=== PATIENT | female | born 1950 | race Caucasian/White ===

== ENCOUNTER 2022-03-08 14:31 | Emergency (ER) | payer MEDICARE, OTHER, SELFPAY ==
[2022-03-08 14:53] VITALS: BP 137/78; PULSE 54; RESP 16; TEMP 37.3; O2SAT 97; BMI 44.4
--- NOTE | 2022-03-08 15:54 | ED_ITS ---
HPI - General Adult General Chief complaint: Dizziness/Vertigo Stated complaint: Heart palpitations, dizziness Time Seen by Provider: 03/08/22 15:13 History of Present Illness HPI narrative: 71-year-old female coming in today complaining of an episode of feeling woozy this morning. She states that she just felt ?lightheaded. She stated that she would half to sometimes sit and rest and the lightheadedness would past and this went on for about 2 hours. The wooziness never lasting for more than a few minutes at a time. She stated that she has been doing her usual daily activities today which includes climbing up and down stairs. She does not feel nauseated, no vomiting, no diaphoresis. She denies chest pain or abdominal pain. She has no headache changes in her vision or hearing. She states that she had a very busy week in that went from morning to night both Tuesday and Tuesday and she was surrounded by many people. Last night she knew she had to get good sleep so she took some NyQuil at around 9:00 p.m.. She also had a bit of a cough and runny nose last night but she does not feel those things this morning. She is concerned that she is having a stroke secondary to her carotid being 78% occluded. She denies any neurologic deficits. She denies any slurred speech. She denies any weakness in any of her legs or arms. She denies difficulty walking in a straight line. She is not confused or feeling sleepy. She recently had an aortic valve replacement secondary to aortic stenosis. And her past medical history is also significant for obesity, hypertension, hyperlipidemia, hypothyroidism, psoriasis, history of lymphocytic colitis. She denies any increasing shortness of breath, swelling of her extremities, difficulty lying to go to sleep at night. Related Data Home Medications Medication Instructions Recorded Confirmed warfarin 5 mg tablet 5 mg PO QDAY 02/25/22 03/08/22 levothyroxine 25 mcg tablet mcg DAILY 03/08/22 Previous Rx's Medication Instructions Recorded atenolol 25 mg tablet 25 mg PO QDAY #90 tab 03/02/22 Allergies Allergy/AdvReac Type Severity Reaction Status Date / Time niacin Allergy Intermediate Hives Verified 03/08/22 15:01 Review of Systems Status of ROS: Reports: 10 or more systems reviewed and unremarkable except as noted in History and below [facility] Medical History (Updated 03/08/22 @ 19:07 by Wanda Moreland MD) History of heart valve stenosis Surgical History (Updated 02/24/22 @ 10:19 by Zina Cardenas) History of aortic valve replacement (06/26/21) History of dilation and curettage (1975) History of hemorrhoidectomy (2014) History of loop recorder (10/2016) History of tubal ligation (1976) Social History Smoking Status: Never smoker How often do you have a drink containing alcohol: never AUDIT-C Alcohol total score: 0 Non-prescribed substance use: denies use Exam Narrative: Exam Narrative: Obese, well-developed patient in no acute distress. Alert and oriented. Answers questions appropriately. Mood and affect are appropriate. Thoughts are goal oriented and rational. No tangential or magical thinking noted. Patient speaks in full sentences without needing to catch her breath. Speech is not slurred or pressured. HEENT: Normocephalic atraumatic. Pupils are equally round reactive to light. Extraocular muscles are intact. Conjunctivae are moist without any icterus noted. Moist mucous membranes. Posterior pharynx is normal. Neck is soft without any lymphadenopathy or thyromegaly. No masses are appreciated. Face is symmetric, with symmetrical facial movement. Cardiovascular: Heart is regular rate and rhythm S1 and S2, S1 is split. Lungs: Clear to auscultation bilaterally no wheezes rhonchi or rales are appreciated. Patient takes deep breaths without any discomfort. Abdomen: Soft and nontender nondistended with normal bowel sounds. Extremities: Bilateral lower extremities have trace edema. Normal DP and PT pulses. Skin: Well perfused without any obvious rashes. Strength is 5/5 of the upper and lower extremities. Reflexes are 2+ and symmetric at the knees. Cranial 3-12 are normal. There no nystagmus either horizontally or vertically. Const: Vital Signs, click to edit/add: Vital Signs - 24 hr 03/08/22 14:53 Temperature 99.1 F Pulse Rate [Right Pulse Oximeter] 54 L Respiratory Rate 16 Blood Pressure [Ri ght Upper Arm] 137/78 Pulse Oximetry 97 Course Vital Signs Vital signs: Initial Vital Signs Temperature 99.1 F 03/08/22 14:53 Temperature Source Temporal Artery Scan 03/08/22 14:53 Pulse Rate 54 L 03/08/22 14:53 Pulse Rhythm 03/08/22 14:53 Respiratory Rate 16 03/08/22 14:53 Blood Pressure 137/78 03/08/22 14:53 Blood Pressure Mean 97 03/08/22 14:53 Blood Pressure Position Sitting 03/08/22 14:53 Pulse Oximetry 97 03/08/22 14:53 Oxygen Delivery Method 03/08/22 14:53 Vital Signs Temperature 99.1 F 03/08/22 14:53 Pulse Rate 54 L 03/08/22 14:53 Respiratory Rate 16 03/08/22 14:53 Blood Pressure 137/78 03/08/22 14:53 Pulse Oximetry 97 03/08/22 14:53 Temperature 99.1 F 03/08/22 14:53 Pulse Rate 54 L 03/08/22 14:53 Respiratory Rate 16 03/08/22 14:53 Blood Pressure 137/78 03/08/22 14:53 Pulse Oximetry 97 03/08/22 14:53 Medical Decision Making MDM Narrative Medical decision making narrative: 71-year-old female with an episode of feeling woozy this morning. Has felt fine for the remainder of the day and since she has been here. Her workup was entirely unremarkable. Patient is reassured. Of note patient is on atenolol, and her pulse was bradycardic-something to discuss with her primary care provider as it may cause feelings of dizziness. Medical Records Medical records reviewed: Yes I reviewed the patient's medical records Lab Data Lab results reviewed: Yes I reviewed the patient's lab results Labs: Lab Results 03/08/22 03/08/22 03/08/22 Range/Units 16:05 16:05 16:09 WBC 7.10 (4.50-11.00) K/uL RBC 4.15 (4.00-5.20) m/uL Hgb 12.4 (12.0-16.0) gm/dL Hct 39.4 (33.0-51.0) % MCV 95 (80-100) fL MCH 30 (26-34) pg MCHC 32 (32-36) gm/dL RDW Coeff of Juan Diego 13.5 (11.5-15.5) % Plt Count 256 (140-440) K/uL Neut % (Auto) 72.1 H (42.0-72.0) % Lymph % (Auto) 17.9 L (20-44) % Bureau % (Auto) 7.0 (0.0-11.0) % Eos % (Auto) 2.3 (0.0-7.0) % Baso % (Auto) 0.6 (0.0-3.0) % Neut # (Auto) 5.10 (1.7-7.0) K/uL Lymph # (Auto) 1.30 (0.90-2.90) K/uL Bureau # (Auto) 0.50 (0.00-0.90) K/UL Eos # (Auto) 0.16 (0.00-0.50) K/uL Baso # (Auto) 0.04 (0.00-0.30) K/uL Abs Immat Gran (auto) 0.01 (0.00-0.30) K/uL Sodium 139 (135-149) mmol/L Potassium 4.3 (3.6-5.1) mmol/L Chloride 108 (96-114) mmol/L Carbon Dioxide 28 (20-32) mmol/L BUN 18 (7-30) mg/dL Creatinine 0.8 (0.5-1.5) mg/dL Estimated Creat Clear 40.07 Estimated GFR 80 ml/min Glucose 99 (60-115) mg/dL Calcium 8.6 (8.4-10.6) mg/dL Total Bilirubin 0.4 (0.1-1.5) mg/dL Direct Bilirubin 0.2 (0.0-0.5) mg/dL AST 37 H (12-35) U/L ALT 37 H (4-35) U/L Alkaline Phosphatase 108 (40-150) U/L Total Protein 6.1 (6.0-8.3) g/dL Albumin 3.5 (3.3-5.0) g/dL Urine Color (Yellow) Urine Appearance (Clear) Urine pH (5.0-8.5) Ur Specific [place] (1.000-1.030) Urine Protein (Negative) Urine Glucose (UA) (Negative) Urine Ketones (Negative) Urine Blood (Negative) Urine Nitrite (Negative) Urine Bilirubin (Negative) Urine Urobilinogen (0.2-1.0) Ur Leukocyte Esterase (Negative) SARS-CoV-2 (PCR) Negative SARS-CoV-2 (Negative) Influenza Type A (PCR) Negative PCR FLU A (Negative) Influenza Type B (PCR) Negative PCR FLU B (Negative) POC Troponin I (0.01-0.04) ng/ml 03/08/22 03/08/22 Range/Units 16:10 18:45 WBC (4.50-11.00) K/uL RBC (4.00-5.20) m/uL Hgb (12.0-16.0) gm/dL Hct (33.0-51.0) % MCV (80-100) fL MCH (26-34) pg MCHC (32-36) gm/dL RDW Coeff of Juan Diego (11.5-15.5) % Plt Count (140-440) K/uL Neut % (Auto) (42.0-72.0) % Lymph % (Auto) (20-44) % Bureau % (Auto) (0.0-11.0) % Eos % (Auto) (0.0-7.0) % Baso % (Auto) (0.0-3.0) % Neut # (Auto) (1.7-7.0) K/uL Lymph # (Auto) (0.90-2.90) K/uL Bureau # (Auto) (0.00-0.90) K/UL Eos # (Auto) (0.00-0.50) K/uL Baso # (Auto) (0.00-0.30) K/uL Abs Immat Gran (auto) (0.00-0.30) K/uL Sodium (135-149) mmol/L Potassium (3.6-5.1) mmol/L Chloride (96-114) mmol/L Carbon Dioxide (20-32) mmol/L BUN (7-30) mg/dL Creatinine (0.5-1.5) mg/dL Estimated Creat Clear Estimated GFR ml/min Glucose (60-115) mg/dL Calcium (8.4-10.6) mg/dL Total Bilirubin (0.1-1.5) mg/dL Direct Bilirubin (0.0-0.5) mg/dL AST (12-35) U/L ALT (4-35) U/L Alkaline Phosphatase (40-150) U/L Total Protein (6.0-8.3) g/dL Albumin (3.3-5.0) g/dL Urine Color Yellow (Yellow) Urine Appearance Clear (Clear) Urine pH 6.0 (5.0-8.5) Ur Specific [place] 1.010 (1.000-1.030) Urine Protein Negative (Negative) Urine Glucose (UA) Negative (Negative) Urine Ketones Negative (Negative) Urine Blood Negative (Negative) Urine Nitrite Negative (Negative) Urine Bilirubin Negative (Negative) Urine Urobilinogen 0.2 (0.2-1.0) Ur Leukocyte Esterase Negative (Negative) SARS-CoV-2 (PCR) (Negative) Influenza Type A (PCR) (Negative) Influenza Type B (PCR) (Negative) POC Troponin I 0.01 (0.01-0.04) ng/ml ECG Data Attestation: I personally reviewed and interpreted this ECG as follows: (Sinus bradycardia with a pulse of 52) Discharge Plan Discharge Clinical Impression: Light-headed Patient Disposition: Home, Self-Care Condition: Improved Additional Instructions: History get plenty of rest, stay well hydrated and eat nutritious meals. Return if your symptoms come back or if you develop chest pain or fever. Sometimes a low pulse can also cause the feeling of lightheadedness-discuss with your primary care provider your use of atenolol which can make your pulse very low. Prescriptions: No Action levothyroxine 25 mcg tablet DAILY 0RF warfarin 5 mg tablet 5 mg PO QDAY 0RF Rx Instructions: Patient to take 5 mg Tue/Tue and 10 mf ROW atenolol 25 mg tablet 25 mg PO QDAY Qty: 90 0RF Follow Up/Referrals: Nai Law MD [Primary Care Provider] - Stand Alone Forms: [employer] Info Instructions
[2022-03-08 16:20] LABS: Basophils Absolute Auto 0.04 K/uL (0.00-0.30); Basophils Percent Auto 0.6 % (0.0-3.0); Eosinophils Absolute Auto 0.16 K/uL (0.00-0.50); Eosinophils Percent Auto 2.3 % (0.0-7.0); Hematocrit 39.4 % (33.0-51.0); Hemoglobin* 12.4 gm/dL (12.0-16.0); Immature Granulocytes Abs Auto 0.01 K/uL (0.00-0.30); Lymphocytes Percent Auto 17.9 % (20-44); Mean Corpuscular HGB Conc 32 gm/dL (32-36); Mean Corpuscular Hemoglobin 30 pg (26-34); Mean Corpuscular Volume 95 fL (80-100); Neutrophils Percent Auto 72.1 % (42.0-72.0); Platelet Count* 256 K/uL (140-440); RDW Coefficient of Variation % 13.5 % (11.5-15.5); Red Blood Count 4.15 m/uL (4.00-5.20)
[2022-03-08 16:21] LABS: Troponin, Point-of-Care* 0.01 ng/ml (0.01-0.04)
[2022-03-08 16:24] LABS: Slide Review Reflex No
[2022-03-08 16:45] LABS: Albumin* 3.5 g/dL (3.3-5.0); Chloride* 108 mmol/L (96-114); Potassium* 4.3 mmol/L (3.6-5.1); Sodium* 139 mmol/L (135-149)
[2022-03-08 16:47] LABS: Carbon Dioxide* 28 mmol/L (20-32); Creatinine* 0.8 mg/dL (0.5-1.5); Est. Creatinine Clearance* 40.07; Estimated Glomerular Filt Rate 80 ml/min
[2022-03-08 16:48] LABS: Alanine Aminotransferase* 37 U/L (4-35); Alkaline Phosphatase* 108 U/L (40-150); Aspartate Amino Transferase* 37 U/L (12-35); Bilirubin Direct* 0.2 mg/dL (0.0-0.5); Bilirubin Total* 0.4 mg/dL (0.1-1.5); Blood Urea Nitrogen* 18 mg/dL (7-30); Calcium* 8.6 mg/dL (8.4-10.6); Glucose* 99 mg/dL (60-115); Total Protein* 6.1 g/dL (6.0-8.3)
[2022-03-08 16:58] LABS: PCR FLU A Negative PCR FLU A (Negative); PCR FLU B Negative PCR FLU B (Negative)
[2022-03-08 17:16] LABS: SARS PCR* Negative SARS-CoV-2 (Negative)
[2022-03-08 18:53] LABS: Appearance Urine Clear (Clear); Bilirubin Urine Negative (Negative); Blood Urine Negative (Negative); Color Urine Yellow (Yellow); Glucose Urine Negative (Negative); Ketones Urine Negative (Negative); Leukocyte Esterase Urine Negative (Negative); Nitrite Urine Negative (Negative); Protein Urine Negative (Negative); Urobilinogen Urine 0.2 (0.2-1.0)
[2022-03-08 19:00] VITALS: BP 121/59; PULSE 62; RESP 12; O2SAT 98
[2022-03-08 19:17] LABS: RBC Urine 0-2 (0-2); Squamous Epithelial Cell Urine Few (None-Few); WBC Urine 0-2 (0-5)
--- OUTSIDE RECORDS SUMMARY | 2022-03-30 16:00 | XMS_ITS | Encounter Summary ---
:1950 Author Organization [facility] Address [address] [place] [address] Care Team Providers Name Role Phone Elsewhere, Pcp Primary Care Provider Unavailable Reason for Visit Outpatient (Routine) - Closed Specialty Diagnoses / Procedures Referred By Contact Refer red To Contact Diagnoses Overactive Bladder Urgency Urinary Symptom Urinary Urinary Urge Incontinence Cystocele Ad Juarez M.D. [facility] Procedures UROGYN Cystoscopy [address] [place] [address] Referral ID Status Reason Start Date Expiration Date Visits Requ ested Visits Authorized [id number] Closed 05/12/2021 05/12/2022 1 1 Encounter Details Date Type Department Care Team Description 05/12/2021 Procedure visit Department of Ad Juarez Overact mai Bladder; Obstetrics and Marjan Calvo Urgency Urinary; Gynecology, Division [address] [place] [address] Symptom Urinary; of Urogynecology in [place], [place] Urinary Urge Incontinence; [place], [place] [address] Cystocele [address] [facility] [phone] [place], [place] (Work) [phone] Social History Tobacco Use Types Packs/Day Years Used Date Smoking Tobacco: Never Smokeless Tobacco: Never Sex Assigned at Date Recorded Not on file documented as of this encounter Procedure Notes Ad Juarez M.D. - 05/12/2021 11:00 AM CDTAssociated Order(s): UROGYN Cystoscopy Pre-Procedure Diagnose(s): Overactive Bladder; Urgency Urinary; Symptom Urinary; Urinary Urge Incontinence; Cystocele Post-Procedure Diagnose(s): Overactive Bladder; Urgency Urinary; Symptom Urinary; Urinary Urge Incontinence; Cystocele UROGYN Cystoscopy Date/Time: 05/12/2021 11:29 AM Performed by: Ad Juarez M.D. Authorized by: Ad Juarez M.D. PROCEDURE DETAILS A 0-degree cystoscope was introduced and the urethra examined.: yes Urethra: normal A 70-degree cystoscope was inserted and the bladder visualized in a systematic fashion.: yes The bladder trigone was inspected, ureteral orifices identified, and efflux of urine observed bilaterally. The urethrovesical junction was evaluated at full bladder capacity.: yes Trigone: normal Right ureter: normal function Left ureter: normal function Bladder: normal Bladder biopsy performed?: no PRE-PROCEDURE DETAILS Indications: urinary frequency Appropriate hand hygiene, gown, cap, mask, protective eyewear, sterile gloves, skin preparation, sterile drape, and strict aseptic technique were utilized as applicable for the procedure.: yes Site preparation: Povidone-iodine SEDATION / ANESTHESIA Anesthesia method: topical application Topical application type: lidocaine POST-PROCEDURE DETAILS Procedure completed successfully: yes ATTESTATION STATEMENT A resident or fellow participated in the procedure, and the inbound sales consultant was present for the entire procedure. GYNSURG Exam Amb documented in this encounter Plan of Treatment Not on filedocumented as of this encounter Procedures Procedure Name Priority Date/Time Associated Comments Diagnosis ND CYSTOURETHROSCOPY Routine 05/12/2021 11:29 Overactive Bladder Results for this AM CDT Urgency Urinary procedure are in Symptom Urinary the results Urinary Urge section. Incontinence Cystocele documented in this encounter Results ND CYSTOURETHROSCOPY (05/12/2021 11:29 AM CDT) Narrative MMODAL - 05/12/2021 11:29 AM CDT Ad Juarez M.D. ? 05/12/2021 ??4:09 PM UROGYN Cystoscopy Date/Time: 05/12/2021 11:29 AM Performed by: Ad Juarez M.D. Authorized by: Ad Juarez M.D. PROCEDURE DETAILS ??A 0-degree cystoscope was introduced and the urethra examined.: yes ?Urethra: normal ?A 70-degree cystoscope was inserted a nd the bladder visualized in a systematic fashion.: yes ?The bladder trigone was inspected, ur eteral orifices identified, and efflux of urine observed bilaterally. Th e urethrovesical junction was evaluated at full bladder capacity.: yes ?Trigone: normal ?Right ureter: normal function ?Left ureter: normal function ?Bladder: normal ?Bladder biopsy performed?: no ?? PRE-PROCEDURE DETAILS ??Indications: urinary frequency ?Appropriate hand hygiene, gown, cap, mask, protective eyewear, sterile gloves, skin preparation, sterile drape, and strict aseptic technique were utilized as applicable for the procedure .: yes ?Site preparation: ??Povidone-iodine SEDATION / ANESTHESIA Anesthesia method: topical application Topical application type: lidocaine POST-PROCEDURE DETAILS ??Procedure completed successfully: yes ?? ATTESTATION STATEMENT A resident or fellow participated in the procedure, and the inbound sales consultant was present for the entire procedure. Ad Juarez M.D. OB GYNE ORDERABLES Performing Organization Address City/State/ZIP Code Phon e Number MMODAL MMODAL NA documented in this encounter Visit Diagnoses Diagnosis Overactive Bladder Urgency Urinary Symptom Urinary Urinary Urge Incontinence Cystocele documented in this encounter Care Teams Radiographer Angiogram Relationship Specialty Start Date End Date Elsewhere, Pcp PCP - General Family Medicine 05/08/21 documented as of this encounter
--- OUTSIDE RECORDS SUMMARY | 2022-03-30 16:00 | XMS_ITS | Clinical Summary ---
:1950 Author Organization [facility] Address [address] [place] [address] Care Team Providers Name Role Phone Elsewhere, Pcp Primary Care Provider Unavailable Source Comments Patient records contain information from all sites at [facility]. For routine questions regarding patient records, call [phone] during business hours, M-F 8:00 AM - 5:00 PM Central Time. Record requests for emergency care only can be directed to [phone] at any time.[facility] Allergies Active Allergy Reactions Severity Noted Date Comments Niacin Other (see comments) 11/22/2007 Flushin g? Medications Medication Sig Dispensed Refills Start Date End Date Status atenolol (TENORMIN) Take 1 tablet by 0 10/25/2016 Active 50 mg tablet mouth daily. levothyroxine Take 1 tablet by 0 10/25/2016 Active (SYNTHROID, mouth daily. LEVOTHROID) 75 mcg tablet multivitamin tablet Take 2 tablets by 0 10/25/2016 Active mouth daily. aspirin [address] Take 81 mg by mouth 0 Active tablet daily. coenzyme Q10 100 Take by mouth 0 Active mg/mL liquid daily. 2 Tablespoons daily estradioL (VAGIFEM) Insert 1 tablet (10 18 tablet 3 02/17/2021 Active 10 mcg vaginal mcg) into vagina at tabletIndications: bedtime for two Atrophy Vagina Due To weeks then at Estrogen Deficiency bedtime twice a week. Additional Information Patient not taking. Reported on 03/24/2021 rosuvastatin (CRESTOR) 40 Take 40 mg by 0 03/24/2021 Active mg tablet mouth daily. TURMERIC ORAL Take 15 mg by 0 Ac tive mouth daily. One TBSP daily. ascorbic acid, vitamin C, Take 1,000 mg by 0 Active (Vitamin C) 1,000 mg mouth daily. tablet cholecalciferol (Vitamin Take 125 mcg by 0 Active D3) 125 mcg (5,000 Unit) mouth daily. tablet tolterodine (Detrol LA) 4 Take 1 capsule (4 30 capsule 11 05/1305/13/2022 Active mg 24 hr capsule mg total) by mouth daily. Active Problems Problem Noted Date Incontinence Urinary Stress And Urge 02/17/2021 Overview: Bladder diary reviewed. Discussed bladde r training and she should start with a goal of 1 hour and gradually increased to 2-1/2 to 3 hours. She has a mild to moderate cystocele and rectocele. Discussed c ontinuing with Vagifem and discussed the benefits for this prior to surgery. Discussed it would be unusual for this to cause her vertigo. We will have her meet with UroGyn in [facility] to discuss potential surgery. Stenosis Aortic Valve Acquired 02/27/2018 Palpitations 02/27/2018 Hypertension Essential Primary 02/27/2018 Hypercholesterolemia Familial 10/26/2016 Stenosis Carotid Artery 10/25/2016 Morbid Obesity Body Mass Index Greater Than Or Equal T o 40 Adult 10/25/2016 Hyperlipidemia 10/25/2016 Social History Tobacco Use Types Packs/Day Years Used Date Smoking Tobacco: Never Smokeless Tobacco: Never Sex Assigned at Date Recorded Not on file Last Filed Vital Signs Vital Sign Reading Time Taken Comments Blood Pressure 138/72 03/24/2021 10:03 AM CDT Pulse 60 03/24/2021 10:03 AM CDT Temperature - - Respiratory Rate 16 03/24/2021 10:03 AM CDT Oxygen Saturation - - Inhaled Oxygen Concentration - - Weight 110 kg (242 lb 15.2 oz) 03/24/2021 10:03 AM CDT Height 155.3 cm (5' 1.14) 02/27/2018 7:53 AM CDT Body Mass Index 45.69 02/27/2018 7:53 AM CDT Plan of Treatment Health Maintenance Due Date Last Done Comments Bone Density Scan (Osteoporosis 1950 Screen) CT Colonography 1950 Cologuard 1950 FIT 1950 Hepatitis C Screening 1950 Zoster Vaccines (1 of 2) 2002 Mammogram 09/27/2017 09/27/2016 (Performed elsewhere), 11/06/1999 Thyroid Stimulating Hormone (TSH) 09/27/2020 09/27/2019, test for thyroid function Depression Screening (Annual PHQ-2) 08/22/2021 Fall Risk Screen (Annual) 08/22/2021 COVID-19 Vaccine (4 - Booster for 12/10/2021 08/11/2021, , Pfizer series) 10/26/2020 Office Visit for Blood Pressure Check 03/24/2022 03/24/2021 / Re-check Influenza Vaccine (#1) 2022 05/02/2018 Fasting Glucose for Diabetes 09/27/2022 09/27/2019, 018, Screening 10/25/2016 Colonoscopy 08/27/2023 08/27/2013 (Performed elsewhere) Colorectal Cancer Screening 08/27/2023 Fasting Lipid Panel 09/27/2024 09/27/2019, 05/02/2018, 10/19/2016 (Performed elsewhere) DTaP,Tdap,and Td Vaccines (3 - Td or 09/27/2029 09/27/2019, 10/15/2008 Tdap) Pneumococcal vaccine (65+ years) Completed 09/27/2019, 06/2018 Medical Devices Implanted Type Area Director Smb Sales Device Shelf Model / Identifier Expiration Serial / Date Lot Linqsys Loop Recorder System - [id number] Implantable Othe r/Legacy - Medtronic / Implanted: Qty: 1 on 10/26/2016 Loop Recorder See Implant [id number] / Description Description: Device Director Smb Sales - SPARQ Body Location - Other. Left. Device Status Text - [id number]. Battery is . Insurance Payer Benefit Plan Subscriber ID Effective Phone Address Typ e / Group Dates MEDICARE MEDICARE A [id number] 2017-Pres [address] [place] [address] FOR FOR [id number] 2017-Prese [phone] [address] [employer] LIFE LIFE [address] [place] [address] (Home) [phone] [place], [place] (Work) [address] Care Teams Bd Special Education Teacher Relationship Specialty Start Date End Date Elsewhere, Pcp PCP - General Family Medicine 05/08/21
--- OUTSIDE RECORDS SUMMARY | 2022-03-30 16:00 | XMS_ITS | Encounter Summary ---
:1950 Author Organization [facility] Address [address] [place] [address] Care Team Providers Name Role Phone Unavailable Primary Care Provider Unavailable Encounter Details Date Type Department Care Team Description 08/28/2019 Hospital Encounter Department of Emmanuel Mclaughlin lpitations Cardiovascular Diseases Flex DriverB PeytonS. in [facility] 200 [facility] [address] [place] [phone] [phone] Social History Tobacco Use Types Packs/Day Years Used Date Smoking Tobacco: Never Sex Assigned at Date Recorded Not on file documented as of this encounter Medications at Time of Discharge Medication Sig Dispensed Refills Start Date End Date aspirin [address] tablet Take 81 mg by mouth 0 daily. atenolol (TENORMIN) 50 Take 1 tablet by 0 017 mg tablet mouth daily. coenzyme Q10 100 mg/mL Take by mouth daily. 0 liquid 2 Tablespoons daily levothyroxine Take 1 tablet by 0 10/25/2016 (SYNTHROID, LEVOTHROID) mouth daily. 75 mcg tablet multivitamin tablet Take 2 tablets by 0 mouth daily. atorvastatin (LIPITOR) Take 1 tablet by 0 10/25/ 017 05/08/2021 80 mg tablet mouth daily. colesevelam (WELCHOL) Take 3 tablets by 0 017 05/08/2021 625 mg tablet mouth 2 (two) times a day. LYCOPENE ORAL Take 1 capsule by 0 04/22 mouth daily. documented as of this encounter Plan of Treatment Not on filedocumented as of this encounter Procedures Procedure Name Priority Date/Time Associated Diagnosis Comme nts LOOP RECORDER Routine 08/28/2019 2:07 PM Palpitations Results for this REMOTE FOLLOW UP BROOM WORKER procedure a re in the results section. documented in this encounter Results LOOP RECORDER REMOTE FOLLOW UP (08/28/2019 2:07 PM BROOM WORKER) Component Value Ref Test Analysis Performed At [facility] Range Method Time Signature Date Time [id number] FOUNDATION Interrogation +0000 LAB SYSTEM Session Implantable Medtronic FOUNDATION Pulse Generator LAB SYSTEM Manager Women Implantable [id number] Reveal FOUNDATION Pulse Generator LINQ LAB SYSTEM Model Implantable [id number] FOUNDATION Pulse Generator LAB SYSTEM Serial Number Type Remote FOUNDATION Interrogation LAB SYSTEM Session Clinic Name ECG Event - [facility] LAB SYSTEM [place] Implantable Implantable FOUNDATION Pulse Generator Diagnostic LAB SYSTEM Type Monitor Implantable [id number] FOUNDATION Pulse Generator LAB SYSTEM Implant Date Anatomical Region Laterality Modality Other Specimen (Source) Anatomical Collection Method Collection Time Re ceived Time Location / / Volume Laterality 08/28/2019 10:39 AM BROOM WORKER Narrative 08/29/2019 5:24 PM BROOM WORKER *PURPOSE OF ENCOUNTER: * Summary transmission is received from Medtronic implantable loop recorder. *PRESENTING ECG: * Sinus rhythm with a h eart rate of 75 BPM. There was no ectopy noted. *BATTERY STATUS: *Okay. *EPISODES: * Since 07/26/2019 device rep orts episodes: No new alert observations were recorded by the device . *HISTOGRAMS: * Show normal distribution with majority of heart rates between 50-90 bpm. ?? *PATIENT ACTIVITY LEVEL: * Activity leve l ranges from 1.5-4 hours per day. *INTERPRETING HAIR DRESSER: *GAURAV Vaughan Emmanuel Romero CV IMPLANTABLE CARDIAC DE VICE documented in this encounter Visit Diagnoses Diagnosis Palpitations documented in this encounter
--- OUTSIDE RECORDS SUMMARY | 2022-03-30 16:00 | XMS_ITS | Continuity of Care Document ---
:1950 Author Organization [facility] Address [address] [address] [place] [address] Phone Care Team Providers Name Role Phone Bev CARLIN, Robbie Unavailable Unavailable Allergies, Adverse Reactions, Alerts Substance Reaction Status Criticality niacin Active No Information Medications Medication Instructions Dosage Effective Dates Status Comment s (start - stop) ATENOLOL (unknown take 1 tablet by Not Available - Active strength) oral route every day Lipitor 80 mg take 1 tablet by 80 MG - Active tablet oral route every day TIROSINT (unknown take 1 capsule by Not Available - Activ e strength) oral route every day Procedures Procedure Date UMP Charges Advance Directives Directive Yes / No Effective Date File Name No Information Encounters Encounter Practice Location Reason(s) Diagnoses Date Provider Provide rs Description For Visit Copied on Encounter [facility] Screening Bev CARLIN Referring [facility] colonoscopyDivertic Robbie. Provider: [facility] [place] [place] [facility] [address] [facility] [place]. [address] [place] [facility] [place], [place], [id number], [address], [place]. tel:[phone] tel:[phone] Family History Family Member Type Diagnosis Age At Onset Son Problem (finding) Liver disease Daughter Problem (finding) hypercholesterolemia in first degree relative Daughter Problem (finding) knee surgeries Father Problem (finding) hypercholesterolemia in first degree relative Mother Problem (finding) 90 Daughter Problem (finding) Alive and well Father Problem (finding) Payers Payer name Insurance type Covered libertarian ID Authorization(s ) No Information Social History Type Description Quantity Date Captured Comments Alcohol Use Details Unknown Caffeine Use Details Unknown Tobacco Use Status No Information Smoking Status Never smoker Sex Female Vital Signs Date / Height Weight BMI Pulse Blood Temperature Respiratory Body Head Head Circ. Wt./Marciano. BMI Pulse Inhaled Time: Rate Pressure Rate Surface Circumference Percenti le Percentile percentile Ox Ox Area 63.00 86.170 33.7 77 135/75 0.00 F 17 /min 94 % -2015 in kg 0 /min mm[Hg] (190.00 kg/m lbs) eter (2) Chief Complaint And Reason For Visit No Information Reason For Referral Reason For Referral No Information Plan Of Treatment Date Type Action Status No Information History Of Present Illness Encounter Date Complaint History Of Present I llness No Information Functional Status Date Functional Assessment No Information Instructions Date Instruction Additional Informati on Colon Cancer Prevention Related to Scree lobo colonoscopy Diverticulosis/Diverticulitis Related to Screening colonoscopy Assessments Type Assessment Date assessment Screening colonoscopy assessment Diverticulosis of colon Patient Care Teams Name Effective Dates (start - stop) Status Anusha nieves No Information
--- OUTSIDE RECORDS SUMMARY | 2022-03-30 16:00 | XMS_ITS | Encounter Summary ---
:1950 Author Organization [facility] Address [address] [place] [address] Care Team Providers Name Role Phone Unavailable Primary Care Provider Unavailable Reason for Referral Outpatient (Routine) - Closed Specialty Diagnoses / Procedures Referred By Contact Refer red To Contact Obstetrics and Diagnoses Incontinence Urinary Stress Female Bud Orosco [facility] Alycia Schmitt M.D. [address] [place] [address] Referral ID Status Reason Start Date Expiration Date Visits Requ ested Visits Authorized [id number] Closed 02/17/2021 02/17/2022 1 1 Scheduling Instructions Schedule after pelvic ultrasound Reason for Visit Reason Comments Urinary Incontinence urinary incontinence and chel quency Appointment Request (Routine) - Closed Specialty Diagnoses / Procedures Referred By Contact Refer red To Contact Obstetrics and Gynecology Referral ID Status Reason Start Date Expiration Date Visits Requ ested Visits Authorized [id number] Closed 02/03/2021 02/03/2022 1 1 Encounter Details Date Type Department Care Team Description 02/17/2021 Comprehensive Visit Department of Bud Orosco Urinary Stress Female (Primary Dx); Obstetrics and Marina Schmitt M.D. 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; Gynecology in [address] Pain Pelvic [facility] [phone] [place] [address] [place], [place] (Work) [phone] Social History Tobacco Use Types Packs/Day Years Used Date Smoking Tobacco: Never Smokeless Tobacco: Never Sex Assigned at Date Recorded Not on file documented as of this encounter Last Filed Vital Signs Vital Sign Reading Time Taken Comments Blood Pressure 142/80 02/17/2021 1:40 PM CDT Pulse - - Temperature - - Respiratory Rate - - Oxygen Saturation - - Inhaled Oxygen Concentration - - Weight 110 kg (241 lb 13.5 oz) 02/17/2021 1:40 PM CDT Height - - Body Mass Index 45.48 02/27/2018 7:53 AM CDT documented in this encounter Progress Notes Bud Orosco Jr., M.D., M.S. - 02/17/2021 2:00 PM CDT SUBJECTIVE CHIEF COMPLAINT/REASON FOR VISIT Urinary incontinence. HISTORY OF PRESENT ILLNESS Dinah Thorne is a 70 y.o. postmenopausal female who presents to the clinic for urinary frequency. She finds herself needing to urinate every 1- 1/2 hours. Last fall, she started gettingfrequent bladder infections and she was treated with multiple courses of antibiotics. She then switched to drinking strictly water. She does not feel like she has residual urination. She does not have any stress incontinence. She did pelvic floor therapy and she did keep track of her bladder habits, but it was not commented on. She does not have any dysuria. She has not used any medication for postmenopausal. She is sexually active and they usually use lubrication. She is also concerned about her stool. It is about a 1/2 inch in diameter, but very long. There are no further concerns at this time. CURRENT MEDICATIONS Current Outpatient Medications Medication Sig Dispense Refill ??? aspirin [address] tablet Take 81 mg by mouth daily. ??? atenolol (TENORMIN) 50 mg tablet Take 1 tablet by mouth daily. ??? atorvastatin (LIPITOR) 80 mg tablet Take 1 tablet by mouth daily. ??? coenzyme Q10 100 mg/mL liquid Take by mouth daily. 2 Tablespoons daily ??? levothyroxine (SYNTHROID, LEVOTHROID) 75 mcg tablet Take 1 tablet by mouth daily. 75mcg ??? multivitamin tablet Take 2 tablets by mouth daily. ??? colesevelam (WELCHOL) 625 mg tablet Take 3 tablets by mouth 2 (two) times a day. ??? LYCOPENE ORAL Take 1 capsule by mouth daily. No current facility-administered medications for this visit. ALLERGIES/CONTRAINDICATIONS Allergies Allergen Reactions ??? Niacin Other (see comments) Flushing? MEDICAL HISTORY No past medical history on file. SURGICAL HISTORY Past Surgical History: Procedure Laterality Date ??? IMPLANTATION ICP MONITOR Left 10/26/2016 >Loop recorder implant -- LINQ. ??? TUBAL LIGATION SOCIAL HISTORY Social History Socioeconomic History ??? Marital status: Spouse name: None ??? Number of children: None ??? Years of education: None ??? Highest education level: None Occupational History ??? None Tobacco Use ??? Smoking status: Never Smoker ??? Smokeless tobacco: Never Used Substance and Sexual Activity ??? Alcohol use: None ??? Drug use: None ??? Sexual activity: None Other Topics Concern ??? None Social History Narrative ??? None Social Determinants of Health Financial Resource Strain: ??? Difficulty of Paying Living Expenses: Food Insecurity: ??? Worried About Running Out of Food in the Last Year: ??? Ran Out of Food in the Last Year: Transportation Needs: ??? Lack of Transportation (Medical): ??? Lack of Transportation (Non-Medical): Physical Activity: ??? Days of Exercise per Week: ??? Minutes of Exercise per Session: Stress: ??? Feeling of Stress : Social Connections: ??? Frequency of Communication with Friends and Family: ??? Frequency of Social Gatherings with Friends and Family: ??? Attends Bahai Services: ??? Active Member of Clubs or Organizations: ??? Attends Club or Organization Meetings: ??? Marital Status: Intimate Partner Violence: ??? Fear of Current or Ex-Partner: ??? Emotionally Abused: ??? Physically Abused: ??? Sexually Abused: Social History Substance and Sexual Activity Drug Use Not on file Social History Substance and Sexual Activity Alcohol Use None FAMILY HISTORY No family history on file. OBJECTIVE VITAL SIGNS BP 142/80 Wt 110 kg BMI 45.48 kg/m?? PHYSICAL EXAMINATION General: Patient appears well groomed and well nourished. No acute distress. Oriented times three. Pelvis: Vagina and cervix appear normal without lesions, discharge or rashes. Uterus is anteverted, small, mobile and nontender. Good uterine support. She does have some stress incontinence with big cough. Mild to moderate cystocele and a slightly more pronounced rectocele which runs pretty much the length of her vagina. Adnexa are without masses or tenderness. Tenderness in abdomen with pelvic exam.Please note that medical hospital sales, Ivette Suazo, was present as american history teacher for pelvic exam. Rectum: Deferred. Genitalia: External genitalia: Bartholin's, urethral, and Chittenden's glands within normal limits. Smallinclusion cyst on her left labia. DIAGNOSTICS Bladder scan less than 10 cc's residual. ASSESSMENT / PLAN #1 Incontinence Urinary Stress Female Overview: At this time, I would like her to keep a bladder diary. Minimal residual urine. She has a mild cystocele and rectocele. Will have her start Vagifem. Will also have her get a pelvic ultrasound. I would like to see her back following her ultrasound. Discussed if she would like to have surgical management, would refer this to UroGyn in [place]. Probable candidate for anterior posterior appears plus orminus sling. She has had an attempted some conservative management but is not improved. Extensive discussion with the patient around physiology of this have drawn out the anatomy as well described how surgical correction might work. Do her previous heart condition she would be most comfortable having surgery at a tertiary center. 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 This document serves as a record of services personally performed by Bud Orosco MD. It was created on their behalf by Ivette Suazo, a trained medical hospital sales. The creation of this record is based onthe scribe's personal observations and the provider's statements to them. This document has been chec ked and approved by the attending provider. 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
--- OUTSIDE RECORDS SUMMARY | 2022-03-30 16:00 | XMS_ITS | Encounter Summary ---
:1950 Author Organization [facility] Address [address] [place] [address] Care Team Providers Name Role Phone Elsewhere, Pcp Primary Care Provider Unavailable Reason for Visit Reason Comments Pre-visit Intake Outpatient (Routine) - Closed Specialty Diagnoses / Procedures Referred By Contact Refer red To Contact Obstetrics and Diagnoses Incontinence Urinary Stress And Urge Rectocele Bud Orosco [facility] Alycia Schmitt M.D. [address] [address] Referral ID Status Reason Start Date Expiration Date Visits Requ ested Visits Authorized [id number] Closed 03/24/2021 03/24/2022 1 1 Encounter Details Date Type Department Care Team Description 05/08/2021 Clinical Communication Visit Review in Bud Orosco Pre-visit Intake Marina Allison Jr., M.D. 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
--- OUTSIDE RECORDS SUMMARY | 2022-03-30 16:00 | XMS_ITS | Encounter Summary ---
:1950 Author Organization [facility] Address [address] [place] [address] Care Team Providers Name Role Phone Elsewhere, Pcp Primary Care Provider Unavailable Reason for Visit Outpatient (Routine) - Closed Specialty Diagnoses / Procedures Referred By Contact Refer red To Contact Diagnoses Incontinence Urinary Stress And Urge Ad Juarez M.D. [facility] Procedures OBG Urodynamic Studies [address] [place] [phone] Referral ID Status Reason Start Date Expiration Date Visits Requ ested Visits Authorized [id number] Closed 05/07/2021 05/07/2022 1 1 Encounter Details Date Type Department Care Team Description 05/12/2021 Procedure visit Department of Ad Juarez Urinary Obstetrics and Marjan Calvo Stress And Urge Gynecology, Division [address] [place] [address] (Primary Dx) of Urogynecology in [place], [place] [address] [place] [address] [place], [place] (Work) [phone] Social History Tobacco Use Types Packs/Day Years Used Date Smoking Tobacco: Never Smokeless Tobacco: Never Sex Assigned at Date Recorded Not on file documented as of this encounter Procedure Notes Adalgisa Ravi M.D. - 05/12/2021 9:15 AM CDTAssociated Order(s): OBG Urodynamic Studies Pre-Procedure Diagnose(s): Incontinence Urinary Stress And Urge Post-Procedure Diagnose(s): Incontinence Urinary Stress And Urge OBG Urodynamic Studies Date/Time: 05/12/2021 9:41 AM Performed by: Ad Juarez M.D. Authorized by: Ad Juarez M.D. Care team members present 1. Caro Camara R.N. PROCEDURE DETAILS: Procedures: Combined (CMG S + Uro) Equipment used: Calibrated electronically Cough stress test: positive Flow pattern: dias variant Interpretation: normal variant Voided volume (mL): 20 Post-void residual (mL): 5 Postvoid residual measured by: catheter Volume infused (mL): 200 ((Pt felt she was at capacity, had strong urge to void at 200 ml) Detrusor activity:: stable during filling Support of significant prolapse:: yes Valsalva-related leakage: present (Present with sitting and standing, absent laying flat) Cough-related leakage: present (Present with sitting and standing, absent laying flat) Volume of stress urinary incontinence: moderate Repeat Uroflow: yes Cough stress test: positive Voided volume (mL): 210 Post-void residual (mL): 9 Post-void residual measured by: Ultrasound Uroflow: normal Cystometry: stress urinary incontinence and no urodynamic evidence of detrusor overactivity The following procedures were performed during this urodynamic study: Post-void residual - catheter, post-void residual - ultrasound, simple uroflow, bladder irrigation installation and CMG simple UNIVERSAL PROTOCOL All relevant documentation and testing were reviewed and available. All required blood products, implants, devices and or special equipment were made available as applicable. Pre-procedure verificationwas conducted and the correct site was marked if required. A fire risk assessment was done as applicable. The procedural time-out was conducted prior to performing the procedure and confirmed in a procedural pause. PRE-PROCEDURE DETAILS: Indications: urinary incontinence Appropriate hand hygiene, gown, cap, mask, protective eyewear, sterile gloves, skin preparation, sterile drape, and strict aseptic technique were utilized as applicable for the procedure.: yes Site preparation: Povidone-iodine SEDATION / ANESTHESIA Anesthesia method: none POST-PROCEDURE DETAILS Procedure completed successfully. yes Comments UA sent for testing. INTERPRETATION: 1. Normal variant uroflow study 2. Evidence of stress urinary incontinence: moderate volume with valsalva and cough 3. Normal post-void residual / no evidence of urinary retention 4. No evidence of detrusor overactivity 5. Abnormal bladder capacity: 200mL [place] Exam Amb documented in this encounter Plan of Treatment Not on filedocumented as of this encounter Procedures Procedure Name Priority Date/Time Associated Diagnosis Comme nts WY OSMOLALITY ASSAY Routine 05/12/2021 9:45 Resul ts for this URINE AM CDT procedure are i n the results section. DIPSTICK, U Routine 05/12/2021 9:45 Results for this AM CDT procedure are i n the results section. PH, RANDOM, U Routine 05/12/2021 9:45 Results for this AM CDT procedure are i n the results section. MICROSCOPIC MANUAL Routine 05/12/2021 9:45 Result s for this AM CDT procedure are i n the results section. BACTERIAL CULTURE, Routine 05/12/2021 9:45 Incontinence Urinar y Results for this AEROBIC + SUSC, URINE AM CDT Stress And Urge pro cedure are in the results section. URINALYSIS WITH Routine 05/12/2021 9:45 Incontinence Urinary R esults for this MICROSCOPIC AM CDT Stress And Urge procedure ar e in the results section. WY UROFLOWMETRY SIMPLE Routine 05/12/2021 9:41 Incontinence Ur inary Results for this AM CDT Stress And Urge procedure ar e in the results section. WY IRRI BLAD SMPL Routine 05/12/2021 9:41 Incontinence Urinary Results for this LAVAGE&/INSTILL AM CDT Stress And Urge procedure are in the results section. WY STEPHANIE PST VOID RESID Routine 05/12/2021 9:41 Incontinence Ur inary Results for this US NON IMG AM CDT Stress And Urge procedure ar e in the results section. WY CYSTOMETROGRAM Routine 05/12/2021 9:41 Incontinence Urinary Results for this SIMPLE AM CDT Stress And Urge procedure ar e in the results section. documented in this encounter Results (ABNORMAL) Dipstick, Urine (05/12/2021 9:45 AM CDT) Patholo gist Method Time Signature Hemoglobin, Trace (A) Negative 05/12/2021 DTL QL, U 1:01 PM CDT Leukocyte Small (A) Negative 05/12/2021 DTL Esterase, U 1:01 PM CDT Nitrite, U Negative Negative 05/12/2021 DTL 1:01 PM CDT Ketone, U Negative Negative 05/12/2021 DTL mg/dL 1:01 PM CDT Glucose, U Negative Negative 05/12/2021 DTL mg/dL 1:01 PM CDT Specimen Anatomical Collection Method Collection Time Receive d Time (Source) Location / / Volume Laterality Urine 05/12/2021 9:45 AM 1 CDT 12:42 PM CDT Ad Juarez M.D. LAB URINE ORDERABLES Performing Organization Address City/[facility] Phon e Number [facility] - [address] [place], [place] [address] [place] [address] [place], [place] [id number] [place] [address] Osmolality, Urine (05/12/2021 9:45 AM CDT) athologist Signature Osmolality, U 599 150 - 1150 05/12/2021 DTL mOsm/kg 1:25 PM CDT Specimen Anatomical Collection Method Collection Time Receive d Time (Source) Location / / Volume Laterality Urine 05/12/2021 9:45 AM 1 CDT 12:42 PM CDT Ad Juarez M.D. LAB URINE ORDERABLES Performing Organization Address City/[facility]/ZIP Code Phon e Number [facility] - 200 [place], [place] [address] [place] [id number] [place] [address] pH, Random, Urine (05/12/2021 9:45 AM CDT) P athologist Signature pH, Random, U 5.2 4.5 - 8.0 05/12/2021 DTL 1:25 PM CDT Specimen Anatomical Collection Method Collection Time Receive d Time (Source) Location / / Volume Laterality Urine 05/12/2021 9:45 AM 1 CDT 12:42 PM CDT Ad Juarez M.D. LAB URINE ORDERABLES Performing Organization Address City/[facility]/ZIP Code Phon e Number [facility] - [address] [place] [address] Laboratories[address] (ABNORMAL) Microscopic Manual (05/12/2021 9:45 AM CDT) P athologist Signature Microscopy Abnormal 05/12/2021 DTL 2:00 PM CDT RBC <3 <3 /hpf 05/12/2021 DTL 2:00 PM CDT WBC 11-20 (A) /hpf 05/12/2021 DTL 2:00 PM CDT Comment: ----REFERENCE VALUE---- 1-3 ??(Males) 1-10 (Females) Fat, Free Occas (A) /hpf 05/12/2021 2:00 PM CDT DTL Bacteria Present (A) 05/12/2021 2:00 PM CDT DTL Specimen Anatomical Collection Method Collection Time Receive d Time (Source) Location / / Volume Laterality Urine 05/12/2021 9:45 AM CDT 12:42 PM CDT Ad Juarez M.D. LAB URINE ORDERABLES Performing Organization Address [facility] Code Phon e Number [facility] - [address] [place] [address] Laboratories[address] (ABNORMAL) Urinalysis with Microscopic: Urine, Catheter (05/12/2021 9:45 AM CDT) Patholo gist Method Time Signature Source Urine, 05/12/2021 DTL Urine, 12:41 PM CDT Catheter Color, U Yellow 05/12/2021 DTL 12:42 PM CDT Clarity, U Cloudy (A) 05/12/2021 DTL 12:42 PM CDT Protein, U 23 <26 mg/dL 05/12/2021 DTL 1:42 PM CDT Protein/Osmola 0.38 <0.42 05/12/2021 DTL lity ratio 1:42 PM CDT Predicted 24 281 mg/24 h 05/12/2021 DTL Hr Protein 1:42 PM CDT Predicted 69-1136 mg/24 h 05/12/2021 DTL Range 1:42 PM CDT Comment Micro done 05/12/2021 DTL on <5 mL 1:57 PM CDT Specimen Anatomical Collection Method Collection Time Receive d Time (Source) Location / / Volume Laterality Urine (Urine, 05/12/2021 9:45 AM 05/12/20 Catheter) CDT 12:41 PM CDT Ad Juarez M.D. LAB URINE ORDERABLES Performing Organization Address City/State/ZIP Code Phon e Number [facility] - [address] [place], [place] [address] [facility] [address] Laboratories-[facility] [address] (ABNORMAL) Bacterial Culture, Aerobic + Susc, Urine (05/12/2021 9:45 AM CDT) Patholo gist Method Time Signature Urine Culture ESCHERICHIA COLI 05/15/2021 DTL >100,000 cfu/mL 2:01 PM CDT (A) Specimen Anatomical Collection Method Collection Time Receive d Time (Source) Location / / Volume Laterality Urine (Urine, 05/12/2021 9:45 AM 05/12/20 2:40 Straight CDT PM CDT Catheter) Comment: Specimen Source Site: Urine Organism Antibiotic Method Susceptibility Escherichia coli Ampicillin SUSCEPTIBILITY, 2 mcg/mL: Susce ptible ALMA (MCG/ML) Escherichia coli Meropenem SUSCEPTIBILITY, <=0.12 mcg/mL: ALMA (MCG/ML) Susceptible Escherichia coli Ertapenem SUSCEPTIBILITY, <=0.25 mcg/mL: ALMA (MCG/ML) Susceptible Escherichia coli Piperacillin + Tazobactam SUSCEPTIBILITY, <=16/ 4 mcg/mL: ALMA (MCG/ML) Susceptible Escherichia coli Ciprofloxacin SUSCEPTIBILITY, <=0.25 mcg/mL: ALMA (MCG/ML) Susceptible Escherichia coli Levofloxacin SUSCEPTIBILITY, <=0.5 mcg/mL: S usceptible ALMA (MCG/ML) Escherichia coli Cefazolin SUSCEPTIBILITY, <=2 mcg/mL: Elisa ceptible ALMA (MCG/ML) Escherichia coli Ceftriaxone SUSCEPTIBILITY, <=1 mcg/mL: Elisa ceptible ALMA (MCG/ML) Escherichia coli Ceftazidime SUSCEPTIBILITY, <=4 mcg/mL: Elisa ceptible ALMA (MCG/ML) Escherichia coli Cefepime SUSCEPTIBILITY, <=2 mcg/mL: Eilsa ceptible ALMA (MCG/ML) Escherichia coli Cefazolin (Uncomplicated SUSCEPTIBILITY, <=2 mc g/mL: Susceptible UTI) ALMA (MCG/ML) Comment: The interpretation applies t o uncomplicated urinary tract infections only. It al so applies to these oral cephalosporins: cefuroxime, cephalexin, and cefprozil. Escherichia coli Cefdinir SUSCEPTIBILITY, ALMA <=1 mcg/mL: (MCG/ML) Susceptible Escherichia coli Amikacin SUSCEPTIBILITY, ALMA <=8 mcg/mL: (MCG/ML) Susceptible Escherichia coli Gentamicin SUSCEPTIBILITY, ALMA <=1 mcg/mL: (MCG/ML) Susceptible Escherichia coli Tobramycin SUSCEPTIBILITY, ALMA <=1 mcg/mL: (MCG/ML) Susceptible Escherichia coli Aztreonam SUSCEPTIBILITY, ALMA <=4 mcg/mL: (MCG/ML) Susceptible Escherichia coli Trimethoprim + SUSCEPTIBILITY, ALMA <=0.5/9.5 m cg/mL: Sulfamethoxazole (MCG/ML) Susceptible Escherichia coli Nitrofurantoin SUSCEPTIBILITY, ALMA <=32 mcg/mL : (MCG/ML) Susceptible Escherichia coli Fosfomycin SUSCEPTIBILITY, ALMA <=64 mcg/mL : (MCG/ML) Susceptible Ad Juarez M.D. LAB [facility] Performing Organization Address City/State/ZIP Code Phon e Number [facility] - [address] [place] [address] [place] [address] [place] [address] Laboratories-[facility] [address] WY CYSTOMETROGRAM SIMPLE, WY STEPHANIE PST VOID RESID US NON IMG, WY IRRI BLAD SMPL LAVAGE&/INSTILL, WY UROFLOWMETRY SIMPLE (05/12/2021 9:41 AM CDT) Narrative Ad Juarez M.D. - 05/12/2021 9: 41 AM CDT Adalgisa Ravi M.D. ? 05/12/2021 ??4:58 PM OBG Urodynamic Studies Date/Time: 05/12/2021 9:41 AM Performed by: Ad Juarez M.D. Authorized by: Ad Juarez M.D. Care team members present 1. Caro Camara R.N. PROCEDURE DETAILS: ??Procedures: ??Combined (CMG S + Uro) ??Equipment used: ??Calibrated electron ically ??Cough stress test: positive ?Flow pattern: dias variant ?Interpretation: normal variant ?Voided volume (mL): ??20 ??Post-void residual (mL): ??5 ??Postvoid residual measured by: cathet er ?Volume infused (mL): ??200 ((Pt felt she was at capacity, had strong urge to void at 200 ml) ??Detrusor activity:: stable during jean-claude ling ?Support of significant prolapse:: yes ?Valsalva-related leakage: present (Pr esent with sitting and standing, absent laying flat) ?Cough-related leakage: present (Prese nt with sitting and standing, absent laying flat) ?Volume of stress urinary incontinence : moderate ?Repeat Uroflow: yes ?Cough stress test: positive ?Voided volume (mL): ??210 ??Post-void residual (mL): ??9 ??Post-void residual measured by: ??Ult rasound ??Uroflow: normal ?Cystometry: stress urinary incontinen ce and no urodynamic evidence of detrusor overactivity ?The following procedures were perform ed during this urodynamic study: ?? Post-void residual - catheter, post-void residual - ultrasound, simple uroflow, bladder irrigation installation and CMG simple UNIVERSAL PROTOCOL All relevant documentation and testing w ere reviewed and available. All required blood products, implants, devic es and or special equipment were made available as applicable. Pre-proced ure verification was conducted and the correct site was marked if required. A fire risk assessment was done as applicable. The procedural time-out w as conducted prior to performing the procedure and confirmed in a procedu ral pause. PRE-PROCEDURE DETAILS: ??Indications: urinary incontinence ?Appropriate hand hygiene, gown, cap, mask, protective eyewear, sterile gloves, skin preparation, sterile drape, and strict aseptic technique were utilized as applicable for the procedure .: yes ?Site preparation: ??Povidone-iodine SEDATION / ANESTHESIA Anesthesia method: none POST-PROCEDURE DETAILS ?? Procedure completed successfully. yes ?? Comments UA sent for testing. INTERPRETATION: 1. Normal variant uroflow study 2. Evidence of stress urinary incontinen ce: moderate volume with valsalva and cough 3. Normal post-void residual / no eviden ce of urinary retention 4. No evidence of detrusor overactivity 5. Abnormal bladder capacity: 200mL Ad Juarez M.D. OB GYNE ORDERABLES documented in this encounter Visit Diagnoses Diagnosis Incontinence Urinary Stress And Urge - P rimary documented in this encounter Care Teams Dress Marker Relationship Specialty Start Date End Date Elsewhere, Pcp PCP - General Family Medicine 05/08/21 documented as of this encounter
--- OUTSIDE RECORDS SUMMARY | 2022-03-30 16:00 | XMS_ITS | Encounter Summary ---
:1950 Author Organization [facility] Address [address] [place] [address] Care Team Providers Name Role Phone Unavailable Primary Care Provider Unavailable Encounter Details Date Type Department Care Team Description 03/10/2020 Hospital Encounter Department of Cale Douglas Cardiovascular Diseases Flex Driver, Ch.B., in [facility] Ph.D. [address] [place] [phone] (Wo rk) Social History Tobacco Use Types Packs/Day Years Used Date Smoking Tobacco: Never Sex Assigned at Date Recorded Not on file documented as of this encounter Medications at Time of Discharge Medication Sig Dispensed Refills Start Date End Date aspirin [address] tablet Take 81 mg by mouth 0 daily. atenolol (TENORMIN) 50 Take 1 tablet by 0 10/25/ 017 mg tablet mouth daily. coenzyme Q10 100 mg/mL Take by mouth daily. 0 liquid 2 Tablespoons daily levothyroxine Take 1 tablet by 0 10/25/2016 (SYNTHROID, LEVOTHROID) mouth daily. 75 mcg tablet multivitamin tablet Take 2 tablets by 0 7 mouth daily. atorvastatin (LIPITOR) Take 1 tablet [...] Associated Diagnosis Comme nts LOOP RECORDER Routine 03/10/2020 11:36 Palpitations Results fo r this REMOTE FOLLOW UP AM CDT procedure a re in the results section. documented in this encounter Results LOOP RECORDER REMOTE FOLLOW UP (03/10/2020 11:36 AM CDT) Component Value Ref Test Analysis Performed At [facility] gist Range Method Time Signature Date Time [id number] [facility] Interrogation +0000 LAB SYSTEM Session Implantable MedR2G Pulse Generator LAB SYSTEM Automatic Operator Implantable LNQ11 Reveal [facility] Pulse Generator LINQ LAB SYSTEM Model Implantable [id number] [facility] Pulse Generator LAB SYSTEM Serial Number Type Remote [facility] Interrogation LAB SYSTEM Session Clinic Name ECG Event - [facility] [place] LAB SYSTEM [place] Implantable Implantable [facility]ATION Pulse Generator Diagnostic LAB SYSTEM Type Monitor Implantable [id number] [facility] Pulse Generator LAB SYSTEM Implant Date Anatomical Region Laterality Modality Other Specimen (Source) Anatomical Collection Method Collection Time Re ceived Time Location / / Volume Laterality 03/09/2020 6:05 AM CDT Narrative 03/16/2020 8:03 PM CDT *PURPOSE OF ENCOUNTER: * Summary transmission is received from Medtronic implantable loop recorder. *PRESENTING ECG: * Sinus rhythm at 75 bp m. No ectopy was present. 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 *PATIENT ACTIVITY LEVEL: * Activity leve l ranges from 2-4 hours per day. *HISTOGRAMS: * Show normal distribution with majority of heart rates between 50-100 bpm. ?? *INTERPRETING TECH: * MICHAEL Fult[place] AT Cale Mccord, Ch.B., Ph.D. CV IMPLANTABLE CARDIAC DEVICE documented in this encounter Visit Diagnoses Diagnosis Palpitations documented in this encounter
--- OUTSIDE RECORDS SUMMARY | 2022-03-30 16:00 | XMS_ITS | Encounter Summary ---
:1950 Author Organization [facility] Address [address] [place] [address] Care Team Providers Name Role Phone Unavailable Primary Care Provider Unavailable Encounter Details Date Type Department Care Team Description 03/26/2021 Clinical Communication Department of Bud Orosco Obstetrics and Marjan Schmitt Gynecology in [address] [address] [place], [place] [phone] [address] (Work) [phone] Social History Tobacco Use Types Packs/Day Years Used Date Smoking Tobacco: Never Smokeless Tobacco: Never Sex Assigned at Date Recorded Not on file documented as of this encounter Miscellaneous Notes Telephone Encounter - Belinda Sotelo R.N. - 03/26/2021 10:33 AM CDT Called patient to inform her of her diagnosis. She has no other questions or concerns at this time. Telephone Encounter - Bud Orosco Jr., M.D. - 03/26/2021 10:28 AM CDT Rectocele, cystocele with mixed incontinence. Telephone Encounter - Livia Peña - 03/26/2021 10:13 AM CDT Reason for Communication: Patient called. She saw Dr Orosco last week. Her primary care provider is asking what his diagnosis was. She would like a call back with that information Current Can Nursing/Provider leave a detailed message?: yes Did the patient refuse triage through Nurse line? (for symptom based concerns): na Action Needed: wants call back Name of Medication (if relevant): na Please send all scheduling replies to scheduling pool. documented in this encounter Plan of Treatment Not on filedocumented as of this encounter Visit Diagnoses Not on filedocumented in this encounter
--- OUTSIDE RECORDS SUMMARY | 2022-03-30 16:00 | XMS_ITS | Encounter Summary ---
:1950 Author Organization [facility] Address [address] [place] [address] Care Team Providers Name Role Phone Unavailable Primary Care Provider Unavailable Encounter Details Date Type Department Care Team Description 02/06/2020 Hospital Encounter Department of Cale Douglas Cardiovascular Diseases Flex Driver, Ch.B., in [facility] Ph.D. [address] [facility] [address] [place] [address] [phone] (Wo rk) Social History Tobacco Use Types [...] Associated Diagnosis Comme nts LOOP RECORDER Routine 02/06/2020 9:26 AM Palpitations Results for this REMOTE FOLLOW UP CDT procedure a re in the results section. documented in this encounter Results LOOP RECORDER REMOTE FOLLOW UP (02/06/2020 9:26 AM CDT) Component Value Ref Test Analysis Performed At [facility] gist Range Method Time Signature Date Time [id number] [facility] Interrogation +0000 LAB SYSTEM Session Implantable Medtronic DvineWave Pulse Generator LAB SYSTEM Fbi Special Agent Implantable LNQ11 Reveal [facility] Pulse Generator LINQ LAB SYSTEM Model Implantable [id number] [facility] Pulse Generator LAB SYSTEM Serial Number Type Remote [facility] Interrogation LAB SYSTEM Session Clinic Name ECG Event - [facility] LAB SYSTEM [place] Implantable Implantable [facility]OUNDATION Pulse Generator Diagnostic LAB SYSTEM Type Monitor Implantable [id number] [facility] Pulse Generator LAB SYSTEM Implant Date Anatomical Region Laterality Modality Other Specimen (Source) Anatomical Collection Method Collection Time Re ceived Time Location / / Volume Laterality 02/06/2020 5:43 AM CDT Narrative 02/07/2020 7:30 AM CDT *PURPOSE OF ENCOUNTER: * Summary transmission is received from Medtronic implantable loop recorder. *PRESENTING ECG: * Sinus rhythm at 71 bp m. No ectopy was seen. *BATTERY STATUS: *Okay. *EPISODES: * Since 03-Jan-2020 device re ports episodes: No new alert observations were recorded by the device . *HISTOGRAMS: * Show normal distribution with majority of heart rates between 50-100 bpm. ?? *PATIENT ACTIVITY LEVEL: * Activity leve l ranges from 1.75-4 hours per day. *INTERPRETING TECH: * RAGHAVENDRA Vallejo Cale Mccord, Ch.B., Ph.D. CV IMPLANTABLE CARDIAC DEVICE documented in this encounter Visit Diagnoses Diagnosis Palpitations documented in this encounter
--- OUTSIDE RECORDS SUMMARY | 2022-03-30 16:00 | XMS_ITS | Encounter Summary ---
:1950 Author Organization [facility] Address [address] [place] [address] Care Team Providers Name Role Phone Unavailable Primary Care Provider Unavailable Reason for Visit Outpatient (Routine) - Closed Specialty Diagnoses / Procedures Referred By Contact Refer red To Contact Diagnoses Incontinence Urinary Stress Female Bud Orosco Jr., [facility] Procedures US Pelvis Transvaginal and Transabdominal US Pelvis Transvaginal and Transabdominal Doppler US Pelvis Transvaginal and Transabdominal M.DPeyton [address] [place] [phone] Referral ID Status Reason Start Date Expiration Date Visits Requ ested Visits Authorized [id number] Closed 02/17/2021 02/17/2022 1 1 Encounter Details Date Type Department Care Team Description 03/19/2021 Hospital Encounter Department of Bud Orosco inencmarlys Urinary Radiology in [place] Schmitt M.D. Stress Female Michelle, [address] [place], [place] [address] [address] [place], [place] [phone] (Work) [phone] Social History Tobacco Use Types Packs/Day Years Used Date Smoking Tobacco: Never Smokeless Tobacco: Never Sex Assigned at Date Recorded Not on file documented as of this encounter Medications at Time of Discharge Medication Sig Dispensed Refills Start Date End Date aspirin [address] tablet Take 81 mg by mouth 0 daily. atenolol (TENORMIN) 50 Take 1 tablet by 0 03/06/2 017 mg tablet mouth daily. coenzyme Q10 100 mg/mL Take by mouth daily. 0 liquid 2 Tablespoons daily estradioL (VAGIFEM) 10 Insert 1 tablet (10 18 tablet 3 01/21 mcg vaginal mcg) into vagina at tabletIndications: bedtime for two weeks Atrophy Vagina Due To then at bedtime twice Estrogen Deficiency a week. levothyroxine Take 1 tablet by 0 10/25/2016 (SYNTHROID, LEVOTHROID) mouth daily. 75 mcg tablet multivitamin tablet Take 2 tablets by 0 7 mouth daily. atorvastatin (LIPITOR) Take 1 tablet by 0 017 05/08/2021 80 mg tablet mouth daily. colesevelam (WELCHOL) Take 3 tablets by 0 017 05/08/2021 625 mg tablet mouth 2 (two) times a day. LYCOPENE ORAL Take 1 capsule by 0 04/22 mouth daily. documented as of this encounter Plan of Treatment Not on filedocumented as of this encounter Procedures Procedure Name Priority Date/Time Associated Comments Diagnosis US PELVIS RAD - Routine 03/19/2021 3:25 Incontinence Results for TRANSVAGINAL AND (most inpatients PM CDT Urinary Stress this procedure TRANSABDOMINAL and all Female are in the outpatients) results section. documented in this encounter Results US Pelvis Transvaginal and Transabdominal (03/19/2021 3:25 PM CDT) Anatomical Region Laterality Modality Pelvis, Ultrasound RST LOS, Ultrasound ARZ LOS, Ultrasound F LA N/A Ultrasound LOS Specimen (Source) Anatomical Collection Method Collection Time Re ceived Time Location / / Volume Laterality 03/20/2021 8:45 AM CDT Impressions 03/20/2021 8:47 AM CDT Bilateral ovaries are not seen. Otherwise negative pelvic ultrasound. Narrative 03/20/2021 8:47 AM CDT EXAM: ??US PELVIS TRANSVAGINAL AND TRANSABDOMINAL COMPARISON: ??None. TECHNIQUE: ??Transabdominal and transvag inal. FINDINGS: Uterus: 3.9 x 4.4 x 6.[address]ab[address] cy sts. Myometrium: Normal. Endometrium: Normal. Thickness: 6 mm ?? Bilateral ovaries are not seen and are p resumably obscured by bowel gas. Intraperitoneal Fluid: None. Transvaginal exam performed to better vi sualize the adnexa. ENDOMETRIAL THICKENING CRITERIA: Postmenopausal women with bleeding (Soci ety of Radiologists in Ultrasound consensus) * ??ET > 5 mm Postmenopausal women without bleeding (n o consensus) * ??Various reports suggest ET > 8-11 mm These thresholds cannot be used for foca l endometrial thickening, mass, or heterogeneity Procedure Note Fito Rivera M.D. - 03/20/2021 EXAM: US PELVIS TRANSVAGINAL AND TRANSAB DOMINAL COMPARISON: None. TECHNIQUE: Transabdominal and transvagin al. FINDINGS: Uterus: 3.9 x 4.4 x 6.0 cm. Nabothian cy sts. Myometrium: Normal. Endometrium: Normal. Thickness: 6 mm Bilateral ovaries are not seen and are p resumably obscured by bowel gas. Intraperitoneal Fluid: None. Transvaginal exam performed to better vi sualize the adnexa. ENDOMETRIAL THICKENING CRITERIA: Postmenopausal women with bleeding (Soci ety of Radiologists in Ultrasound consensus) * ET > 5 mm Postmenopausal women without bleeding (n o consensus) * Various reports suggest ET > 8-11 mm These thresholds cannot be used for foca l endometrial thickening, mass, or heterogeneity IMPRESSION: Bilateral ovaries are not seen. Otherwise negative pelvic ultrasound. Bud Orosco Jr., M.D. IMMarina US PROCEDURES documented in this encounter Visit Diagnoses Diagnosis Incontinence Urinary Stress Female documented in this encounter
--- OUTSIDE RECORDS SUMMARY | 2022-03-30 16:00 | XMS_ITS | Encounter Summary ---
:[address] [facility] Address [address] [place] [address] Care Team Providers Name Role Phone Unavailable Primary Care Provider Unavailable Reason for Referral Outpatient (Routine) - Closed Specialty Diagnoses / Procedures Referred By Contact Refer red To Contact Diagnoses Incontinence Urinary Stress And Urge Ad Juarez M.D. [facility] Procedures OBG Urodynamic Studies [address] [place] [phone] Referral ID Status Reason Start Date Expiration Date Visits Requ ested Visits Authorized [id number] Closed 05/07/2021 05/07/2022 1 1 Encounter Details Date Type Department Care Team Description 05/07/2021 Orders Only Department of Melvi Dorman Incontin ence Urinary Obstetrics and L, R.N. Stress And Urge Gynecology, Division of [address] [place] [address] (Primary Dx) Urogynecology in [place], [place] [address] [place] [address] [place], [place] (Work) [phone] Social History Tobacco Use Types Packs/Day Years Used Date Smoking Tobacco: Never Smokeless Tobacco: Never Sex Assigned at Date Recorded Not on file documented as of this encounter Plan of Treatment Not on filedocumented as of this encounter Results MD CYSTOMETROGRAM SIMPLE, MD STEPHANIE PST VOID RESID US NON IMG, MD IRRI BLAD SMPL LAVAGE&/INSTILL, MD UROFLOWMETRY SIMPLE (05/12/2021 9:41 AM CDT) Narrative [...] Urinary Stress And Urge - P rimary Incontinence Urinary Stress And Urge - P rimary documented in this encounter
--- OUTSIDE RECORDS SUMMARY | 2022-03-30 16:00 | XMS_ITS | Encounter Summary ---
:1950 Author Organization [facility] Address [address] [place] [address] Care Team Providers Name Role Phone Unavailable Primary Care Provider Unavailable Reason for Visit Reason Comments Urinary Problem COVID Nurse Line Encounter Details Date Type Department Care Team Description 02/03/2021 Nurse Triage Department of [facility] Monserrat Griffin, Ur inary Problem; COVID MedicineMichelle M.S., R.N. Nurse Line Clinic, in [address] [facility] [address] [place], [place] [phone] (Work) [phone] Social History Tobacco Use Types Packs/Day Years Used Date Smoking Tobacco: Never Sex Assigned at Date Recorded Not on file documented as of this encounter Miscellaneous Notes Telephone Encounter - Monserrat Griffin M.S., R.N. - 02/03/2021 8:24 AM CDT Chief Complaint / Reason for Call Patient is a 70 y.o. female calling regarding Urinary Problem and COVID Nurse Line. Assessment Concern: Dinah calls reporting urinary frequency with episodes of incontinence. No pain with urination. No fever. No back pain. Present for: Several months. Home cares tried: Physical Therapy to help pelvic muscles Calling to request: Appointment The recommended disposition is See a health care provider within 24 hours. Patient was transferred to clinic coordinator to schedule an appointment. Reason for Disposition ? ? [1] Can't control passage of urine (i.e., urinary incontinence) AND [2] new onset (< 2 weeks)or worsening Protocols used: URINARY [id number] Care Advice Patient/Caregiver understands and will follow care advice?: Yes, able to teach back CALL BACK IF: * Fever occurs * Unable to urinate and bladder feels full * You become worse. CARE ADVICE given per Urinary Symptoms (Adult) guideline. COVID-19 Nurse Line Screening ASSESSMENT Region Select appropriate region: : [place] Age Pathway Select approprite pathway: : Adult Have you had close contact* with a person who has a LABORATORY CONFIRMED case of COVID-19 in the past 14 days?: No (Continue Screening) In the last 48 hours, have you had a fever* OR symptoms that are unrelated to a preexisting illness?: No symptoms noted (Continue Screening) Have you tested positive for COVID-19 in the last 90 days?: No (Continue Screening) Have you been advised to undergo testing or are you requesting testing?: No, testing not recommended(End Screening) Testing Recommendation Endpoint Is testing recommended? : Not recommended to test PLAN Endpoint recommendation: Screening negative, testing not indicated at this time Care Points: -Wash hands frequently with soap and water for at least 20 seconds -If soap and water are not available, use a hand poultice machine operator -Avoid touching your eyes, nose and mouth. -Clean and disinfect high-touch surfaces routinely. -Wear a mask over your nose and mouth. A cloth face cover is not a substitute for social distancing -Continue to keep about 6 feet between yourself and others. -Avoid public areas and public transportation. -Find new ways to connect with family and friends, get support and share feelings. -Seek emergent care if any of the following occur Trouble breathing Bluish lips or face Persistent pain or pressure in the chest New confusion or inability to rouse. -Notify your regular care provider of any new or worsening symptoms. Asymptomatic without exposure Carepoints: Testing is not recommended at this time. If you become symptomatic, please call back for additional screening. Education: Patient/caregiver able to teach back Patient agreeable to plan of care: Yes The following references were used: [facility] novel coronavirus (COVID- 19) resources Nursing judgement documented in this encounter Plan of Treatment Not on filedocumented as of this encounter Visit Diagnoses Not on filedocumented in this encounter
--- OUTSIDE RECORDS SUMMARY | 2022-03-30 16:00 | XMS_ITS | Encounter Summary ---
:1950 Author Organization [facility] Address [address] [place] [address] Care Team Providers Name Role Phone Elsewhere, Pcp Primary Care Provider Unavailable Encounter Details Date Type Department Care Team Description 05/13/2021 Orders Only Department of Obstetrics and [facility], Al bronson Balderrama, Gynecology, Division of M.D. Urogynecology in [place] [address] [place], [place] [address] [place] [address] [place] [address] [phone] Social History Tobacco Use Types Packs/Day Years Used Date Smoking Tobacco: Never Smokeless Tobacco: Never Sex Assigned at Date Recorded Not on file documented as of this encounter Plan of Treatment Not on filedocumented as of this encounter Visit Diagnoses Not on filedocumented in this encounter Care Teams Before And After School Daycare Worker Relationship Specialty Start Date End Date Elsewhere, Pcp PCP - General Family Medicine 05/08/21 documented as of this encounter
--- OUTSIDE RECORDS SUMMARY | 2022-03-30 16:00 | XMS_ITS | Encounter Summary ---
:1950 Author Organization [facility] Address [address] [place] [address] Care Team Providers Name Role Phone Elsewhere, Pcp Primary Care Provider Unavailable Encounter Details Date Type Department Care Team Description 05/14/2021 Clinical Communication Department of Helene, Obstetrics and Monserrat Balderrama M.D. Gynecology, Division of [address] [facility] Urogynecology in [place], [place] [address] [place] [address] [place], [place] (Work) [phone] Social History Tobacco Use Types Packs/Day Years Used Date Smoking Tobacco: Never Smokeless Tobacco: Never Sex Assigned at Date Recorded Not on file documented as of this encounter Miscellaneous Notes Telephone Encounter - Monserrat Narayan M.D. - 05/14/2021 10:30 AM CDT Ms. Thorne is a [address] Juarez's, last visit on 05/12. On her urine studies, there isevidence of UTI with pansensitive E. Coli. I called to notify her of this result, she affirms some dysuria and increased urgency/frequency. Rx for nitrofurantoin BID x 7 days sent to preferred pharmacy. Return precautions reinforced. Monserrat Narayan M.D. documented in this encounter Plan of Treatment Not on filedocumented as of this encounter Visit Diagnoses Not on filedocumented in this encounter Care Teams Brick Dropper Relationship Specialty Start Date End Date Elsewhere, Pcp PCP - General Family Medicine 05/08/21 documented as of this encounter
--- OUTSIDE RECORDS SUMMARY | 2022-03-30 16:00 | XMS_ITS | Encounter Summary ---
:1950 Author Organization [facility] Address [address] [place] [address] Care Team Providers Name Role Phone Unavailable Primary Care Provider Unavailable Reason for Referral Outpatient (Routine) - Authorized Specialty Diagnoses / Procedures Referred By Contact Refer red To Contact Endocrinology Diagnoses Morbid Obesity Body Mass Index 45.0-49.9 Adult ([facility]) Nai Law M.D. [address] [address] Referral ID Status Reason Start Date Expiration Date Visits V isits Requested Authorized [id number] Authorized 03/25/2021 03/25/2022 1 1 Encounter Details Date Type Department Care Team Description 03/24/2021 [facility] Nai Law Morbid Obesity Body AND CLINICS Marjan Barnett Mass Index 45.0-49.[address] [place] [address] Adult ([facility]) ([place], [place] Dx) [phone] [phone] Social History Tobacco Use Types Packs/Day Years Used Date Smoking Tobacco: Never Smokeless Tobacco: Never Sex Assigned at Date Recorded Not on file documented as of this encounter Plan of Treatment Scheduled Referrals Name Type Priority Associated Order Schedule Diagnoses Endocrinology Referral Outpatient Referral Routine Morbid Obes ity Body Expected: Mass Index 03/25/2021 45.0-49.9 Adult (Approximate ), (HCC) Expires: 03/25/2024 documented as of this encounter Visit Diagnoses Diagnosis Morbid Obesity Body Mass Index 45.0-49.9 Adult (HCC) - Primary documented in this encounter
--- OUTSIDE RECORDS SUMMARY | 2022-03-30 16:00 | XMS_ITS | Encounter Summary ---
:1950 Author Organization [facility] Address [address] [place] [address] Care Team Providers Name Role Phone Unavailable Primary Care Provider Unavailable Encounter Details Date Type Department Care Team Description 10/31/2019 Hospital Encounter Department of Manuel, Palpitat ions Cardiovascular Diseases Cale Ignacio in [facility] malina Phillip, Ph.D. 200 [facility] [address] [place] [phone] [phone] (Wo rk) Social History Tobacco Use Types [...] Associated Diagnosis Comme nts LOOP RECORDER Routine 10/31/2019 4:49 PM Palpitations Results for this REMOTE FOLLOW UP CDT procedure a re in the results section. documented in this encounter Results LOOP RECORDER REMOTE FOLLOW UP (10/31/2019 4:49 PM CDT) Component Value Ref Test Analysis Performed At [facility] gist Range Method Time Signature Date Time [id number] [facility] Interrogation +0000 LAB SYSTEM Session Implantable [employer] FOUNDATION Pulse Generator LAB SYSTEM Software Intern Implantable LNQ11 Reveal FOUNDATION Pulse Generator LINQ LAB SYSTEM Model Implantable [id number] FOUNDATION Pulse Generator LAB SYSTEM Serial Number Type Remote [facility] Interrogation LAB SYSTEM Session Clinic Name ECG Event - [facility] LAB SYSTEM [place] Implantable Implantable FOUNDATION Pulse Generator Diagnostic LAB SYSTEM Type Monitor Implantable [id number] FOUNDATION Pulse Generator LAB SYSTEM Implant Date Anatomical Region Laterality Modality Other Specimen (Source) Anatomical Collection Method Collection Time Re ceived Time Location / / Volume Laterality 10/31/2019 2:41 PM CDT Narrative 11/01/2019 4:33 PM CDT *PURPOSE OF ENCOUNTER: * Summary transmission is received 10/31/2019 from [employer] implantable loop recorder. *PRESENTING ECG: * Sinus with an approxi mate heart rate of 88 BPM. No ectopy was seen. *BATTERY STATUS: *Okay. *EPISODES: * Since 09/29/2019 No new alert observations were recorded by the device. *PATIENT ACTIVITY LEVEL: * Activity leve l ranges from 2-4 hours per day. *HISTOGRAMS: * Show normal distribution with majority of heart rates between 50-100 bpm. ?? *INTERPRETING TECH: * Lubna Malone Cale Jackson M.D., Ph.D. CV IMPLANTABLE CAR DIAC DEVICE documented in this encounter Visit Diagnoses Diagnosis Palpitations documented in this encounter
--- OUTSIDE RECORDS SUMMARY | 2022-03-30 16:00 | XMS_ITS | Encounter Summary ---
:1950 Author Organization [facility] Address [address] [place] [address] Care Team Providers Name Role Phone Unavailable Primary Care Provider Unavailable Encounter Details Date Type Department Care Team Description 12/03/2019 Hospital Encounter Department of [place], Palpitat ions Cardiovascular Diseases in Vic Acevedo M.D. [place], [place] [address] [facility] [address] [place] [address] [phone] Social History Tobacco Use Types Packs/Day Years [...] Associated Diagnosis Comme nts LOOP RECORDER Routine 12/03/2019 9:13 AM Palpitations Results for this REMOTE FOLLOW UP CDT procedure a re in the results section. documented in this encounter Results LOOP RECORDER REMOTE FOLLOW UP (12/03/2019 9:13 AM CDT) Component Value Ref Test Analysis Performed At [facility] gist Range Method Time Signature Date Time [id number] [facility] Interrogation +0000 LAB SYSTEM Session Implantable [employer] FOUNDATION Pulse Generator LAB SYSTEM Field Seismologist Implantable LNQ11 Reveal FOUNDATION Pulse Generator LINQ LAB SYSTEM Model Implantable [id number] FOUNDATION Pulse Generator LAB SYSTEM Serial Number Type Remote [facility] Interrogation LAB SYSTEM Session Clinic Name ECG Event - [facility] LAB SYSTEM Jet Implantable Implantable FOUNDATION Pulse Generator Diagnostic LAB SYSTEM Type Monitor Implantable [id number] FOUNDATION Pulse Generator LAB SYSTEM Implant Date Anatomical Region Laterality Modality Other Specimen (Source) Anatomical Collection Method Collection Time Re ceived Time Location / / Volume Laterality 12/02/2019 3:37 PM CDT Narrative 12/04/2019 12:44 PM CDT *PURPOSE OF ENCOUNTER: * Summary transmission is received 12/02/2019 from [employer] implantable loop recorder. *PRESENTING ECG: * Sinus rhythm with an approximate heart rate of 75 BPM. No ectopy was noted. *BATTERY STATUS: *Okay. *EPISODES: * Since 10/31/2019 device rep orts episodes: No new alert observations were recorded by the device . *PATIENT ACTIVITY LEVEL: * Activity leve l ranges from 2-4 hours per day. *HISTOGRAMS: * Show normal distribution with majority of heart rates between 50-90 bpm. ?? *INTERPRETING TECH: * GAURAV Wheat- CCT Vic Mac M.D. CV IMPLANTABLE CARDIAC DEVIC E documented in this encounter Visit Diagnoses Diagnosis Palpitations documented in this encounter
--- OUTSIDE RECORDS SUMMARY | 2022-03-30 16:00 | XMS_ITS | Encounter Summary ---
:1950 Author Organization [facility] Address [address] [place] [address] Care Team Providers Name Role Phone Unavailable Primary Care Provider Unavailable Encounter Details Date Type Department Care Team Description 10/01/2019 Hospital Encounter Department of Pernell Weston Cardiovascular Diseases Marjan Driver in [facility] [address] [facility] [address] [place] [address] [phone] Social History Tobacco Use Types Packs/Day Years [...] Associated Diagnosis Comme nts LOOP RECORDER Routine 10/01/2019 3:41 PM Palpitations Results for this REMOTE FOLLOW UP INDUSTRIAL ILLUMINATING ENGINEER procedure a re in the results section. documented in this encounter Results LOOP RECORDER REMOTE FOLLOW UP (10/01/2019 3:41 PM INDUSTRIAL ILLUMINATING ENGINEER) Component Value Ref Test Analysis Performed At [facility] gist Range Method Time Signature Date Time [id number] [facility] Interrogation +0000 LAB SYSTEM Session Implantable [employer] FOUNDATION Pulse Generator LAB SYSTEM Press Cleaner Implantable LNQ11 Reveal FOUNDATION Pulse Generator LINQ LAB SYSTEM Model Implantable [id number] FOUNDATION Pulse Generator LAB SYSTEM Serial Number Type Remote [facility] Interrogation LAB SYSTEM Session Clinic Name ECG Event - [facility] LAB SYSTEM [place] Implantable Implantable FOUNDATION Pulse Generator Diagnostic LAB SYSTEM Type Monitor Implantable [id number] FOUNDATION Pulse Generator LAB SYSTEM Implant Date Anatomical Region Laterality Modality Other Specimen (Source) Anatomical Collection Method Collection Time Re ceived Time Location / / Volume Laterality 09/29/2019 11:40 AM INDUSTRIAL ILLUMINATING ENGINEER Narrative 10/02/2019 12:36 PM INDUSTRIAL ILLUMINATING ENGINEER *PURPOSE OF ENCOUNTER: * Summary transmission is received 09/29/2019 from [employer] implantable loop recorder. *PRESENTING ECG: * Sinus rhythm with an approximate heart rate of 75 BPM. No ectopy was noted. *BATTERY STATUS: *Okay. *EPISODES: * Since 08/28/2019 device rep orts episodes: No new alert observations were recorded by the device . *PATIENT ACTIVITY LEVEL: * Activity leve l ranges from 2-4 hours per day. *HISTOGRAMS: * Show normal distribution with majority of heart rates between 50-100 bpm. ?? *INTERPRETING TECH: * GAURAV Wheat- CCT Pernell Weston M.D. CV IMPLANTABLE CARDIAC DEVIC E documented in this encounter Visit Diagnoses Diagnosis Palpitations documented in this encounter
--- OUTSIDE RECORDS SUMMARY | 2022-03-30 16:00 | XMS_ITS | Encounter Summary ---
:1950 Author Organization [facility] Address [address] [place] [address] Care Team Providers Name Role Phone Elsewhere, Pcp Primary Care Provider Unavailable Reason for Referral Physical Therapy (Routine) - Authorized Specialty Diagnoses / Procedures Referred By Contact Refer red To Contact Diagnoses Overactive Bladder Urgency Urinary Symptom Urinary Urinary Urge Incontinence Ad Juarez M.D. [address] [place] [address] Referral ID Status Reason Start Expiration Visits Visits Date Date Requested Authorized [id number] Authorized Patient 05/12/2021 05/12/2022 99 99 Preference Outpatient (Routine) - Closed Specialty Diagnoses / Procedures Referred By Contact Refer red To Contact Diagnoses Overactive Bladder Urgency Urinary Symptom Urinary Urinary Urge Incontinence Cystocele Ad Juarez M.D. [facility] Procedures UROGYN Cystoscopy [address] [place] [address] Referral ID Status Reason Start Date Expiration Date Visits Requ ested Visits Authorized [id number] Closed 05/12/2021 05/12/2022 1 1 Reason for Visit Outpatient (Routine) - Closed Specialty Diagnoses / Procedures Referred By Contact Refer red To Contact Obstetrics and Diagnoses Incontinence Urinary Stress And Urge Rectocele Bud Orosco [facility] Gynecology Marjan Schmitt [address] [place] [address] Referral ID Status Reason Start Date Expiration Date Visits Requ ested Visits Authorized [id number] Closed 03/24/2021 03/24/2022 1 1 Encounter Details Date Type Department Care Team Description 05/12/2021 Comprehensive Visit Department of Stefanie Juarez Bladder (Primary Dx); Obstetrics and Ad Calvo M.D. Urgency Urinary; Gynecology, Division [address] [facility] Symptom Urinary; of Urogynecology in [place], [place] Urinary Urge Incontinence; [place], [place] [address] Cystocele [address] [facility] [phone] [place], [place] (Work) [address] [phone] Social History Tobacco Use Types Packs/Day Years Used Date Smoking Tobacco: Never Smokeless Tobacco: Never Sex Assigned at Date Recorded Not on file documented as of this encounter Consult Notes Ad Juarez M.D. - 05/12/2021 10:00 AM CDT SUBJECTIVE REFERRING PROVIDER Bud Orosco Jr., M.D. REASON FOR VISIT Consult HISTORY OF PRESENT CONDITION Ms. Thorne is a 70 y.o. presenting for evaluation of urinary urgency and prolapse as a referral from Dr. Orosco. She states that she has significant urinary urgency and frequency voiding about every hour while awake in getting up 2-3 times in the evening. Overall she does not have any urgency incontinence. She does have significant behavior modification as there was a bathroom always available as she works from home and she is frequently using the bathroom. She has to remove soft drinks and coffee from her diet as this worsened her symptoms and made her feel like she had a urinary tract infection. In fact she was evaluated locally and given antibiotics. She describes a discomfort in the bladder that is only relieved with urination. She can not tell if she has stress incontinence. She does have a pad that she place and may be soiled by the end of the day. This is not as bothersome to the patient. Review of her diary showed that she has nocturia x3 or 4. She is voiding multiple times during the day typically around 2-3 oz. Her largest volume voided was 5 oz in the 48 hour period. As it pertains to her prolapse she denies seen or feeling tissue at the vaginal opening, feeling of incomplete bladder emptying, pressure and discomfort as the day goes on, or needing to splint or digitate to have a bowel movement. Intimacy is not painful or uncomfortable. PMH: Hypertension, hypercholesterolaemia, recent diagnosis of aortic valve stenosis PSH: Bilateral tubal ligation SH: Nonsmoker HISTORY REVIEW The following portions of the patient's history were reviewed and updated as appropriate: allergies,current medications, family history, medical history, social history, surgical history and problem list. OBJECTIVE VITAL SIGNS There were no vitals filed for this visit. PHYSICAL EXAM Constitutional: She is oriented to person place and time. She appears well nourished and well developed. Eyes: No scleral icterus. Pulmonary/chest: Effort normal. No accessory muscle usage. No respiratory distress. Neurological: She is alert and oriented to person place and time. Skin: no pallor. Psychiatric: She has normal mood and affect. Abdomen: Obese soft and nontender with no palpable organomegaly. Genitourinary: Normal appearing external genitalia. Vulva and vagina atrophic. Pelvic exam reveals no pelvic floor muscle spasticity. Kegels week. Cough Stress test positive. Uterus and Cervix grossly normal C well-supported Aa -2 Ap 0 Rectovaginal exam deferred. Mrs. Lackey was present for the exam. LABORATORY: Cystourethroscopy unremarkable Urodynamics revealed abnormal bladder capacity with sensory urgency at only 200 mL. Normal variant uroflow pattern. She voided 193 with a residual of 9. She had a stable detrusor during filling and urodynamic stress urinary incontinence. ASSESSMENT / PLAN #1 Overactive bladder syndrome #2 Class 3 obesity (BMI 45) #3 Newly diagnosed aortic valve stenosis (per patient is scheduled to undergo surgery) #4 Pelvic organ prolapse Regarding her urgency incontinence, we did review pathophysiology and treatment options for urgency incontinence. Discussed reasonable fluid consumption and bladder irritants. Our overactive bladder package has been given and a referral has been made [to physical therapy to optimize urge suppression] and [to our advanced practice providers to begin electrical stimulation therapy] to address her symptoms. In addition, a prescription of Detrol 4 mg daily has been prescribed. Side effects and expectations reviewed. I also reviewed 3rd line interventions that we may utilize if needed. We will contact the patient in 8 weeks to assess her progress. Regarding her pelvic organ prolapse at this time she is asymptomatic. Reviewed natural history and symptoms that she may develop should her prolapse worsen. Reviewed potential treatment options. At this time the patient wants to focus on her newly diagnosed cardiac issue. She is encouraged to contact us once this is addressed or if we need to trouble shoot her overactive bladder medications. Ad Juarez M.D. documented in this encounter Miscellaneous Notes Addendum Note - Yanci Lackey R.N. - 05/12/2021 10:00 AM CDT Addended by: YANCI LACKEY on: 05/13/2021 08:45 AM Modules accepted: Orders documented in this encounter Plan of Treatment Not on filedocumented as of this encounter Results DC CYSTOURETHROSCOPY (05/12/2021 11:29 AM CDT) Narrative MMODAL [...] fellow participated in the procedure, and the client experience consultant was present for the entire procedure. Ad Juarez M.D. OB GYNE ORDERABLES Performing Organization Address City/State/ZIP Code Phon e Number MMODAL MMODAL NA documented in this encounter Visit Diagnoses Diagnosis Overactive Bladder - Primary Urgency Urinary Symptom Urinary Urinary Urge Incontinence Cystocele Overactive Bladder Urgency Urinary Symptom Urinary Urinary Urge Incontinence Cystocele documented in this encounter Care Teams Warehouse Pricing And Inventory Clerk Relationship Specialty Start Date End Date Elsewhere, Pcp PCP - General Family Medicine 05/08/21 documented as of this encounter
--- OUTSIDE RECORDS SUMMARY | 2022-03-30 16:00 | XMS_ITS | Encounter Summary ---
:1950 Author Organization [facility] Address [address] [place] [address] Care Team Providers Name Role Phone Unavailable Primary Care Provider Unavailable Reason for Visit Reason Comments Appointment Encounter Details Date Type Department Care Team Description 03/05/2021 Clinical Communication Department [facility] Appoint[facility] Medicine, [facility], in [place], [place] [address] [place] [address] [facility] [phone] Social History Tobacco Use Types Packs/Day Years Used Date Smoking Tobacco: Never Smokeless Tobacco: Never Sex Assigned at Date Recorded Not on file documented as of this encounter Miscellaneous Notes Telephone Encounter - Kimberley Buck, RPeytonN. - 03/05/2021 9:09 AM CDT CHIEF COMPLAINT / REASON FOR CALL Appointment Information Discussed Patient called with concerns of needing to hold her bladder for 1 hour after drinking 32 ounces of water prior to her pelvic US scheduled on 03/19. She stated that she has been keeping track with a bladder diary and she needs to urinate every hour or less, even after drinking 2-8 ounces of water. She wanted to know if there were any alternatives for the prep. She will also be sending in her bladder diary for review via the portal. PLAN Per radiology department, she was advised to do the best she can in following the instructions for drinking 32 ounces 1 hour before the US. She was advised to stay well hydrated throughout the day. Shemay also drink 8 ounces 30 mins prior to US. Disposition/Recommendation: recommended continue engagement in self-management activities Information/Education: patient/caller able to teach back Caller agreeable to plan of care: yes The following references were used: harmony Martinez, lead pharmacy technician Telephone Encounter - Rylee Walls - 03/05/2021 8:38 AM CDT Reason for Communication: Patient is calling in she stated she's going every hour sometimes less with drinking a couple ounces at a time. Patient also states the max she drinks is 8 oz and she's not sure how long she can hold this with a full bladder for the test. She also stated she would like to email something to Dr. Orosco. Please call the patient back. Current Can Nursing/Provider leave a detailed message?: yes Did the patient refuse triage through Nurse line? (for symptom based concerns): n/a Action Needed: Please call the patient back. Name of Medication (if relevant): n/a Please send any replies to scheduling pool to ensure timely response. documented in this encounter Plan of Treatment Not on filedocumented as of this encounter Visit Diagnoses Not on filedocumented in this encounter
--- OUTSIDE RECORDS SUMMARY | 2022-03-30 16:00 | XMS_ITS | Continuity of Care Document ---
:1950 Author Organization [facility] Address [address] [address] [place] [address] Care Team Providers Name Role Phone [place], [place] Unavailable Unavailable Procedures Procedure Date Colono Advance Directives Directive Yes / No Effective Date File Name No Information Encounters Encounter Practice Location Reason(s) Diagnoses Date Provider Provide rs Description For Visit Copied on Encounter [facility] No Endoscopy Referring Endoscopy Endoscopy Information -2014 Center Provider : Center [facility], [facility]. [address] [place] [address], [address], [address] [place], [place], [place], [place], [facility], [id number], [id number], [place], [place], tel:[phone]. [id number] tel:[phone] Family History Family Member Type Diagnosis Age At Onset No Information Payers Payer name Insurance type Covered democrat ID Authorization(s ) No Information Social History Type Description Quantity Date Captured Comments Sex Female Smoking Status No Information Chief Complaint And Reason For Visit No Information Reason For Referral Reason For Referral No Information Plan Of Treatment Date Type Action Status No Information History Of Present Illness Encounter Date Complaint History Of Present I llness No Information Functional Status Date Functional Assessment No Information Instructions Date Instruction Additional Informati on No Information Assessments Type Assessment Date No Information Patient Care Teams Name Effective Dates (start - stop) Status M embers No Information
--- OUTSIDE RECORDS SUMMARY | 2022-03-30 16:00 | XMS_ITS | Encounter Summary ---
:1950 Author Organization [facility] Address [address] [place] [address] Care Team Providers Name Role Phone Unavailable Primary Care Provider Unavailable Encounter Details Date Type Department Care Team Description 04/10/2020 Hospital Encounter Department of Cale Douglas Cardiovascular Diseases Flex Driver, Ch.B., in [facility] Ph.D. [address] [facility] [address] [place] [phone] (Wo rk) Social History Tobacco Use Types [...] Associated Diagnosis Comme nts LOOP RECORDER Routine 04/10/2020 8:28 AM Palpitations Results for this REMOTE FOLLOW UP CDT procedure a re in the results section. documented in this encounter Results LOOP RECORDER REMOTE FOLLOW UP (04/10/2020 8:28 AM CDT) Component Value Ref Test Analysis Performed At [facility] gist Range Method Time Signature Date Time [id number] [facility] Interrogation +0000 LAB SYSTEM Session Implantable [employer] Pulse Generator LAB SYSTEM Insurance Claim Approver Implantable LNQ11 Reveal [facility] Pulse Generator LINQ LAB SYSTEM Model Implantable [id number] [facility] Pulse Generator LAB SYSTEM Serial Number Type Remote [facility] Interrogation LAB SYSTEM Session Clinic Name ECG Event - [facility] LAB SYSTEM [place] Implantable Implantable FOUNDATION Pulse Generator Diagnostic LAB SYSTEM Type Monitor Implantable [id number] [facility] Pulse Generator LAB SYSTEM Implant Date Anatomical Region Laterality Modality Other Specimen (Source) Anatomical Collection Method Collection Time Re ceived Time Location / / Volume Laterality 04/10/2020 6:09 AM CDT Narrative 04/14/2020 2:59 PM CDT *PURPOSE OF ENCOUNTER: * Summary transmission is received from Medtronic implantable loop recorder. *PRESENTING ECG: * Event shown is consis tent with sinus rhythm, rate approximately 68 BPM. No ectopy was note d. 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 *EPISODES: * Since 09-Mar-2020 device re ports episodes: No new alert observations were recorded by the device . *HISTOGRAMS: * Show normal distribution with majority of heart rates between 50-80 bpm. ?? *PATIENT ACTIVITY LEVEL: * Activity leve l ranges from 2-4 hours per day. *INTERPRETING TECH: * MICHAEL Fonseca AT Cale Mccord, Ch.B., Ph.D. CV IMPLANTABLE CARDIAC DEVICE documented in this encounter Visit Diagnoses Diagnosis Palpitations documented in this encounter
--- OUTSIDE RECORDS SUMMARY | 2022-03-30 16:00 | XMS_ITS | Encounter Summary ---
:1950 Author Organization [facility] Address [address] [place] [address] Care Team Providers Name Role Phone Unavailable Primary Care Provider Unavailable Reason for Referral Outpatient (Routine) - Closed Specialty Diagnoses / Procedures Referred By Contact Refer red To Contact Obstetrics and Diagnoses Incontinence Urinary Stress And Urge Rectocele Bud Orosco [facility] Alycia Schmitt M.D. [address] [place] [phone] Referral ID Status Reason Start Date Expiration Date Visits Requ ested Visits Authorized [id number] Closed 03/24/2021 03/24/2022 1 1 Reason for Visit Reason Comments Follow-up Outpatient (Routine) - Closed Specialty Diagnoses / Procedures Referred By Contact Refer red To Contact Obstetrics and Diagnoses Incontinence Urinary Stress Female Bud Orosco [facility] Alycia Schmitt M.D. [address] [place] [phone] Referral ID Status Reason Start Date Expiration Date Visits Requ ested Visits Authorized [id number] Closed 02/17/2021 02/17/2022 1 1 Encounter Details Date Type Department Care Team Description 03/24/2021 Office Visit Department of Bud Orosco Rectocele (Primary Dx); Obstetrics and Marjan Schmitt Incontinence Urinary Stress And Urge Gynecology in [address] [place] [address] [place] [address] [facility] [address] [place] [phone] (Work) [phone] Social History Tobacco Use Types Packs/Day Years [...] 15.2 oz) 03/24/2021 10:03 AM CDT Height - - Body Mass Index 45.69 02/27/2018 7:53 AM CDT documented in this encounter Progress Notes Bud Orosco Jr., M.D. - 03/24/2021 10:30 AM CDT SUBJECTIVE CHIEF COMPLAINT/REASON FOR VISIT Follow up urinary incontinence. HISTORY OF PRESENT ILLNESS Dinah Thorne is a 70 y.o. female who presents to the clinic for follow up urinary incontinence. When I saw her last, I had her start with Vagifem. She was taking it as prescribed and one night she woke up with vertigo. She lied in bed for about 2 hours until it improved. She subsequently stopped the Vagifem. She did complete a bladder diary and she did urinate frequently. She did urinate on average 4-8 ounces, but did also have some of 2 ounces. She does have some urge component. She did have a pelvic ultrasound on 03/19/21, which showed a normal endometrium at 6 mm and uterus was normal. She was discussing with her PCP that during her walks, after about 20 minutes, she develops some pelvic pain and pressure. She is wondering if losing some weight will help with that. There are no further concerns at this [...] by mouth daily. 2 Tablespoons daily ??? colesevelam (WELCHOL) 625 mg tablet Take 3 tablets by mouth 2 (two) times a day. ??? estradioL (VAGIFEM) 10 mcg vaginal tablet Insert 1 tablet (10 mcg) into vagina at bedtime for two weeks then at bedtime twice a week. (Patient not taking: Reported on 03/24/2021 ) 18 tablet 3 ??? levothyroxine (SYNTHROID, LEVOTHROID) 75 mcg tablet Take 1 tablet by mouth daily. 75mcg ??? LYCOPENE ORAL Take 1 capsule by mouth daily. ??? multivitamin tablet Take 2 tablets by mouth daily. No current facility-administered medications for this visit. ALLERGIES/CONTRAINDICATIONS Allergies Allergen Reactions ??? Niacin Other (see comments) Flushing? MEDICAL HISTORY Past Medical History: Diagnosis Date ??? Hypercholesterolemia Familial 10/26/2016 ??? Hyperlipidemia 10/25/2016 ??? Hypertension Essential Primary 02/27/2018 ??? Incontinence Urinary Stress And Urge 02/17/2021 Bladder diary reviewed. Discussed bladder training and she should start with a goal of 1 hour and gradually increased to 2-1/2 to 3 hours. She has a mild to moderate cystocele and rectocele. Discussedcontinuing with Vagifem and discussed the benefits for this prior to surgery. Discussed it would be unusual for this to cause her vertigo. We will have her meet with UroGyn in [place] to discuss ??? Morbid Obesity Body Mass Index Greater Than Or Equal To 40 Adult (HCC) 10/25/2016 ??? Stenosis Aortic Valve Acquired 02/27/2018 ??? Stenosis Carotid Artery 10/25/2016 SURGICAL HISTORY Past Surgical History: Procedure Laterality Date ??? IMPLANTATION ICP MONITOR Left 10/26/2016 >Loop recorder implant -- LINQ. ??? TUBAL LIGATION SOCIAL HISTORY Social History Substance and Sexual Activity Drug Use Not on file Social History Substance and Sexual Activity Alcohol Use None FAMILY HISTORY No family history on file. OBJECTIVE VITAL SIGNS BP 138/72 Pulse 60 Resp 16 Wt 110 kg BMI 45.69 kg/m?? PHYSICAL EXAMINATION General: Patient appears well groomed and well nourished. No acute distress. Oriented times three. ASSESSMENT / PLAN #1 Incontinence Urinary Stress And Urge Overview: Bladder diary reviewed. Discussed bladder training and she should start with a goal of 1 hour and gradually increased to 2-1/2 to 3 hours. She has a mild to moderate cystocele and rectocele. Discussed continuing with Vagifem and discussed the benefits for this prior to surgery. Discussed it would be unusual for this to cause her vertigo. We will have her meet with UroGyn in [place] to discuss potential surgery. Orders: - Obstetrics and Gynecology office visit (clinic) #2 Followup PLAN: Patient will contact the clinic with questions or concerns prior to this time. This document serves as a record of services personally performed by Bud Orosco MD. It was created on their behalf by Ivette Suazo, a trained medical territory manager. The creation of this record is based onthe scribe's personal observations and the provider's statements to them. This document has been [facility] ked and approved by the attending provider. documented in this encounter Plan of Treatment Scheduled Referrals Name Type Priority Associated Diagnoses Order S chedulaurie Obstetrics and Outpatient Routine Incontinence Urinary Expec edgar: Gynecology - Referral Stress And Urge 04/24/2021 Urogynecology consult Rectocele (Appro ximate), (clinic) Expires: 03/24/2024 documented as of this encounter Visit Diagnoses Diagnosis Rectocele - Primary Incontinence Urinary Stress And Urge documented in this encounter
--- OUTSIDE RECORDS SUMMARY | 2022-03-30 16:00 | XMS_ITS | Encounter Summary ---
:1950 Author Organization [facility] Address [address] [place] [address] Care Team Providers Name Role Phone Unavailable Primary Care Provider Unavailable Encounter Details Date Type Department Care Team Description 01/04/2020 Hospital Encounter Department of Emmanuel Mclaughlin lpitations Cardiovascular Diseases Flex DriverB PeytonS. in [facility] [address] [facility] [address] [place] [phone] Social History Tobacco Use Types Packs/Day Years [...] Associated Diagnosis Comme nts LOOP RECORDER Routine 01/04/2020 3:52 PM Palpitations Results for this REMOTE FOLLOW UP CDT procedure a re in the results section. documented in this encounter Results LOOP RECORDER REMOTE FOLLOW UP (01/04/2020 3:52 PM CDT) Component Value Ref Test Analysis Performed At [facility] Range Method Time Signature Date Time [id number] [facility] Interrogation +0000 LAB SYSTEM Session Implantable [employer] FOUNDATION Pulse Generator LAB SYSTEM Nurse Orthopaedic Implantable LNQ11 Reveal FOUNDATION Pulse Generator LINQ LAB SYSTEM Model Implantable [id number] FOUNDATION Pulse Generator LAB SYSTEM Serial Number Type Remote FOUND[facility] Interrogation LAB SYSTEM Session Clinic Name ECG Event - [facility] LAB SYSTEM [place] Implantable Implantable FOUNDATION Pulse Generator Diagnostic LAB SYSTEM Type Monitor Implantable [id number] [facility]OUNDATION Pulse Generator LAB SYSTEM Implant Date Anatomical Region Laterality Modality Other Specimen (Source) Anatomical Collection Method Collection Time Re ceived Time Location / / Volume Laterality 01/03/2020 5:40 PM CDT Narrative 01/08/2020 9:44 AM CDT *PURPOSE OF ENCOUNTER: * Summary transmission is received from [employer]onic implantable loop recorder. *PRESENTING ECG: * Sinus rhythm, rate 71 BPM. No ectopy was noted. *BATTERY STATUS: *Okay. *EPISODES: * Since 02-DEC-2019 device re ports episodes: No new alert observations were recorded by the device . *HISTOGRAMS: * Show normal distribution with majority of heart rates between 50-90 bpm. ?? *PATIENT ACTIVITY LEVEL: * Activity leve l ranges from 2-4 hours per day. *INTERPRETING TECH: * MICHAEL Fonseca AT Emmanuel Romero CV IMPLANTABLE CARDIAC DE VICE documented in this encounter Visit Diagnoses Diagnosis Palpitations documented in this encounter
--- OUTSIDE RECORDS SUMMARY | 2022-03-30 16:01 | XMS_ITS | Encounter Summary ---
:1950 Author Organization [facility] Address [address] [place] [address] Care Team Providers Name Role Phone Unavailable Primary Care Provider Unavailable Encounter Details Date Type Department Care Team Description 09/13/2018 Hospital Encounter Department of Mariaa Lopez Pa lpitations Cardiovascular Diseases Marjan, M. B.A. in [facility] [address] [place] [address] [place] [address] [phone] Social History Tobacco Use Types Packs/Day Years [...] Associated Diagnosis Comme nts LOOP RECORDER Routine 09/13/2018 11:54 Palpitations Results fo r this REMOTE FOLLOW UP AM BROOM MAKER procedure a re in the results section. documented in this encounter Results LOOP RECORDER REMOTE FOLLOW UP (09/13/2018 11:54 AM BROOM MAKER) Component Value Ref Test Analysis Performed At [facility] Range Method Time Signature Date Time [id number] FOUNDATION Interrogation +0000 LAB SYSTEM Session Implantable Medtronic FOUNDATION Pulse Generator LAB SYSTEM Emission Technician Implantable LNQ11 Reveal FOUNDATION Pulse Generator LINQ LAB SYSTEM Model Implantable [id number] FOUNDATION Pulse Generator LAB SYSTEM Serial Number Type Remote FOUNDATION Interrogation LAB SYSTEM Session Clinic Name ECG Event - [facility] LAB SYSTEM [place] Implantable Implantable FOUNDATION Pulse Generator Diagnostic LAB SYSTEM Type Monitor Implantable [id number] FOUNDATION Pulse Generator LAB SYSTEM Implant Date Anatomical Region Laterality Modality Other Specimen (Source) Anatomical Collection Method Collection Time Re ceived Time Location / / Volume Laterality 09/09/2018 4:22 AM BROOM MAKER Narrative 09/19/2018 12:35 PM BROOM MAKER *PURPOSE OF ENCOUNTER: * Summary transmission is received from Medtronic implantable loop recorder. *PRESENTING ECG: * Sinus rhythm, rate 75 BPM. *BATTERY STATUS: *Okay. *EPISODES: * Since 06-AUG-2018 device re ports episodes: No new alert observations were recorded by the device . *PATIENT ACTIVITY LEVEL: * Activity leve l ranges from 2-4 hours per day. *HISTOGRAMS: * Show normal distribution with majority of heart rates between 50-90 bpm. ?? *INTERPRETING TECH: * GAURAV Domínguez Mariaa Lopez M.D., M.B.A. CV IMPLANTABLE CARDIAC D EVICE documented in this encounter Visit Diagnoses Diagnosis Palpitations documented in this encounter
--- OUTSIDE RECORDS SUMMARY | 2022-03-30 16:01 | XMS_ITS | Encounter Summary ---
:1950 Author Organization [facility] Address [address] [place] [address] Care Team Providers Name Role Phone Unavailable Primary Care Provider Unavailable Encounter Details Date Type Department Care Team Description 05/02/2018 Hospital Encounter Department of Yesi, Lloyd Allison atflaco Cardiovascular Diseases in .[place], [place] [address] [facility] [address] [place] [id number] [phone] Social History Tobacco Use Types Packs/Day Years [...] Associated Diagnosis Comme nts LOOP RECORDER Routine 05/02/2018 1:59 PM Palpitations Results for this REMOTE FOLLOW UP CDT procedure a re in the results section. documented in this encounter Results LOOP RECORDER REMOTE FOLLOW UP (05/02/2018 1:59 PM CDT) Component Value Ref Test Analysis Performed At [facility] Range Method Time Signature Date Time [id number] [facility] Interrogation +0000 LAB SYSTEM Session Implantable Med[employer]onic FOUNDATION Pulse Generator LAB SYSTEM Impact Hammer Operator Implantable LNQ11 Reveal FOUNDATION Pulse Generator LINQ LAB SYSTEM Model Implantable [id number] FOUNDATION Pulse Generator LAB SYSTEM Serial Number Type Remote [facility] Interrogation LAB SYSTEM Session Clinic Name ECG Event - [facility] LAB SYSTEM [place] Implantable Implantable FOUNDATION Pulse Generator Diagnostic LAB SYSTEM Type Monitor Implantable [id number] FOUNDATION Pulse Generator LAB SYSTEM Implant Date Anatomical Region Laterality Modality Other Specimen (Source) Anatomical Collection Method Collection Time Re ceived Time Location / / Volume Laterality 05/02/2018 6:40 AM CDT Narrative 05/05/2018 3:21 PM CDT *PURPOSE OF ENCOUNTER: * Summary transmission is received from Medtronic implantable loop recorder. *PRESENTING ECG: * Sinus rhythm at 62 bp m. No ectopy. *BATTERY STATUS: *Okay. *EPISODES: * Since 03/31/18 device report s no new episodes: No new alert observations were recorded by the device . *HISTOGRAMS: * Show normal distribution with majority of heart rates between 50-80 bpm. ?? *PATIENT ACTIVITY LEVEL: * Activity leve l ranges from 2-4 hours per day. *INTERPRETING TECH: * Lubna Brennan Keegan Key M.D. CV IMPLANTABLE CARDIAC DEVIC Anibal documented in this encounter Visit Diagnoses Diagnosis Palpitations documented in this encounter
--- OUTSIDE RECORDS SUMMARY | 2022-03-30 16:01 | XMS_ITS | Encounter Summary ---
:1950 Author Organization [facility] Address [address] [place] [address] Care Team Providers Name Role Phone Unavailable Primary Care Provider Unavailable Encounter Details Date Type Department Care Team Description 11/14/2018 Hospital Encounter Department of Mariaa Lopez Pa lpitations Cardiovascular Diseases Marjan, M. B.A. in [facility] [address] [place] [address] [place] [address] [phone] Social History Tobacco Use Types Packs/Day Years [...] Associated Diagnosis Comme nts LOOP RECORDER Routine 11/14/2018 2:00 PM Palpitations Results for this REMOTE FOLLOW UP CDT procedure a re in the results section. documented in this encounter Results LOOP RECORDER REMOTE FOLLOW UP (11/14/2018 2:00 PM CDT) Component Value Ref Test Analysis Performed At [facility] Range Method Time Signature Date Time [id number] [facility] Interrogation +0000 LAB SYSTEM Session Implantable Med[employer]onic FOUNDATION Pulse Generator LAB SYSTEM Dormitory Keeper Implantable LNQ11 Reveal FOUNDATION Pulse Generator LINQ LAB SYSTEM Model Implantable [id number] FOUNDATION Pulse Generator LAB SYSTEM Serial Number Type Remote FOUNDATION Interrogation LAB SYSTEM Session Clinic Name ECG Event - [facility] LAB SYSTEM [place] Implantable Implantable FOUNDATION Pulse Generator Diagnostic LAB SYSTEM Type Monitor Implantable [id number] FOUNDATION Pulse Generator LAB SYSTEM Implant Date Anatomical Region Laterality Modality Other Specimen (Source) Anatomical Collection Method Collection Time Re ceived Time Location / / Volume Laterality 11/13/2018 8:12 AM CDT Narrative 11/14/2018 2:08 PM CDT *PURPOSE OF ENCOUNTER: * Summary transmission is received from Medtronic implantable loop recorder. *PRESENTING ECG: * Sinus rhythm at 70 bp m. No ectopy was noted. *BATTERY STATUS: *Okay. *EPISODES: * Since 10/12/18: No new alert observations were recorded by the device. *HISTOGRAMS: * Show normal distribution with majority of heart rates between 50-100 bpm. ?? *PATIENT ACTIVITY LEVEL: * Activity leve l ranges from 2-3.5 hours per day. *INTERPRETING TECH: * MICHAEL Jean AT Mariaa Lopez M.D., M.B.A. CV IMPLANTABLE CARDIAC D EVICE documented in this encounter Visit Diagnoses Diagnosis Palpitations documented in this encounter
--- OUTSIDE RECORDS SUMMARY | 2022-03-30 16:01 | XMS_ITS | Encounter Summary ---
:1950 Author Organization [facility] Address [address] [place] [address] Care Team Providers Name Role Phone Unavailable Primary Care Provider Unavailable Encounter Details Date Type Department Care Team Description 11/10/2016 Hospital Encounter HX NO MAPPING Social History Tobacco Use Types Packs/Day Years Used Date Smoking Tobacco: Never Assessed Sex Assigned at Date Recorded Not on file documented as of this encounter Medications at Time of Discharge Medication Sig Dispensed Refills Start Date End Date atenolol (TENORMIN) 50 mg Take 1 tablet by 0 0 01/2017 tablet mouth daily. levothyroxine (SYNTHROID, Take 1 tablet by 0 0 01/2017 LEVOTHROID) 75 mcg tablet mouth daily. multivitamin tablet Take 2 tablets by 0 7 mouth daily. atorvastatin (LIPITOR) 80 Take 1 tablet by 0 03/0 01/201705/08/2021 mg tablet mouth daily. documented as of this encounter Plan of Treatment Not on filedocumented as of this encounter Visit Diagnoses Not on filedocumented in this encounter
--- OUTSIDE RECORDS SUMMARY | 2022-03-30 16:01 | XMS_ITS | Encounter Summary ---
:1950 Author Organization [facility] Address [address] [place] [address] Care Team Providers Name Role Phone Unavailable Primary Care Provider Unavailable Encounter Details Date Type Department Care Team Description 12/15/2018 Hospital Encounter Department of Mariaa Lopez Pa lpitations Cardiovascular Diseases Marjan, M. B.A. in [facility] [address] [place] [address] [place] [address] [phone] Social History Tobacco Use Types Packs/Day Years [...] Associated Diagnosis Comme nts LOOP RECORDER Routine 12/15/2018 10:33 Palpitations Results fo r this REMOTE FOLLOW UP AM CDT procedure a re in the results section. documented in this encounter Results LOOP RECORDER REMOTE FOLLOW UP (12/15/2018 10:33 AM CDT) Component Value Ref Test Analysis Performed At [facility] Range Method Time Signature Date Time [id number] [facility] Interrogation +0000 LAB SYSTEM Session Implantable Medtronic FOUNDATION Pulse Generator LAB SYSTEM Pellet Machine Operator Implantable LNQ11 Reveal FOUNDATION Pulse Generator LINQ LAB SYSTEM Model Implantable [id number] FOUNDATION Pulse Generator LAB SYSTEM Serial Number Type Remote FOUNDATION Interrogation LAB SYSTEM Session Clinic Name ECG Event - [facility] LAB SYSTEM [place] Implantable Implantable FOUNDATION Pulse Generator Diagnostic LAB SYSTEM Type Monitor Implantable [id number] FOUNDATION Pulse Generator LAB SYSTEM Implant Date Anatomical Region Laterality Modality Other Specimen (Source) Anatomical Collection Method Collection Time Re ceived Time Location / / Volume Laterality 12/15/2018 8:09 AM CDT Narrative 12/22/2018 5:58 PM CDT *PURPOSE OF ENCOUNTER: * Summary transmission is received 12/15/2018 from Medtronic implantable loop recorder. *PRESENTING ECG: * Sinus rhythm with an approximate heart rate of 75 BPM. No ectopy was noted. *BATTERY STATUS: *Okay. *EPISODES: * Since 11/13/2018 device rep orts episodes: No new alert observations were recorded by the device . *PATIENT ACTIVITY LEVEL: * Activity leve l ranges from 2-5 hours per day. *HISTOGRAMS: * Show normal distribution with majority of heart rates between 50-100 bpm. ?? *INTERPRETING TECH: * GAURAV [place]- CCT Mariaa Lopez M.D., M.B.A. CV IMPLANTABLE CARDIAC D EVICE documented in this encounter Visit Diagnoses Diagnosis Palpitations documented in this encounter
--- OUTSIDE RECORDS SUMMARY | 2022-03-30 16:01 | XMS_ITS | Encounter Summary ---
:1950 Author Organization [facility] Address [address] [place] [address] Care Team Providers Name Role Phone Unavailable Primary Care Provider Unavailable Encounter Details Date Type Department Care Team Description 01/25/2018 Clinical Communication Department of [facility], Cardiovascular Medicine Marjan Tena in [facility] [address] [place] [address] Social History Tobacco Use Types Packs/Day Years Used Date Smoking Tobacco: Never Sex Assigned at Date Recorded Not on file documented as of this encounter Miscellaneous Notes Telephone Encounter - Natalia Jefferson - 01/25/2018 1:27 PM CDT Dinah Thorne [phone] Female, 67 y.o., 1950 PCP: None Language: Sammarinese Need Interp: No Last Weight: 113.2 kg Phone: H: [phone] W: [address] Natalia, There is no cornelius for the echo unless she has new dyspnea or shortness of breath that is sig. more than last year. Indication is aortic stenosis, not aortic dilatation. Please ask her to come for a visit with me in a regular established patient slot even it is another 1-2 months out. She also needs a carotid ultrasound. Indication is stenosis. And EKG. Thank you so much. Bk PS, can you allow me to answer your message in [employer]? That would be much easier to return to. Thank you! documented in this encounter Plan of Treatment Not on filedocumented as of this encounter Visit Diagnoses Not on filedocumented in this encounter
--- OUTSIDE RECORDS SUMMARY | 2022-03-30 16:01 | XMS_ITS | Encounter Summary ---
:1950 Author Organization [facility] Address [address] [place] [address] Care Team Providers Name Role Phone Unavailable Primary Care Provider Unavailable Reason for Visit Reason Comments Follow-up Appointment Request (Routine) - Closed Specialty Diagnoses / Procedures Referred By Contact Refer red To Contact Cardiovascular Disease Referral ID Status Reason Start Date Expiration Date Visits Requ ested Visits Authorized [id number] Closed 01/11/2018 07/10/2018 1 1 Encounter Details Date Type Department Care Team Description 02/27/2018 Office Visit Department of Ani, Stenosis Aorti c Valve Acquired (Primary Dx); Cardiovascular Medicine Marjan Tena Palp itations; in [facility] Hyperlipidemia; [address] [facility] [place] [address] Social History Tobacco Use Types Packs/Day Years Used Date Smoking Tobacco: Never Sex Assigned at Date Recorded Not on file documented as of this encounter Last Filed Vital Signs Vital Sign Reading Time Taken Comments Blood Pressure - - Pulse - - Temperature - - Respiratory Rate - - Oxygen Saturation - - Inhaled Oxygen Concentration - - Weight 113 kg (250 lb 3.6 oz) 02/27/2018 7:53 AM CDT Height 155.3 cm (5' 1.14) 02/27/2018 7:53 AM CDT Body Mass Index 47.06 02/27/2018 7:53 AM CDT documented in this encounter Progress Notes Korin Gonzáles R.N. - 02/27/2018 8:00 AM CDT SUBJECTIVE CHIEF COMPLAINT/REASON FOR VISIT Referred by: Dr. Law Chief Complaint/Reason for Consult: One year follow-up visit. 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 Law. Previous Cardiovascular History Moderate aortic stenosis noted on TTE October of 2016. Current Symptoms none Risk Factors for Cardiovascular Disease Age Hyperlipidemia- Currently taking Lipitor 80 mg daily. Last lipid profile was drawn at home on 07/25/17. Total cholesterol 232, triglycerides 94, HDL 54, LDL 159. Hypertension- Currently taking Atenolol 50 mg daily. Impaired fasting glucose- Last fasting blood sugar from 07/25/17 was 113. Was prescribed Welchol lastyear by Endocrinology but stopped taking 1 1/2 months ago due to severe constipation and bloating. Since she has stopped the Welchol her symptoms have improved. Obstructive sleep apnea- She had an abnormal overnight oximetry study last year and was recommended to follow up with a sleep study at home. She did not follow through with that, so recommended to do so in the near future. Family history- father of ND at 61; he was diabetic. One uncle of ND at 39, and her sisterhad a CVA in her 50's. Obesity- BMI 47. She has been exercising on the [employer] for 30 minutes 6-7 days per week. She is discouraged as she has not lost any weight. Our specialty food products supervisor will visit with her. I recommended seeing a facing baster jumpbasting either here or at home for guidance. ASSESSMENT / PLAN Per Dr. Law Please see provider note for assessment and plan. Patient Education - see full details in Education activity. documented in this encounter Consult Notes Mallika Law M.D. - 02/27/2018 8:00 AM CDT SUBJECTIVE Referring Provider: self/Dr Valderrama HISTORY OF PRESENT ILLNESS Ms. Dinah Thorne is a 67 y.o. female who is at [facility] for her mod.aortic stenosis I agree with the history and documentation as outlined by RN Korin Gonzáles. Patient never had a cardiovascular event and denies any cardiac symptoms. Risk factors include none, hypertension, gender, age, impaired fasting glucose, hypercholesterolemia, low HDL, questional family history of CAD, lifestyle is active. MEDICATIONS Current Medications: ??? amoxicillin (AMOXIL) 500 mg tablet, Take 4 tablets by mouth as directed. Take 4 tablets one timefor 1 dose 30 to 60 min prior to dental procedures. ??? aspirin [address] tablet, Take 81 mg by mouth daily. ??? atenolol (TENORMIN) 50 mg tablet, Take 1 tablet by mouth daily. ??? atorvastatin (LIPITOR) 80 mg tablet, Take 1 tablet by mouth daily. ??? coenzyme Q10 100 mg/mL liquid, Take by mouth daily. 2 Tablespoons daily ??? levothyroxine (SYNTHROID, LEVOTHROID) 75 mcg tablet, Take 1 tablet by mouth daily. 75mcg ??? LYCOPENE ORAL, Take 1 capsule by mouth daily. ??? multivitamin tablet, Take 2 tablets by mouth daily. ??? colesevelam (WELCHOL) 625 mg tablet, Take 3 tablets by mouth 2 (two) times a day. SUBSTANCE USE: Social History Substance Use Topics ??? Smoking status: Never Smoker ??? Smokeless tobacco: Not on file ??? Alcohol use Not on file REVIEW OF SYSTEMS A comprehensive review of systems was completed; pertinent abnormalities are included in the Historyof Present Illness. Otherwise all systems negative. PAST MEDICAL, SURGICAL, SOCIAL, AND FAMILY HISTORY The following portions of the patient's history were reviewed and updated as appropriate: allergies,current medications, family history, medical history, social history, surgical history and problem list. OBJECTIVE Ht 155.3 cm Wt 113.5 kg BMI 47.06 kg/m?? PHYSICAL EXAMINATION General: Oriented, alert. Well groomed. Psychiatric: Normal mood and affect. Oriented to person, place, and time. Eyes: No periorbital xanthelasma. Clear sclerae. ENT: No oral mucosal cyanosis or pallor. Heart: Regular rate and rhythm. 3/6 mid to late peaking systolic murmur, best heard at hte right upper sternal border, second heart sound preserved, softened. Vessels: No bruits. Lungs: Normal to auscultation and percussion. Abdomen: No hepatic enlargement. No masses or tenderness. Musculoskeletal: No clubbing or cyanosis of the digits. Extremities: No edema Skin: No stasis dermatitis or ulceration of the lower extremities. DIAGNOSTICS I have personally reviewed the patient's current laboratory, imaging, and other diagnostic studies and discussed these in detail with the patient. #1 Stenosis Aortic Valve Acquired #2 Palpitations #3 Hyperlipidemia #4 Hypertension Essential Primary Outside echo shows mean gradient 34 mmHg w/o any other changes. Carotid disease stable. No symptoms.She will return in a year. Discussed possibility of valve replacement. Risks and benefits were discussed in great detail. Detailed exercise recommedations were made. Endocarditis prophylaxis not recommended. She should follow- up in a sleep Center. It was a great pleasure seeing Ms. Dinah Thorne today. documented in this encounter Plan of Treatment Not on filedocumented as of this encounter Visit Diagnoses Diagnosis Stenosis Aortic Valve Acquired - Primary Palpitations Hyperlipidemia Hypertension Essential Primary documented in this encounter
--- OUTSIDE RECORDS SUMMARY | 2022-03-30 16:01 | XMS_ITS | Encounter Summary ---
:1950 Author Organization [facility] Address [address] [place] [address] Care Team Providers Name Role Phone Unavailable Primary Care Provider Unavailable Encounter Details Date Type Department Care Team Description 04/24/2019 Hospital Encounter Department of [place], Palpitat ions Cardiovascular Diseases Derian Driver M.D. in [facility] 200 [facility] [address] [place] [address] [phone] Social History Tobacco Use Types Packs/Day Years [...] colesevelam (WELCHOL) Take 3 tablets by 0 01/06/ 017 05/08/2021 625 mg tablet mouth 2 (two) times a day. LYCOPENE ORAL Take 1 capsule by 0 04/22 mouth daily. documented as of this encounter Plan of Treatment Not on filedocumented as of this encounter Procedures Procedure Name Priority Date/Time Associated Diagnosis Comme nts LOOP RECORDER Routine 04/24/2019 4:23 PM Palpitations Results for this REMOTE FOLLOW UP CDT procedure a re in the results section. documented in this encounter Results LOOP RECORDER REMOTE FOLLOW UP (04/24/2019 4:23 PM CDT) Component Value Ref Test Analysis Performed At [facility] Range Method Time Signature Date Time [id number] FOUNDATION Interrogation +0000 LAB SYSTEM Session Implantable [employer] FOUNDATION Pulse Generator LAB SYSTEM Electronics Worker Implantable LNQ11 Reveal FOUNDATION Pulse Generator LINQ LAB SYSTEM Model Implantable [id number] FOUNDATION Pulse Generator LAB SYSTEM Serial Number Type Remote FOUNDATION Interrogation LAB SYSTEM Session Clinic Name ECG Event - [facility] LAB SYSTEM [place] Implantable Implantable FOUNDATION Pulse Generator Diagnostic LAB SYSTEM Type Monitor Implantable [id number] FOUNDATION Pulse Generator LAB SYSTEM Implant Date Anatomical Region Laterality Modality Other Specimen (Source) Anatomical Collection Method Collection Time Re ceived Time Location / / Volume Laterality 04/22/2019 9:41 AM CDT Narrative 04/26/2019 10:25 AM CDT *PURPOSE OF ENCOUNTER: * Summary transmission is received from Medtronic implantable loop recorder. *PRESENTING ECG: * Sinus rhythm at 78 bp m. No ectopy was noted. *BATTERY STATUS: *Okay. *EPISODES: * Since 03/21/2019: No new marysol rt observations were recorded by the device. *HISTOGRAMS: * Show normal distribution with majority of heart rates between 50-100 bpm. ?? *PATIENT ACTIVITY LEVEL: * Activity leve l ranges from 2-4 hours per day. *INTERPRETING TECH: * MICHAEL Jean AT Derian Hammer M.D. CV IMPLANTABLE CARDIAC DEVIC Anibal documented in this encounter Visit Diagnoses Diagnosis Palpitations documented in this encounter
--- OUTSIDE RECORDS SUMMARY | 2022-03-30 16:01 | XMS_ITS | Encounter Summary ---
:1950 Author Organization [facility] Address [address] [place] [address] Care Team Providers Name Role Phone Unavailable Primary Care Provider Unavailable Reason for Visit Reason Onset Date Comments Pre-visit Testing Orders 01/11/2018 Patient called has an appointment scheduled 02/27/18. She was seen by her primary and had an echo. is worse. R equested echo images be sent. What would you like for testing? Encounter Details Date Type Department Care Team Description 01/11/2018 Clinical Department of Ani, Pre-visit Test ing Communication Cardiovascular Marjan Tena Orders ([facility] ent Medicine in [place], [place] has an [place] appointment [address] scheduled 02/27/18. [place], [place] [id number] primary and had an [phone] echo. is wor se. Requested echo images be sent. What would you like for testing?) Social History Tobacco Use Types Packs/Day Years Used Date Smoking Tobacco: Never Sex Assigned at Date Recorded Not on file documented as of this encounter Plan of Treatment Not on filedocumented as of this encounter Visit Diagnoses Not on filedocumented in this encounter
--- OUTSIDE RECORDS SUMMARY | 2022-03-30 16:01 | XMS_ITS | Encounter Summary ---
:1950 Author Organization [facility] Address [address] [place] [address] Care Team Providers Name Role Phone Unavailable Primary Care Provider Unavailable Encounter Details Date Type Department Care Team Description 12/27/2017 Hospital Encounter Department of Cale Douglas Cardiovascular Diseases Flex Driver, Ch.B., in [facility] Ph.D. [address] [facility] [address] [place] [phone] (Wo rk) Social History Tobacco Use Types Packs/Day Years Used Date Smoking Tobacco: Never Sex Assigned at Date Recorded Not on file documented as of this encounter Medications at Time of Discharge Medication Sig Dispensed Refills Start Date End Date atenolol (TENORMIN) 50 mg Take 1 tablet by 0 0 01/2017 tablet mouth daily. levothyroxine (SYNTHROID, Take 1 tablet by 0 03/0 01/2017 LEVOTHROID) 75 mcg tablet mouth daily. multivitamin tablet Take 2 tablets by 0 7 mouth daily. amoxicillin (AMOXIL) 500 Take 4 tablets by 0 05/0 10/201602/27/2018 mg tablet mouth as directed. Take 4 tablets one time for 1 dose 30 to 60 min prior to dental procedures. atorvastatin (LIPITOR) 80 Take 1 tablet by 0 03/0 01/201705/08/2021 mg tablet mouth daily. colesevelam (WELCHOL) 625 Take 3 tablets by 0 05/08/2021 mg tablet mouth 2 (two) times a day. documented as of this encounter Plan of Treatment Not on filedocumented as of this encounter Procedures Procedure Name Priority Date/Time Associated Diagnosis Comme nts LOOP RECORDER Routine 12/27/2017 11:28 Palpitations Results fo r this REMOTE FOLLOW UP AM CDT procedure a re in the results section. documented in this encounter Results LOOP RECORDER REMOTE FOLLOW UP (12/27/2017 11:28 AM CDT) Component Value Ref Test Analysis Performed At [facility] Range Method Time Signature Date Time [id number] [facility] Interrogation +0000 LAB SYSTEM Session Implantable MedWayConnected Pulse Generator LAB SYSTEM Oyster Buyer Implantable LNQ11 Reveal [facility] Pulse Generator LINQ LAB SYSTEM Model Implantable [id number] [facility] Pulse Generator LAB SYSTEM Serial Number Type Remote [facility] Interrogation LAB SYSTEM Session Clinic Name ECG Event - [facility] LAB SYSTEM Shelly Implantable Implantable FOUNDATION Pulse Generator Diagnostic LAB SYSTEM Type Monitor Implantable [id number] [facility] Pulse Generator LAB SYSTEM Implant Date Anatomical Region Laterality Modality Other Specimen (Source) Anatomical Collection Method Collection Time Re ceived Time Location / / Volume Laterality 12/26/2017 10:07 PM CDT Narrative 12/30/2017 11:52 AM CDT *PURPOSE OF ENCOUNTER: * Summary transmission is received from Medtronic implantable loop recorder. *PRESENTING ECG: * Sinus rhythm at 75 bp m. No ectopy was noted. *BATTERY STATUS: *Okay. *EPISODES: * Since 11-24-17 device reports episodes: No new alert observations were recorded by the device . *HISTOGRAMS: * Show normal distribution with majority of heart rates between 50-90 bpm. ?? *PATIENT ACTIVITY LEVEL: * Activity leve l ranges from 2-5 hours per day. Cale Mccord, Ch.B., Ph.D. CV IMPLANTABLE CARDIAC DEVICE documented in this encounter Visit Diagnoses Diagnosis Palpitations documented in this encounter
--- OUTSIDE RECORDS SUMMARY | 2022-03-30 16:01 | XMS_ITS | Encounter Summary ---
:1950 Author Organization [facility] Address [address] [place] [address] Care Team Providers Name Role Phone Unavailable Primary Care Provider Unavailable Encounter Details Date Type Department Care Team Description 07/27/2019 Hospital Encounter Department of Mariaa Lopez Pa lpitations Cardiovascular Diseases Marjan, M. B.A. in [facility] [address] [place] [address] [place] [address] [phone] Social History Tobacco Use Types Packs/Day Years [...] Associated Diagnosis Comme nts LOOP RECORDER Routine 07/27/2019 11:22 Palpitations Results fo r this REMOTE FOLLOW UP AM CROSSTIE INSPECTOR procedure a re in the results section. documented in this encounter Results LOOP RECORDER REMOTE FOLLOW UP (07/27/2019 11:22 AM CROSSTIE INSPECTOR) Component Value Ref Test Analysis Performed At [facility] Range Method Time Signature Date Time [id number] [facility] Interrogation +0000 LAB SYSTEM Session Implantable Medtronic [facility]ATION Pulse Generator LAB SYSTEM Auto Cleaner Implantable LNQ11 Reveal [facility]ATION Pulse Generator LINQ LAB SYSTEM Model Implantable [id number] [facility] Pulse Generator LAB SYSTEM Serial Number Type Remote [facility] Interrogation LAB SYSTEM Session Clinic Name ECG Event - [facility] LAB SYSTEM [place] Implantable Implantable FOUNDATION Pulse Generator Diagnostic LAB SYSTEM Type Monitor Implantable [id number] [facility] Pulse Generator LAB SYSTEM Implant Date Anatomical Region Laterality Modality Other Specimen (Source) Anatomical Collection Method Collection Time Re ceived Time Location / / Volume Laterality 07/27/2019 10:35 AM CROSSTIE INSPECTOR Narrative 08/02/2019 5:59 PM CROSSTIE INSPECTOR *PURPOSE OF ENCOUNTER: * Summary transmission is received from Medtronic implantable loop recorder. *PRESENTING ECG: * The event shown is co nsistent with sinus rhythm at 75 bpm. No ectopy was present. *BATTERY STATUS: *Okay. *EPISODES: * Since 06/25/2019 device repo rts episodes: No new alert observations were recorded by the device . *PATIENT ACTIVITY LEVEL: * Activity leve l ranges from 2.5-4 hours per day. *HISTOGRAMS: * Show normal distribution with majority of heart rates between 50-100 bpm. ?? *INTERPRETING TECH: * MICHAEL Wang AT Mariaa Lopez M.D., M.B.A. CV IMPLANTABLE CARDIAC D EVICE documented in this encounter Visit Diagnoses Diagnosis Palpitations documented in this encounter
--- OUTSIDE RECORDS SUMMARY | 2022-03-30 16:01 | XMS_ITS | Encounter Summary ---
:1950 Author Organization [facility] Address [address] [place] [address] Care Team Providers Name Role Phone Unavailable Primary Care Provider Unavailable Encounter Details Date Type Department Care Team Description 02/27/2018 Hospital Encounter Department of Pernell Weston Cardiovascular Diseases Marjan Driver in [facility] [address] [facility] [address] [place] [phone] [phone] Social History Tobacco Use Types Packs/Day Years [...] Associated Diagnosis Comme nts LOOP RECORDER Routine 02/27/2018 4:52 PM Palpitations Results for this REMOTE FOLLOW UP CDT procedure a re in the results section. documented in this encounter Results LOOP RECORDER REMOTE FOLLOW UP (02/27/2018 4:52 PM CDT) Component Value Ref Test Analysis Performed At [facility] gist Range Method Time Signature Date Time [id number] [facility] Interrogation +0000 LAB SYSTEM Session Implantable Medtronic FOUNDATION Pulse Generator LAB SYSTEM Sidewalk Inspector Implantable LNQ11 Reveal FOUNDATION Pulse Generator LINQ LAB SYSTEM Model Implantable [id number] [facility] Pulse Generator LAB SYSTEM Serial Number Type Remote [facility] Interrogation LAB SYSTEM Session Clinic Name ECG Event - [facility] LAB SYSTEM [place] Implantable Implantable FOUNDATION Pulse Generator Diagnostic LAB SYSTEM Type Monitor Implantable [id number] [facility] Pulse Generator LAB SYSTEM Implant Date Anatomical Region Laterality Modality Other Specimen (Source) Anatomical Collection Method Collection Time Re ceived Time Location / / Volume Laterality 02/26/2018 10:35 PM CDT Narrative 02/28/2018 12:09 PM CDT *PURPOSE OF ENCOUNTER: * Summary transmission is received from Medtronic implantable loop recorder. *PRESENTING ECG: * Sinus rhythm at 71 bp m. No ectopy present. *BATTERY STATUS: *Okay. *EPISODES: * Since 01/25/18 device reports no new alert observations were recorded by the device. *HISTOGRAMS: * Show normal distribution with majority of heart rates between 50-90 bpm. ?? *PATIENT ACTIVITY LEVEL: * Activity leve l ranges from 2-5 hours per day. *INTERPRETING TECH: * Lubna Brennan Pernell Weston M.D. CV IMPLANTABLE CARDIAC DEVIC E documented in this encounter Visit Diagnoses Diagnosis Palpitations documented in this encounter
--- OUTSIDE RECORDS SUMMARY | 2022-03-30 16:01 | XMS_ITS | Encounter Summary ---
:1950 Author Organization [facility] Address [address] [place] [address] Care Team Providers Name Role Phone Unavailable Primary Care Provider Unavailable Encounter Details Date Type Department Care Team Description 06/27/2019 Hospital Encounter Department of Alexis Ledezma, Palp itations Cardiovascular Diseases in M.D., [facility] [place], [place] [address] [facility] [address] [place] [phone] [phone] Social History Tobacco Use Types Packs/Day Years [...] Associated Diagnosis Comme nts LOOP RECORDER Routine 06/27/2019 1:23 PM Palpitations Results for this REMOTE FOLLOW UP METAL MOULDER'S ASSISTANT procedure a re in the results section. documented in this encounter Results LOOP RECORDER REMOTE FOLLOW UP (06/27/2019 1:23 PM METAL MOULDER'S ASSISTANT) Component Value Ref Test Analysis Performed At [facility] Range Method Time Signature Date Time [id number] [facility] Interrogation +0000 LAB SYSTEM Session Implantable Medtronic FOUNDATION Pulse Generator LAB SYSTEM Interior Wall Assembler Implantable LNQ11 Reveal [facility] Pulse Generator LINQ LAB SYSTEM Model Implantable [id number] [facility] Pulse Generator LAB SYSTEM Serial Number Type Remote [facility] Interrogation LAB SYSTEM Session Clinic Name ECG Event - [facility] LAB SYSTEM [place] Implantable Implantable FOUNDATION Pulse Generator Diagnostic LAB SYSTEM Type Monitor Implantable [id number] [facility] Pulse Generator LAB SYSTEM Implant Date Anatomical Region Laterality Modality Other Specimen (Source) Anatomical Collection Method Collection Time Re ceived Time Location / / Volume Laterality 06/25/2019 10:11 AM METAL MOULDER'S ASSISTANT Narrative 06/28/2019 3:20 PM METAL MOULDER'S ASSISTANT *PURPOSE OF ENCOUNTER: * Summary transmission is received from Medtronic implantable loop recorder. *PRESENTING ECG: * Sinus rhythm at 70 bp m. No ectopy was noted. *BATTERY STATUS: *Okay. *EPISODES: * Since ??device reports epis odes: No new alert observations were recorded by the device. *HISTOGRAMS: * Show normal distribution with majority of heart rates between 50-100 bpm. ?? *PATIENT ACTIVITY LEVEL: * Activity leve l ranges from 2-6 hours per day. *INTERPRETING TECHNICHIAN: GAURAV Bassett Alexis Ledezma M.D., M.P.H. CV IMPLANTABLE CARDIAC DEV ICE documented in this encounter Visit Diagnoses Diagnosis Palpitations documented in this encounter
--- OUTSIDE RECORDS SUMMARY | 2022-03-30 16:01 | XMS_ITS | Encounter Summary ---
:1950 Author Organization [facility] Address [address] [place] [address] Care Team Providers Name Role Phone Unavailable Primary Care Provider Unavailable Encounter Details Date Type Department Care Team Description 06/06/2018 Hospital Encounter Department of Alexis Ledezma, Palp itations Cardiovascular Diseases in M.D., [facility] [place], [place] [address] [facility] [address] [place] [phone] [phone] Social History Tobacco Use Types Packs/Day Years [...] Associated Diagnosis Comme nts LOOP RECORDER Routine 06/06/2018 4:11 PM Palpitations Results for this REMOTE FOLLOW UP CDT procedure a re in the results section. documented in this encounter Results LOOP RECORDER REMOTE FOLLOW UP (06/06/2018 4:11 PM CDT) Component Value Ref Test Analysis Performed At [facility] Range Method Time Signature Date Time [id number] [facility] Interrogation +0000 LAB SYSTEM Session Implantable Medtronic FOUNDATION Pulse Generator LAB SYSTEM Bristle Machine Operator Implantable LNQ11 Reveal FOUNDATION Pulse Generator LINQ LAB SYSTEM Model Implantable [id number] [facility] Pulse Generator LAB SYSTEM Serial Number Type Remote [facility]OUNDATION Interrogation LAB SYSTEM Session Clinic Name ECG Event - [facility] LAB SYSTEM [place] Implantable Implantable FOUNDATION Pulse Generator Diagnostic LAB SYSTEM Type Monitor Implantable [id number] [facility] Pulse Generator LAB SYSTEM Implant Date Anatomical Region Laterality Modality Other Specimen (Source) Anatomical Collection Method Collection Time Re ceived Time Location / / Volume Laterality 06/03/2018 12:08 AM CDT Narrative 06/07/2018 10:38 AM CDT *PURPOSE OF ENCOUNTER: * Summary transmission is received from Medtronic implantable loop recorder. *PRESENTING ECG: * Normal sinus bradycar kayli, rate 58 BPM. No ectopy was present. *BATTERY STATUS: *Okay. *EPISODES: * Since 05/02/2018 device repo rts episodes: No new alert observations were recorded by the device . *HISTOGRAMS: * Show normal distribution with majority of heart rates between 50-90 bpm. ?? *PATIENT ACTIVITY LEVEL: * Activity leve l ranges from 2-4 hours per day. *INTERPRETING TECH:* GAURAV SALDAÑA Alexis Ledezma M.D., M.P.H. CV IMPLANTABLE CARDIAC DEV ICE documented in this encounter Visit Diagnoses Diagnosis Palpitations documented in this encounter
--- OUTSIDE RECORDS SUMMARY | 2022-03-30 16:01 | XMS_ITS | Encounter Summary ---
:1950 Author Organization [facility] Address [address] [place] [address] Care Team Providers Name Role Phone Unavailable Primary Care Provider Unavailable Encounter Details Date Type Department Care Team Description 03/31/2018 Hospital Encounter Department of Mariaa Lopez Pa lpitations Cardiovascular Diseases Marjan, M. B.A. in [facility] [address] [place] [address] [place] [address] [phone] Social History Tobacco Use Types Packs/Day Years [...] Associated Diagnosis Comme nts LOOP RECORDER Routine 03/31/2018 11:47 Palpitations Results fo r this REMOTE FOLLOW UP AM CDT procedure a re in the results section. documented in this encounter Results LOOP RECORDER REMOTE FOLLOW UP (03/31/2018 11:47 AM CDT) Component Value Ref Test Analysis Performed At [facility] Range Method Time Signature Date Time [id number] [facility] Interrogation +0000 LAB SYSTEM Session Implantable Medtronic FOUNDATION Pulse Generator LAB SYSTEM Woodworking Machine Offbearer Implantable LNQ11 Reveal [facility]OUNDATION Pulse Generator LINQ LAB SYSTEM Model Implantable [id number] [facility]OUNDATION Pulse Generator LAB SYSTEM Serial Number Type Remote FOUNDATION Interrogation LAB SYSTEM Session Clinic Name ECG Event - [facility] LAB SYSTEM [place] Implantable Implantable FOUNDATION Pulse Generator Diagnostic LAB SYSTEM Type Monitor Implantable [id number] [facility] Pulse Generator LAB SYSTEM Implant Date Anatomical Region Laterality Modality Other Specimen (Source) Anatomical Collection Method Collection Time Re ceived Time Location / / Volume Laterality 03/31/2018 4:42 AM CDT Narrative 03/31/2018 1:49 PM CDT *PURPOSE OF ENCOUNTER: * Summary transmission is received from Medtronic implantable loop recorder. *PRESENTING ECG: * Sinus bradycardia at 58 bpm. No ectopy was noted. *BATTERY STATUS: *Okay. *EPISODES: * Since 02-26-18 device reports episodes: No new alert observations were recorded by the device . *HISTOGRAMS: * Show normal distribution with majority of heart rates between 50 - 90 bpm. ?? *PATIENT ACTIVITY LEVEL: * Activity leve l ranges from 3 - 5.5 hours per day. *INTERPRETING TECH: * GAURAV Bejarano Mariaa Lopez M.D., M.B.A. CV IMPLANTABLE CARDIAC D EVICE documented in this encounter Visit Diagnoses Diagnosis Palpitations documented in this encounter
--- OUTSIDE RECORDS SUMMARY | 2022-03-30 16:01 | XMS_ITS | Encounter Summary ---
:1950 Author Organization [facility] Address [address] [place] [address] Care Team Providers Name Role Phone Unavailable Primary Care Provider Unavailable Encounter Details Date Type Department Care Team Description 01/26/2018 Hospital Encounter Department of [place] ions Cardiovascular Diseases in [place], [place] [address] [place] [address] [address] [place] [address] [phone] Social History Tobacco Use Types Packs/Day Years Used Date Smoking Tobacco: Never Sex Assigned at Date Recorded Not on file documented as of this encounter Medications at Time of Discharge Medication Sig Dispensed Refills Start Date End Date atenolol (TENORMIN) 50 mg Take 1 tablet by 0 0 01/2017 tablet mouth daily. levothyroxine (SYNTHROID, Take 1 tablet by 0 030 01/2017 LEVOTHROID) 75 mcg tablet mouth daily. [...] Associated Diagnosis Comme nts LOOP RECORDER Routine 01/26/2018 10:02 Palpitations Results fo r this REMOTE FOLLOW UP AM CDT procedure a re in the results section. documented in this encounter Results LOOP RECORDER REMOTE FOLLOW UP (01/26/2018 10:02 AM CDT) Component Value Ref Test Analysis Performed At [facility] Range Method Time Signature Date Time [id number] F[facility]ATION Interrogation +0000 LAB SYSTEM Session Implantable Medtronic FOUNDATION Pulse Generator LAB SYSTEM Semiconductor Wafers Marker Implantable LNQ11 Reveal FOUNDATION Pulse Generator LINQ LAB SYSTEM Model Implantable [id number] [facility]OUND[facility] Pulse Generator LAB SYSTEM Serial Number Type Remote [facility]OUNDATION Interrogation LAB SYSTEM Session Clinic Name ECG Event - [facility] LAB SYSTEM [place] Implantable Implantable FOUNDATION Pulse Generator Diagnostic LAB SYSTEM Type Monitor Implantable [id number] [facility]OUNDATION Pulse Generator LAB SYSTEM Implant Date Anatomical Region Laterality Modality Other Specimen (Source) Anatomical Collection Method Collection Time Re ceived Time Location / / Volume Laterality 01/25/2018 10:08 PM CDT Narrative 02/10/2018 7:55 AM CDT *PURPOSE OF ENCOUNTER: * Summary transmission is received from Medtronic implantable loop recorder. *PRESENTING ECG: * Sinus bradycardia wit h sinus arrhythmia, rate 50 BPM. ?? No ectopy was present. *BATTERY STATUS: *Okay. *EPISODES: * Since 12-26-2017 device repor ts episodes: ??No new alert observations were recorded by the device . *PATIENT ACTIVITY LEVEL: * Activity leve l ranges from 2 to 4 hours per day. *HISTOGRAMS: * Show normal distribution with majority of heart rates between 50 to 100 bpm. ?? *INTERPRETING TECH: * GAURAV Domínguez Kari Romero CV IMPLANTABLE CARDIAC DEVIC E documented in this encounter Visit Diagnoses Diagnosis Palpitations documented in this encounter
--- OUTSIDE RECORDS SUMMARY | 2022-03-30 16:01 | XMS_ITS | Encounter Summary ---
:1950 Author Organization [facility] Address [address] [place] [address] Care Team Providers Name Role Phone Unavailable Primary Care Provider Unavailable Encounter Details Date Type Department Care Team Description 02/24/2018 Hospital Encounter Department of Ani, Stenosis Aortic Valve Acquired; [facility] [place], [place] Dyspnea On Exertion [address] [place] [address] Social History Tobacco Use Types Packs/Day Years [...] Name Priority Date/Time Associated Comments Diagnosis US CAROTID RAD - Routine 02/24/2018 9:19 Stenosis Aortic Results for this BILATERAL (most inpatients AM CDT Valve Acquired procedure are in and all Shortness Of the results outpatients) Breath section. Dyspnea On Exertion documented in this encounter Results US Carotid Bilateral (02/24/2018 9:19 AM CDT) Anatomical Region Laterality Modality Head and Neck, Ultrasound RST LOS Bilateral Ultras ound Specimen (Source) Anatomical Collection Method Collection Time Re ceived Time Location / / Volume Laterality 02/24/2018 9:24 AM CDT Impressions 02/24/2018 9:33 AM CDT IMPRESSION: ?? 1. Right carotid bifurcation/proximal IC A stenosis in the range of 50-69%. 2. 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 Narrative 02/24/2018 9:33 AM CDT EXAM: US CAROTID BILATERAL COMPARISON: ??CTA 10/25/2016 FINDINGS: RIGHT: ??Moderate calcified atheromatous plaque at the carotid bifurcation. Doppler evaluation shows elevated veloci ty in the proximal ICA is consistent with stenosis in the range of 50-69%. No ECA stenosis. Vertebral artery has normal antegrade flow. LEFT: ??Mild calcified atheromatous plaq ue at the bifurcation. No ICA, CCA or ECA stenosis. The vertebral artery has an ab normal waveform suggestive of proximal stenosis. In correlation with prior CTA, the vertebral artery has its origin from the aortic arch and it is small in size but there is probably a stenosis in the proximal segment that accounts for t he abnormal waveform. The subclavian artery is patent and negative for stenos is. VELOCITIES (cm/sec) Right CCA *psv: ??54 cm/s Right ICA psv: 141 cm/s Right ICA edv: 51 cm/s Right ECA psv: 80 cm/s Right ICA/CCA: 2.6 Left CCA *psv: 72 cm/s Left ICA psv: 69 cm/s Left ICA edv: ??25 cm/s Left ECA psv: ??71 cm/s Left ICA/CCA: 1.0 ?? *mid/distal (non-diseased) Measurement of a carotid stenosis, if pr esent, is based on velocity parameters that compare the residual internal carot id luminal diameter with that of the normal distal ICA in accordance with Nor th [place] Symptomatic Carotid Endarterectomy Trial (NASCET). Procedure Note Shayne Tabor M.D. - 02/24/2018Form atting of this note might be different from the original. EXAM: US CAROTID BILATERAL COMPARISON: CTA 10/25/2016 FINDINGS: RIGHT: Moderate calcified atheromatous p laque at the carotid bifurcation. Doppler evaluation shows elevated veloci ty in the proximal ICA is consistent with stenosis in the range of 50-69%. No ECA stenosis. Vertebral artery has normal antegrade flow. LEFT: Mild calcified atheromatous plaque at the bifurcation. No ICA, CCA or ECA stenosis. The vertebral artery has an ab normal waveform suggestive of proximal stenosis. In correlation with prior CTA, the vertebral artery has its origin from the aortic arch and it is small in size but there is probably a stenosis in the proximal segment that accounts for t he abnormal waveform. The subclavian artery is patent and negative for stenos is. VELOCITIES (cm/sec) Right CCA *psv: 54 cm/s Right ICA psv: 141 cm/s Right ICA edv: 51 cm/s Right ECA psv: 80 cm/s Right ICA/CCA: 2.6 Left CCA *psv: 72 cm/s Left ICA psv: 69 cm/s Left ICA edv: 25 cm/s Left ECA psv: 71 cm/s Left ICA/CCA: 1.0 *mid/distal (non-diseased) Measurement of a carotid stenosis, if pr esent, is based on velocity parameters that compare the residual internal carot id luminal diameter with that of the normal distal ICA in accordance with Nor th [place] Symptomatic Carotid Endarterectomy Trial (NASCET). IMPRESSION: 1. Right carotid bifurcation/proximal IC A stenosis in the range of 50-69%. 2. 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 Mallika MILLER US PROCEDURES documented in this encounter Visit Diagnoses Diagnosis Stenosis Aortic Valve Acquired Shortness Of Breath Dyspnea On Exertion documented in this encounter
--- OUTSIDE RECORDS SUMMARY | 2022-03-30 16:01 | XMS_ITS | Encounter Summary ---
:1950 Author Organization [facility] Address [address] [place] [address] Care Team Providers Name Role Phone Unavailable Primary Care Provider Unavailable Encounter Details Date Type Department Care Team Description 07/05/2018 Hospital Encounter Department of [place] ions Cardiovascular Diseases [place] [address] [place] [phone] [phone] Social History Tobacco Use Types Packs/Day Years [...] Associated Diagnosis Comme nts LOOP RECORDER Routine 07/05/2018 3:32 PM Palpitations Results for this REMOTE FOLLOW UP BOAT OUTFITTER procedure a re in the results section. documented in this encounter Results LOOP RECORDER REMOTE FOLLOW UP (07/05/2018 3:32 PM BOAT OUTFITTER) Component Value Ref Test Analysis Performed At [facility] Range Method Time Signature Date Time [id number] [facility]ATION Interrogation +0000 LAB SYSTEM Session Implantable Medtronic FOUNDATION Pulse Generator LAB SYSTEM School Psychologist Implantable LNQ11 Reveal FOUNDATION Pulse Generator LINQ LAB SYSTEM Model Implantable [id number] FOUNDATION Pulse Generator LAB SYSTEM Serial Number Type Remote [facility] Interrogation LAB SYSTEM Session Clinic Name ECG Event - [facility] LAB SYSTEM [place] Implantable Implantable FOUNDATION Pulse Generator Diagnostic LAB SYSTEM Type Monitor Implantable [id number] FOUNDATION Pulse Generator LAB SYSTEM Implant Date Anatomical Region Laterality Modality Other Specimen (Source) Anatomical Collection Method Collection Time Re ceived Time Location / / Volume Laterality 07/05/2018 6:44 AM BOAT OUTFITTER Narrative 08/29/2018 10:32 AM BOAT OUTFITTER *PURPOSE OF ENCOUNTER: * Summary transmission is received from Medtronic implantable loop recorder. *PRESENTING ECG: * Sinus rhythm at 75 bp m. No ectopy was noted. *BATTERY STATUS: *Okay. *EPISODES: * Since 02-Jun-2018 device re ports episodes: *HISTOGRAMS: * Show normal distribution with majority of heart rates between 50-100 bpm. ?? *PATIENT ACTIVITY LEVEL: * Activity leve l ranges from 2.5-4 hours per day. *INTERPRETING TECHNICHIAN: GAURAV Bassett Kari Romero CV IMPLANTABLE CARDIAC DEVIC E documented in this encounter Visit Diagnoses Diagnosis Palpitations documented in this encounter
--- OUTSIDE RECORDS SUMMARY | 2022-03-30 16:01 | XMS_ITS | Encounter Summary ---
:1950 Author Organization [facility] Address [address] [place] [address] Care Team Providers Name Role Phone Unavailable Primary Care Provider Unavailable Encounter Details Date Type Department Care Team Description 01/18/2019 Hospital Encounter Department of Bud Saleh Pal pitations Cardiovascular Diseases Marjan in [facility] [address] [facility] [address] [place] [phone] [phone] Social History Tobacco Use Types Packs/Day Years [...] Associated Diagnosis Comme nts LOOP RECORDER Routine 01/18/2019 11:50 Palpitations Results fo r this REMOTE FOLLOW UP AM CDT procedure a re in the results section. documented in this encounter Results LOOP RECORDER REMOTE FOLLOW UP (01/18/2019 11:50 AM CDT) Component Value Ref Test Analysis Performed At [facility] gist Range Method Time Signature Date Time [id number] [facility] Interrogation +0000 LAB SYSTEM Session Implantable Medtronic FOUNDATION Pulse Generator LAB SYSTEM Health Plan Manager Implantable LNQ11 Reveal FOUNDATION Pulse Generator LINQ LAB SYSTEM Model Implantable [id number] FOUNDATION Pulse Generator LAB SYSTEM Serial Number Type Remote [facility] Interrogation LAB SYSTEM Session Clinic Name ECG Event - [facility] LAB SYSTEM [place] Implantable Implantable FOUNDATION Pulse Generator Diagnostic LAB SYSTEM Type Monitor Implantable [id number] [facility]ATION Pulse Generator LAB SYSTEM Implant Date Anatomical Region Laterality Modality Other Specimen (Source) Anatomical Collection Method Collection Time Re ceived Time Location / / Volume Laterality 01/16/2019 8:36 AM CDT Narrative 01/22/2019 4:04 PM CDT *PURPOSE OF ENCOUNTER: * Summary transmission is received 01/16/2019 from Medtronic implantable loop recorder. *PRESENTING ECG: * Sinus rhythm with an approximate heart rate of 79 BPM. No ectopy was noted. *BATTERY STATUS: *Okay. *EPISODES: * Since 12/15/2018 device rep orts episodes: No new alert observations were recorded by the device . *PATIENT ACTIVITY LEVEL: * Activity leve l ranges from 1.8-4 hours per day. *HISTOGRAMS: * Show normal distribution with majority of heart rates between 40-100 bpm. ?? *INTERPRETING TECH: * GAURAV Wheat- CCT Bud Saleh M.D. CV IMPLANTABLE CARDIAC DEVIC E documented in this encounter Visit Diagnoses Diagnosis Palpitations documented in this encounter
--- OUTSIDE RECORDS SUMMARY | 2022-03-30 16:01 | XMS_ITS | Encounter Summary ---
:1950 Author Organization [facility] Address [address] [place] [address] Care Team Providers Name Role Phone Unavailable Primary Care Provider Unavailable Reason for Visit Reason Onset Date Comments Appointment 01/19/2018 Encounter Details Date Type Department Care Team Description 01/19/2018 Clinical Communication Department of [place] Cardiovascular Medicine Marjan Tena in [facility] [address] [place] [address] Social History Tobacco Use Types Packs/Day Years Used Date Smoking Tobacco: Never Sex Assigned at Date Recorded Not on file documented as of this encounter Miscellaneous Notes Telephone Encounter - Natalia Jefferson - 01/19/2018 9:58 AM CDT Patient is scheduled 02/27/18. What would you like for testing? Natalia documented in this encounter Plan of Treatment Not on filedocumented as of this encounter Visit Diagnoses Not on filedocumented in this encounter
--- OUTSIDE RECORDS SUMMARY | 2022-03-30 16:01 | XMS_ITS | Encounter Summary ---
:1950 Author Organization [facility] Address [address] [place] [address] Care Team Providers Name Role Phone Unavailable Primary Care Provider Unavailable Encounter Details Date Type Department Care Team Description 02/20/2019 Hospital Encounter Department of Brooke Mcconnell Palpi tations Cardiovascular Diseases in [place], [place] [address] [facility] [address] [place] [address] [phone] Social History Tobacco Use Types Packs/Day Years [...] Associated Diagnosis Comme nts LOOP RECORDER Routine 02/20/2019 11:43 Palpitations Results fo r this REMOTE FOLLOW UP AM CDT procedure a re in the results section. documented in this encounter Results LOOP RECORDER REMOTE FOLLOW UP (02/20/2019 11:43 AM CDT) Component Value Ref Test Analysis Performed At [facility] Range Method Time Signature Date Time [id number] [facility]ATION Interrogation +0000 LAB SYSTEM Session Implantable Med[employer]onic FOUNDATION Pulse Generator LAB SYSTEM Kerrick Kleaner Operator Implantable LNQ11 Reveal FOUNDATION Pulse Generator LINQ LAB SYSTEM Model Implantable [id number] [facility]ATION Pulse Generator LAB SYSTEM Serial Number Type Remote [facility] Interrogation LAB SYSTEM Session Clinic Name ECG Event - [facility] LAB SYSTEM [place] Implantable Implantable FOUNDATION Pulse Generator Diagnostic LAB SYSTEM Type Monitor Implantable [id number] [facility]ATION Pulse Generator LAB SYSTEM Implant Date Anatomical Region Laterality Modality Other Specimen (Source) Anatomical Collection Method Collection Time Re ceived Time Location / / Volume Laterality 02/17/2019 8:36 AM CDT Narrative 02/27/2019 1:35 PM CDT *PURPOSE OF ENCOUNTER: * Summary transmission is received from Medtronic implantable loop recorder. *PRESENTING ECG: * Sinus rhythm, 75 BPM *BATTERY STATUS: *Okay. *EPISODES: * Since 16-Jan-2019 device re ports episodes: No new alert observations were recorded by the device . *HISTOGRAMS: * Show normal distribution with majority of heart rates between 50-90 bpm. ?? *PATIENT ACTIVITY LEVEL: * Activity leve l ranges from 2-4 hours per day. *INTERPRETING TECH: * GAURAV Meyer Brooke Romero CV IMPLANTABLE CARDIAC DEVIC E documented in this encounter Visit Diagnoses Diagnosis Palpitations documented in this encounter
--- OUTSIDE RECORDS SUMMARY | 2022-03-30 16:01 | XMS_ITS | Encounter Summary ---
:1950 Author Organization [facility] Address [address] [place] [address] Care Team Providers Name Role Phone Unavailable Primary Care Provider Unavailable Encounter Details Date Type Department Care Team Description 01/14/2018 Abstract DATA ABSTRACTION Provider, Historical Social History Tobacco Use Types Packs/Day Years Used Date Smoking Tobacco: Never Sex Assigned at Date Recorded Not on file documented as of this encounter Plan of Treatment Not on filedocumented as of this encounter Visit Diagnoses Not on filedocumented in this encounter
--- OUTSIDE RECORDS SUMMARY | 2022-03-30 16:01 | XMS_ITS | Encounter Summary ---
:1950 Author Organization [facility] Address [address] [place] [address] Care Team Providers Name Role Phone Unavailable Primary Care Provider Unavailable Encounter Details Date Type Department Care Team Description 05/24/2019 Hospital Encounter Department of [place], Palpitat ions Cardiovascular Diseases Derian Driver M.D. in [facility] 200 [facility] [address] [place] [address] [phone] Social History Tobacco Use Types Packs/Day Years [...] Associated Diagnosis Comme nts LOOP RECORDER Routine 05/24/2019 11:43 Palpitations Results fo r this REMOTE FOLLOW UP AM CDT procedure a re in the results section. documented in this encounter Results LOOP RECORDER REMOTE FOLLOW UP (05/24/2019 11:43 AM CDT) Component Value Ref Test Analysis Performed At [facility] Range Method Time Signature Date Time [id number] [facility]ATION Interrogation +0000 LAB SYSTEM Session Implantable Medtronic FOUNDATION Pulse Generator LAB SYSTEM Travel Agency Manager Implantable LNQ11 Reveal [facility] Pulse Generator LINQ LAB SYSTEM Model Implantable [id number] FOUNDATION Pulse Generator LAB SYSTEM Serial Number Type Remote [facility] Interrogation LAB SYSTEM Session Clinic Name ECG Event - [facility] LAB SYSTEM [place] Implantable Implantable FOUNDATION Pulse Generator Diagnostic LAB SYSTEM Type Monitor Implantable [id number] [facility]ATION Pulse Generator LAB SYSTEM Implant Date Anatomical Region Laterality Modality Other Specimen (Source) Anatomical Collection Method Collection Time Re ceived Time Location / / Volume Laterality 05/24/2019 10:09 AM CDT Narrative 05/30/2019 3:59 PM CDT *PURPOSE OF ENCOUNTER: * Summary transmission is received 05/24/2019 from Medtronic implantable loop recorder. *PRESENTING ECG: * Sinus rhythm with an approximate heart rate of 60 BPM. No ectopy was noted. *BATTERY STATUS: *Okay. *EPISODES: * Since 04/22/2019 device repo rts episodes: No new alert observations were recorded by the device . *PATIENT ACTIVITY LEVEL: * Activity leve l ranges from 2-4.2 hours per day. *HISTOGRAMS: * Show normal distribution with majority of heart rates between 40-100 bpm. ?? *INTERPRETING TECH: * RAGHAVENDRA WheatT- CCT Derian Hammer M.D. CV IMPLANTABLE CARDIAC DEVIC E documented in this encounter Visit Diagnoses Diagnosis Palpitations documented in this encounter
--- OUTSIDE RECORDS SUMMARY | 2022-03-30 16:01 | XMS_ITS | Encounter Summary ---
:1950 Author Organization [facility] Address [address] [place] [address] Care Team Providers Name Role Phone Unavailable Primary Care Provider Unavailable Encounter Details Date Type Department Care Team Description 10/26/2016 Hospital Encounter HX NO MAPPING Social History [...]
--- OUTSIDE RECORDS SUMMARY | 2022-03-30 16:01 | XMS_ITS | Encounter Summary ---
:1950 Author Organization [facility] Address [address] [place] [address] Care Team Providers Name Role Phone Unavailable Primary Care Provider Unavailable Encounter Details Date Type Department Care Team Description 08/09/2018 Hospital Encounter Department of Emmanuel Mclaughlin lpitations Cardiovascular Diseases Flex DriverB PeytonS. in [facility] [address] [facility] [address] [place] [phone] [phone] Social History Tobacco Use Types Packs/Day Years [...] Associated Diagnosis Comme nts LOOP RECORDER Routine 08/09/2018 1:08 PM Palpitations Results for this REMOTE FOLLOW UP CORRECTIVE THERAPIST procedure a re in the results section. documented in this encounter Results LOOP RECORDER REMOTE FOLLOW UP (08/09/2018 1:08 PM CORRECTIVE THERAPIST) Component Value Ref Test Analysis Performed At [facility] Range Method Time Signature Date Time [id number] [facility]OUNDATION Interrogation +0000 LAB SYSTEM Session Implantable Medtronic FOUNDATION Pulse Generator LAB SYSTEM Flattening Machine Operator Implantable LNQ11 Reveal FOUNDATION Pulse Generator LINQ LAB SYSTEM Model Implantable [id number] FOUNDATION Pulse Generator LAB SYSTEM Serial Number Type Remote [facility] Interrogation LAB SYSTEM Session Clinic Name ECG Event - [facility] LAB SYSTEM [place] Implantable Implantable FOUNDATION Pulse Generator Diagnostic LAB SYSTEM Type Monitor Implantable [id number] [facility]OUNDATION Pulse Generator LAB SYSTEM Implant Date Anatomical Region Laterality Modality Other Specimen (Source) Anatomical Collection Method Collection Time Re ceived Time Location / / Volume Laterality 08/06/2018 6:37 AM CORRECTIVE THERAPIST Narrative 08/10/2018 4:24 PM CORRECTIVE THERAPIST *PURPOSE OF ENCOUNTER: * Summary transmission is received from Medtronic implantable loop recorder. *PRESENTING ECG: * Sinus rhythm at 75 bp m. No ectopy was noted. *BATTERY STATUS: *Okay. *EPISODES: * Since 05-Jul-2018 device re ports episodes: No new alert observations were recorded by the device . Note: the date created and date received is different due to poor connec tion to the patients bedside monitor at times. *HISTOGRAMS: * Show normal distribution with majority of heart rates between 50-100 bpm. ?? *PATIENT ACTIVITY LEVEL: * Activity leve l ranges from 2.5 to 4.5 hours per day. *INTERPRETING TECHNICHIAN: *GAURAV Bill Emmanuel Romero CV IMPLANTABLE CARDIAC DE VICE documented in this encounter Visit Diagnoses Diagnosis Palpitations documented in this encounter
--- OUTSIDE RECORDS SUMMARY | 2022-03-30 16:01 | XMS_ITS | Encounter Summary ---
:1950 Author Organization [facility] Address [address] [place] [address] Care Team Providers Name Role Phone Unavailable [...]
--- OUTSIDE RECORDS SUMMARY | 2022-03-30 16:01 | XMS_ITS | Encounter Summary ---
:1950 Author Organization [facility] Address [address] [place] [address] Care Team Providers Name Role Phone Unavailable Primary Care Provider Unavailable Encounter Details Date Type Department Care Team Description 10/12/2018 Hospital Encounter Department of Jorge Dawkins Palpita tions Cardiovascular Diseases in [place], Ph.D. [place], [place] [address] [place] [address] [address] [place] [address] [phone] Social History Tobacco Use Types Packs/Day Years [...] Associated Diagnosis Comme nts LOOP RECORDER Routine 10/12/2018 11:48 Palpitations Results fo r this REMOTE FOLLOW UP AM VMWARE CONSULTANT procedure a re in the results section. documented in this encounter Results LOOP RECORDER REMOTE FOLLOW UP (10/12/2018 11:48 AM VMWARE CONSULTANT) Component Value Ref Test Analysis Performed At [facility] Range Method Time Signature Date Time [id number] FOUNDATION Interrogation +0000 LAB SYSTEM Session Implantable Medtronic FOUNDATION Pulse Generator LAB SYSTEM Logging Specialist Implantable LNQ11 Reveal FOUNDATION Pulse Generator LINQ LAB SYSTEM Model Implantable [id number] FOUNDATION Pulse Generator LAB SYSTEM Serial Number Type Remote [facility] Interrogation LAB SYSTEM Session Clinic Name ECG Event - [facility] LAB SYSTEM [place] Implantable Implantable FOUNDATION Pulse Generator Diagnostic LAB SYSTEM Type Monitor Implantable [id number] [facility]OUNDATION Pulse Generator LAB SYSTEM Implant Date Anatomical Region Laterality Modality Other Specimen (Source) Anatomical Collection Method Collection Time Re ceived Time Location / / Volume Laterality 10/12/2018 4:41 AM VMWARE CONSULTANT Narrative 10/25/2018 11:03 AM VMWARE CONSULTANT *PURPOSE OF ENCOUNTER: * Summary transmission is received from Medtronic implantable loop recorder. *PRESENTING ECG: * sinus rhythm at 65 bp m. No ectopy was noted. *BATTERY STATUS: *Okay. *EPISODES: * Since 10-12-18 device report s episodes: No new alert observations were recorded by the device . *HISTOGRAMS: * Show normal distribution with majority of heart rates between 50-100 bpm. ?? *PATIENT ACTIVITY LEVEL: * Activity leve l ranges from 2-5 hours per day. *INTERPRETING TECH*: GAURAV Monson Jorge Dawkins M.D., Ph.D. CV IMPLANTABLE CARDIAC DEVIC E documented in this encounter Visit Diagnoses Diagnosis Palpitations documented in this encounter
--- OUTSIDE RECORDS SUMMARY | 2022-03-30 16:01 | XMS_ITS | Encounter Summary ---
:1950 Author Organization [facility] Address [address] [place] [address] Care Team Providers Name Role Phone Unavailable Primary Care Provider Unavailable Encounter Details Date Type Department Care Team Description 03/21/2019 Hospital Encounter Department of Emmanuel Mclaughlin lpitations Cardiovascular Diseases Flex DriverB PeytonS. in [facility] [address] [facility] [address] [place] [address] [phone] Social History Tobacco Use Types Packs/Day Years [...] Associated Diagnosis Comme nts LOOP RECORDER Routine 03/21/2019 12:01 Palpitations Results fo r this REMOTE FOLLOW UP PM CDT procedure a re in the results section. documented in this encounter Results LOOP RECORDER REMOTE FOLLOW UP (03/21/2019 12:01 PM CDT) Component Value Ref Test Analysis Performed At [facility] Range Method Time Signature Date Time [id number] FOUNDATION Interrogation +0000 LAB SYSTEM Session Implantable Med[employer] FOUNDATION Pulse Generator LAB SYSTEM Steel Pourer Implantable LNQ11 Reveal [facility]OUNDATION Pulse Generator LINQ LAB SYSTEM Model Implantable [id number] FOUNDATION Pulse Generator LAB SYSTEM Serial Number Type Remote [facility] Interrogation LAB SYSTEM Session Clinic Name ECG Event - [facility] LAB SYSTEM [place] Implantable Implantable [facility]OUNDATION Pulse Generator Diagnostic LAB SYSTEM Type Monitor Implantable [id number] [facility]OUNDATION Pulse Generator LAB SYSTEM Implant Date Anatomical Region Laterality Modality Other Specimen (Source) Anatomical Collection Method Collection Time Re ceived Time Location / / Volume Laterality 03/21/2019 8:36 AM CDT Narrative 03/25/2019 3:21 PM CDT *PURPOSE OF ENCOUNTER: * Summary transmission is received from Medtronic implantable loop recorder. *PRESENTING ECG: * The ECG strip showed sinus rhythm, rate 79 BPM. No ectopy was noted. *BATTERY STATUS: *Okay. *EPISODES: * Since 17-Feb-2019 ??device reports episodes: No new alert observations were recorded by the device . *HISTOGRAMS: * Show normal distribution with majority of heart rates between 50-90 bpm. ?? *PATIENT ACTIVITY LEVEL: * Activity leve l ranges from 2-5 hours per day. *INTERPRETING TECH:* GAURAV SALDAÑA Emmanuel Romero CV IMPLANTABLE CARDIAC DE VICE documented in this encounter Visit Diagnoses Diagnosis Palpitations documented in this encounter
== END 2022-03-08 19:13 | disposition home or self-care (01) ==
PROVIDERS: Emergency Provider Family Medicine; PCP Internal Medicine
DX: R42 Dizziness and giddiness (principal)
CPT/HCPCS: 36415; 80048; 80076; 81001; 84484; 85025; 87086; 87502; 87635; 93005; 99284

== ENCOUNTER 2022-07-07 16:01 | Outpatient (CLI) | payer MEDICARE, OTHER, SELFPAY ==
--- OUTSIDE RECORDS SUMMARY | 2022-07-07 08:06 | XMS_ITS | Clinical Summary ---
:1950 Author Organization [facility] [place] [address] Care Team Providers Name Role Phone Nai Law MD Primary Care Provider Allergies Active Allergy Reactions Severity Noted Date Comments Niacin Flushing 11/22/2007 Medications Medication Sig Dispensed Refills Start End Date Status Date DAILY VITAMIN TAB take 1 tablet by 0 Active oral route once daily with food atorvastatin (LIPITOR) 80 Take 1 Tablet (80 90 tablet. 1 06/10 Active mg tabletIndications: mg) by mouth once 1 Pure hypercholesterolemia daily. aspirin (ECOTRIN) 81 mg Take 1 Tablet (81 0 06/27/20 2 Active enteric coated tablet mg) by mouth once 1 daily with a meal. TURMERIC ORAL Take 15 mL by 0 Ac tive mouth once daily. ubidecarenone (COENZYME Take 10 mL by 0 Active Q10 ORAL) mouth once daily. ascorbic acid, vitamin C, Take 1,000 mg by 0 Active (VITAMIN C) 1,000 mg mouth once daily. tablet cholecalciferol, Vitamin Take 5,000 units 0 Active D3, 5,000 unit tab tablet by mouth once daily. warfarin (COUMADIN) 3 mg Take one tablet 10 Tablet 0 Active tabletIndications: Aortic (3 mg) on 08/07, 1 thrombus (HC) 08/08, 08/09 then further dosage per PCP. INR GOAL: 2.5-3.5. INR to be drawn at PCP on Tuesday, Aug 10 ATENOLOL ORALIndications: Take 25 mg by 0 Active control HTN mouth once daily. amoxicillin (AMOXIL) 500 Take 2,000 mg by 0 12/03/19 2 Active mg capsule mouth one time if 2 needed. Take 4 capsules one hour before dental appointment acetaminophen (TYLENOL) Take 2 Tablets 0 Active 325 mg tabletIndications: (650 mg) by mouth 2 Status post placement of every 4 hours if implantable loop recorder needed for Pain (For mild pain.). Max acetaminophen dose: 4000mg in 24 hrs. levothyroxine (SYNTHROID) TAKE 1 TABLET 90 Tablet 0 Active 75 mcg tabletIndications: DAILY 2 Acquired hypothyroidism Active Problems Problem Noted Date Mid back pain on left side 10/03/2015 Chicken pox 01/21/2015 Overview: Not immune! Should get varicella not Zos tavax!! Left carotid bruit 06/11/2014 Overview: Referred sound. Normal ultrasound 12/03. Hypothyroidism 06/11/2014 Pure hypercholesterolemia 06/16/2006 Mitral valve stenosis and aortic valve stenosis 2005 Unspecified essential hypertension 06/16/2006 Aortic stenosis Overview: 07/25/2017 mild-moderate Sep 2015. Mild i ncrease from 2013. 10/25 murmur - 06/26/21 s/p TAVR Resolved Problems Problem Noted Date Resolved Date Nonspecific abnormal results of thyroid function study 11/0605/02/2018 Pure hypercholesterolemia 06/16/2006 12/30/2006 Encounters Date Type Specialty Care Team Description 06/25/2022 Orders Only Gume Christine <No scans attached> MD Jordan 04/16/2022 Refill Shirin Valderrama, Ref ill Request (Levothyroxine) from Last 3 Months Immunizations Name Administration Dates Next Due COVID-19 vaccine ([employer] 11/16/2020, 10/26/2020 30mcg/0.3mL) EAMON JACK Hepatitis A (Adult) 06/22/2006, 11/17/2005 Hepatitis B (Adult) 06/22/2006, 12/22/2005, 11/17/2005 Influenza, Inactivated IIV3 (Age 65+ 05/02/2018 Years) Preserv Free Pneumococcal Poly,23-Valent (Pneumovax) 09/27/2019 Pneumococcal conj 13-Valent (Prevnar 13) 05/02/2018 Td (Age >=7 Years) 09/27/2019, 08/22/1999 Tdap 10/15/2008 Varicella Vaccine 04/17/2015, 03/13/2015 Family History Medical History Relation Name Comments Good Health Brother 1 RICARDO Good Health Brother 2 TRACEY Heart Disease Father IHD Rhuematic fe chandan deceasesd 63 Good Health Mother Stroke Sister 1 WING CVA @ 56 (2003) Good Health Sister 2 ALONDRA Relation Name Status Comments Brother 1 RICARDO Brother 2 TRACEY Father (Age 63) Mother Sister 1 WING Sister 2 ALONDRA Social History Tobacco Use Types Packs/Day Years Used Date Never Smoker Smokeless Tobacco: Never Used Tobacco Cessation: Counseling Given: Yes Alcohol Use Standard Drinks/Week Comments Not Currently 3.3 (1 standard drink = 0.6 oz pure alco hol) Sex Assigned at Date Recorded Not on file Obstetrics History Para Term AB IAB SAB Ectopic Multiple Living Live Births 3 3 2 1 Date Outcome GA Total Labor/2nd/3rd Weight Sex Delivery Anes PTL Zoë A 1 A5 Name Clin Labor Term Term 26w Y Feta 0d l Clau se Last Filed Vital Signs Vital Sign Reading Time Taken Comments Blood Pressure 173/86 02/15/2022 12:14 PM CDT Pulse 61 02/15/2022 12:14 PM CDT Temperature 36.8 ??C (98.2 ??F) 02/15/2022 12:14 PM CDT Respiratory Rate 20 02/15/2022 12:14 PM CDT Oxygen Saturation 99% 02/15/2022 12:14 PM CDT Inhaled Oxygen Concentration - - Weight 111.3 kg (245 lb 6.4 oz) 02/15/2022 10:27 AM CDT Height 154.9 cm (5' 1) 02/15/2022 10:27 AM CDT Body Mass Index 46.37 02/15/2022 10:27 AM CDT Plan of Treatment Upcoming Encounters Date Type Specialty Care Team Description 08/30/2022 Orders Only 09/02/2022 Office Visit Denzel Christine MD [address] [phone] [place] [address] (Wo rk) Health Maintenance Due Date Last Done Comments DEXA/DXA scan for age 65+ 2017 Mammogram for age 45-75 10/05/2017 10/05/2016, 03/07/2015, 03/07/2015 (Completed outside of [facility]), Additional history exists Medicare Wellness for age 65+ 05/02/2019 05/02/2018 COVID-19 vaccine series (4 - 10/06/2021 08/11/2021, 021, Booster for Pfizer series) 10/26/2020 Influenza for age 65+ 04/22/2022 05/02/2018 Depression screening for age 12+ 10/22/2022 10/22/2021, , 07/10/2021, Additional history exists BMI (ht and wt on same day) for 11/13/2022 11/13/2021, 03/0 10/2021, age 18+ 08/07/2021, Additional history exists Colonoscopy through age 75 12/05/2024 12/05/2014, 5, 02/04/2010 (Completed outside of [facility]) Lipids for age 45-75 06/10/2026 06/10/2021, 09/27/2019, 05/02/2018, Additional history exists Tetanus booster 09/27/2029 09/27/2019, 10/15/2008, 08/22/1999 Tdap Completed 10/15/2008 Hepatitis C screening for age Completed 09/27/2019 18-79 Pneumococcal series for age 65+ Completed 09/27/2019, 04/22 Results Not on filefrom Last 3 Months Insurance Payer Benefit Plan / Subscriber ID Effective Dates Phone Addre ss Type Group MEDICARE PART B MEDICARE PART B [id number] 2017-Presen ATTN: CLAIMS - HB USE ONLY HB ONLY t [address] [place] [address] MEDICARE PART A MEDICARE PART A [id number] 2017-Presen ATTN: CLAIMS - HB USE ONLY HB ONLY t [address] [place] [address] MEDICARE - PB MEDICARE PB [id number] 2017-Presen ATT N: CLAIMS USE ONLY ONLY t [address] [place] [address] PRIME [id number] 2013-Kg C/O A, [facility]/ [address] [place] [phone] FOR [id number] 2017-Presen [address] [place] [address] Dinah Thorne Personal/Family Self [address] (Home) [place] [address] Advance Directives Latest Code Status on File Code Status Date Activated Date Inactivated Comments Full Code 02/15/2022 12:01 PM 02/15/2022 2:42 PM Code Status Discussion: Reviewed Preferences Full Code 06/26/2021 12:30 PM 06/27/2021 2:18 PM Code Status Discussion: Discussed Full Code 06/10/2021 11:57 AM 06/10/2021 7:43 PM Code Status Discussion: Discussed Care Teams Parts Counter Specialist Relationship Specialty Start Date End Date Nai Law MD PCP - General Internal Medicine 05/21/211999 [place] [address]
--- OUTSIDE RECORDS SUMMARY | 2022-07-07 08:06 | XMS_ITS | Clinical Summary ---
:1950 Author Organization [facility] Address [address] [place] [address] Care Team Providers Name Role Phone Elsewhere, Pcp Primary Care Provider Unavailable Source Comments Patient records contain information from all sites at [facility]. For routine questions regarding patient records, call [phone] during business hours, M-F 8:00 AM - 5:00 PM Central Time. Record requests for emergency care only can be directed to [phone] at any time.[facility] Allergies Active Allergy Reactions Severity Noted Date [...] taking. Reported on 03/24/2021 rosuvastatin (CRESTOR) 40 mg tablet Take 40 mg by mouth daily. 0 03/24/2021 Active TURMERIC ORAL Take 15 mg by mouth daily. 0 Active One TBSP daily. ascorbic acid, vitamin C, (Vitamin Take 1,000 mg by mouth 0 Active C) 1,000 mg tablet daily. cholecalciferol (Vitamin D3) 125 Take 125 mcg by mouth 0 Active mcg (5,000 Unit) tablet daily. Active Problems Problem Noted Date Incontinence [...] will have her meet with UroGyn in [facility] to discuss potential surgery. Stenosis Aortic Valve [...] 08/22/2021 COVID-19 Vaccine (4 - Booster for 10/06/2021 08/11/2021, , Pfizer series) 10/26/2020 Office Visit for Blood Pressure Check 03/24/2022 03/24/2021 / Re-check Influenza Vaccine (#1) 2022 05/02/2018 Fasting Glucose for Diabetes 09/27/2022 09/27/2019, 018, Screening 10/25/2016 Colonoscopy 08/27/2023 08/27/2013 (Performed elsewhere) Colorectal Cancer Screening 08/27/2023 Lipid (Cholesterol) Screening 09/27/2024 09/27/2019, 2017, 10/19/2016 (Performed elsewhere) DTaP,Tdap,and Td Vaccines (3 - Td or 09/27/2029 09/27/2019, 10/15/2008 Tdap) Pneumococcal vaccine (65+ years) Completed 09/27/2019, 06/2018 Medical Devices Implanted Type Area Call Worker Person Device Shelf Model / Identifier Expiration Serial / Date Lot Unmetricys Loop Recorder System - Leonard [id number] Implantable Othe r/Legacy - Medtronic / Implanted: Qty: 1 on 10/26/2016 Loop Recorder See Implant [id number] / Description Description: Device Call Worker Person - [employer]. Body Location - Other. Left. Device Status Text - [id number]. Battery is . Insurance Payer Benefit Plan Subscriber ID Effective Phone Address Typ e / Group Dates MEDICARE MEDICARE A [id number] 2017-Pres [address] [place] [address] FOR FOR [id number] 2017-Prese [phone] [address] Indemnity LIFE [address] [place] [address] [address] [facility] (Home) W [phone] [place], [place] (Work) [phone] Care Teams Single Resource Boss Relationship Specialty Start Date End Date Elsewhere, Pcp PCP - General Family Medicine 05/08/21
--- OUTSIDE RECORDS SUMMARY | 2022-07-07 08:06 | XMS_ITS | Encounter Summary ---
:1950 Author Organization [facility] Address [address] [place] [address] Care Team Providers Name Role Phone Unavailable Primary Care Provider Unavailable Reason for Referral Outpatient (Routine) - Closed Specialty Diagnoses / Procedures Referred By Contact Refer red To Contact Diagnoses Incontinence Urinary Stress And Urge Ad Juarez M.D. [facility] Procedures OBG Urodynamic Studies [address] [place] [phone] Referral ID Status Reason Start Date Expiration Date Visits Requ ested Visits Authorized [id number] Closed 05/07/2021 05/07/2022 1 1 Encounter Details Date Type Department Care Team Description 05/07/2021 Orders Only Department of Melvi Dorman Incontin ence Urinary Obstetrics and L, R.N. Stress And Urge Gynecology, Division of [address] [place] [address] (Primary Dx) Urogynecology in [place], [place] [phone] [place] [address] [place], [place] (Work) [phone] Social History Tobacco Use Types Packs/Day Years Used Date Smoking Tobacco: Never Smokeless Tobacco: Never Sex Assigned at Date Recorded Not on file documented as of this encounter Plan of Treatment Not on filedocumented as of this encounter Results OR CYSTOMETROGRAM SIMPLE, OR STEPHANIE PST VOID RESID US NON IMG, OR IRRI BLAD SMPL LAVAGE&/INSTILL, OR UROFLOWMETRY SIMPLE (05/12/2021 9:41 AM CDT) Narrative [...]
--- OUTSIDE RECORDS SUMMARY | 2022-07-07 08:06 | XMS_ITS | Encounter Summary ---
:1950 Author Organization [facility] Address [address] [place] [address] Care Team Providers Name Role Phone Unavailable Primary Care Provider Unavailable Encounter Details Date Type Department Care Team Description 03/10/2020 Hospital Encounter Department of Cale Douglas Cardiovascular Diseases Flex Driver, Ch.B., in [facility] Ph.D. [address] [facility] [address] [place] [phone] [phone] (Wo rk) Social History Tobacco Use Types [...] Component Value Ref Test Analysis Performed At [facility] gist Range Method Time Signature Date Time [id number] [facility] Interrogation +0000 LAB SYSTEM Session Implantable Medtronic [facility] Pulse Generator LAB SYSTEM Drywaller Implantable [id number] Reveal [facility] Pulse Generator LINQ LAB SYSTEM Model Implantable [id number] [facility] Pulse Generator LAB SYSTEM Serial Number Type Remote [facility] Interrogation LAB SYSTEM Session Clinic Name ECG Event - [facility] LAB SYSTEM Boody Implantable Implantable FOUNDATION Pulse Generator Diagnostic LAB SYSTEM Type Monitor Implantable [id number] [facility] Pulse Generator LAB SYSTEM Implant Date Anatomical Region Laterality Modality Other Specimen (Source) Anatomical Collection Method Collection Time Re ceived Time Location / / Volume Laterality 03/09/2020 6:05 AM CDT Narrative 03/16/2020 8:03 PM CDT *PURPOSE OF ENCOUNTER: * Summary transmission is received from [employer] implantable loop recorder. *PRESENTING ECG: * Sinus rhythm at 75 bp m. No ectopy was present. 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
--- OUTSIDE RECORDS SUMMARY | 2022-07-07 08:06 | XMS_ITS | Encounter Summary ---
:1950 Author Organization [facility] Address [address] [place] [address] Care Team Providers Name Role Phone Elsewhere, Pcp Primary Care Provider Unavailable Reason for Visit Reason Comments Pre-visit Intake Outpatient (Routine) - Closed Specialty Diagnoses / Procedures Referred By Contact Refer red To Contact Obstetrics and Diagnoses Incontinence Urinary Stress And Urge Rectocele Bud Orosco [facility] Gynecology Marjan Schmitt [address] [place] [phone] Referral ID Status Reason Start Date Expiration Date Visits Requ ested Visits Authorized [id number] Closed 03/24/2021 03/24/2022 1 1 Encounter Details Date Type Department Care Team Description 05/08/2021 Clinical Communication Visit Review in Bud Orosco Pre-visit Intake Marina Allison Jr., M.D. [address] [phone] Social History Tobacco Use Types Packs/Day Years Used Date Smoking Tobacco: Never Smokeless Tobacco: Never Sex Assigned at Date Recorded Not on file documented as of this encounter Plan of Treatment Not on filedocumented as of this encounter Visit Diagnoses Diagnosis Incontinence Urinary Stress And Urge Rectocele documented in this encounter Care Teams Mender Knit Goods Relationship Specialty Start Date End Date Elsewhere, Pcp PCP - General Family Medicine 05/08/21 documented as of this encounter
--- OUTSIDE RECORDS SUMMARY | 2022-07-07 08:06 | XMS_ITS | Encounter Summary ---
:[address] [facility] Address [address] [place] [address] Care Team Providers Name Role Phone Elsewhere, Pcp Primary Care Provider Unavailable Reason for Referral Physical Therapy (Routine) - Closed Specialty Diagnoses / Procedures Referred By Contact Refer red To Contact Diagnoses Overactive Bladder Urgency Urinary Symptom Urinary Urinary Urge Incontinence Ad Juarez M.D. [address] [place] [address] Referral ID Status Reason Start Date Expiration Visits Visits Date Requested Authorized [id number] Closed Patient 05/12/2021 05/12/2022 99 99 Preference Outpatient (Routine) - Closed Specialty Diagnoses / Procedures Referred By Contact Refer red To Contact Diagnoses Overactive Bladder Urgency Urinary Symptom Urinary Urinary Urge Incontinence Cystocele Ad Juarez M.D. [facility] Procedures UROGYN Cystoscopy [address] [place] [address] Referral ID Status Reason Start Date Expiration Date Visits Requ ested Visits Authorized [id number] Closed 05/12/2021 05/12/2022 1 1 Reason for Visit Outpatient (Routine) - Closed Specialty Diagnoses / Procedures Referred By Contact Refer red To Contact Obstetrics and Diagnoses Incontinence Urinary Stress And Urge Rectocele Bud Orosco [facility] Gynecology Marjan Schmitt [address] [place] [address] Referral ID Status Reason Start Date Expiration Date Visits Requ ested Visits Authorized [id number] Closed 03/24/2021 03/24/2022 1 1 Encounter Details Date Type Department Care Team Description 05/12/2021 Comprehensive Visit Department of Stefanie Juarez mai Bladder (Primary Dx); Obstetrics and Ad Calvo M.D. Urgency Urinary; Gynecology, Division [address] [facility] Symptom Urinary; of Urogynecology in [place], [place] Urinary Urge Incontinence; [place], [place] [address] [phone] [place], [place] (Work) [phone] Social History Tobacco Use Types Packs/Day Years [...] on filedocumented as of this encounter Results ID CYSTOURETHROSCOPY (05/12/2021 11:29 AM CDT) Narrative MMODAL [...] fellow participated in the procedure, and the financial analysis consultant was present for the entire procedure. Ad Juarez M.D. OB GYNE ORDERABLES Performing Organization Address City/State/ZIP Code Phon e Number MMODAL MMODAL NA documented in this encounter Visit Diagnoses Diagnosis Overactive Bladder - Primary Urgency Urinary Symptom Urinary Urinary Urge Incontinence Cystocele Overactive Bladder Urgency Urinary Symptom Urinary Urinary Urge Incontinence Cystocele documented in this encounter Care Teams Call Center Director Relationship Specialty Start Date End Date Elsewhere, Pcp PCP - General Family Medicine 05/08/21 documented as of this encounter
--- OUTSIDE RECORDS SUMMARY | 2022-07-07 08:06 | XMS_ITS | Encounter Summary ---
:1950 Author Organization [facility] Address [address] [place] [address] Care Team Providers Name Role Phone Unavailable Primary Care Provider Unavailable Reason for Visit Outpatient (Routine) - Closed Specialty Diagnoses / Procedures Referred By Contact Refer red To Contact Diagnoses Incontinence Urinary Stress Female Bud Orosco Jr., [facility] Procedures US Pelvis Transvaginal and Transabdominal US Pelvis Transvaginal and Transabdominal Doppler US Pelvis Transvaginal and Transabdominal M.D. [address] [place] [address] Referral ID Status Reason Start Date Expiration Date Visits Requ ested Visits Authorized [id number] Closed 02/17/2021 02/17/2022 1 1 Encounter Details Date Type Department Care Team Description 03/19/2021 Hospital Encounter Department of Bud Orosco inencmarlys Urinary Radiology in Marina Schmitt M.D. Stress Female Michelle, [address], [place] [address] [address] [place], [place] [phone] (Work) [phone] Social History Tobacco Use Types Packs/Day Years [...] negative pelvic ultrasound. Bud Orosco Jr., M.D. IMG US PROCEDURES documented in this encounter Visit Diagnoses Diagnosis Incontinence Urinary Stress Female documented in this encounter
--- OUTSIDE RECORDS SUMMARY | 2022-07-07 08:06 | XMS_ITS | Encounter Summary ---
:1950 Author Organization [facility] Address [address] [place] [address] Care Team Providers Name Role Phone Unavailable Primary Care Provider Unavailable Reason for Visit Reason Comments Urinary Problem COVID Nurse Line Encounter Details Date Type Department Care Team Description 02/03/2021 Nurse Triage Department of [facility] Monserrat Griffin, Ur inary Problem; COVID MedicineMichelle M.S., R.N. Nurse Line Clinic, in [address] [facility] [address] [place], [place] [phone] (Work) [phone] Social History Tobacco Use Types Packs/Day Years [...] within 24 hours. Patient was transferred to human resources operations coordinator to schedule an appointment. Reason for Disposition ? ? [1] Can't control passage of urine (i.e., urinary incontinence) AND [2] new onset (< 2 weeks)or worsening Protocols used: URINARY [id number] Care Advice Patient/Caregiver understands and will follow care advice?: Yes, able to teach back CALL BACK IF: * Fever occurs * Unable to urinate and bladder feels full * You become worse. CARE ADVICE given per Urinary Symptoms (Adult) guideline. COVID-19 Nurse Line Screening ASSESSMENT Region Select appropriate region: : [place] Age Pathway Select approprite pathway: : Adult [...] water are not available, use a hand head waitress -Avoid touching your eyes, nose and mouth. [...] care: Yes The following references were used: [facility] novel coronavirus (COVID- 19) resources Nursing judgement documented in this encounter Plan of Treatment Not on filedocumented as of this encounter Visit Diagnoses Not on filedocumented in this encounter
--- OUTSIDE RECORDS SUMMARY | 2022-07-07 08:06 | XMS_ITS | Encounter Summary ---
:1950 Author Organization [facility] Address [address] [place] [address] Care Team Providers Name Role Phone Unavailable Primary Care Provider Unavailable Reason for Referral Outpatient (Routine) - Closed Specialty Diagnoses / Procedures Referred By Contact Refer red To Contact Obstetrics and Diagnoses Incontinence Urinary Stress Female Bud Orosco [facility] Gynecology Marjan Schmitt [address] [place] [address] Referral ID Status Reason Start Date Expiration Date Visits Requ ested Visits Authorized [id number] Closed 02/17/2021 02/17/2022 1 1 Scheduling Instructions Schedule after pelvic ultrasound Reason for Visit Reason Comments Urinary Incontinence urinary incontinence and chel quency Appointment Request (Routine) - Closed Specialty Diagnoses / Procedures Referred By Contact Refer red To Contact Obstetrics and Gynecology Referral ID Status Reason Start Date Expiration Date Visits Requ ested Visits Authorized [id number] Closed 02/03/2021 02/03/2022 1 1 Encounter Details Date Type Department Care Team Description 02/17/2021 Comprehensive Visit Department of Bud Orosco Urinary Stress Female (Primary Dx); Obstetrics and Marina Schmitt M.D. 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 Attends Islam Services: ??? Active Member of Clubs or [...] in abdomen with pelvic exam.Please note that biomedical photographer, Ivette Suazo, was present as snath handle assembler for pelvic exam. Rectum: Deferred. Genitalia: External genitalia: Bartholin's, urethral, and Downing's glands within normal limits. Smallinclusion cyst on [...] management, would refer this to UroGyn in [place]. Probable candidate for anterior posterior appears plus [...] their behalf by Ivette Suazo, a trained biomedical photographer. The creation of this record is based onthe scribe's personal observations and the provider's statements to them. This document has been [facility] ked and approved by the attending provider. 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
--- OUTSIDE RECORDS SUMMARY | 2022-07-07 08:06 | XMS_ITS | Encounter Summary ---
:1950 Author Organization [facility] Address [address] [place] [address] Care Team Providers Name Role Phone Elsewhere, Pcp Primary Care Provider Unavailable Reason for Visit Outpatient (Routine) - Closed Specialty Diagnoses / Procedures Referred By Contact Refer red To Contact Diagnoses Incontinence Urinary Stress And Urge Ad Juarez M.D. [facility] Procedures OBG Urodynamic Studies [address] [place] [phone] Referral ID Status Reason Start Date Expiration Date Visits Requ ested Visits Authorized [id number] Closed 05/07/2021 05/07/2022 1 1 Encounter Details Date Type Department Care Team Description 05/12/2021 Procedure visit Department of Ad Juarez Urinary Obstetrics and Marjan Calvo Stress And Urge Gynecology, Division [address] [place] [address] (Primary Dx) of Urogynecology in [place], [place] [address] [place] [address] [place], [place] (Work) [address] [phone] Social History Tobacco Use Types Packs/Day Years [...] Name Priority Date/Time Associated Diagnosis Comme nts [place] OSMOLALITY ASSAY Routine 05/12/2021 9:45 Resul ts [...] procedure ar e in the results section. [place] UROFLOWMETRY SIMPLE Routine 05/12/2021 9:41 Incontinence Ur inary Results for this AM CDT Stress And Urge procedure ar e in the results section. [place] IRRI BLAD SMPL Routine 05/12/2021 9:41 Incontinence Urinary Results for this LAVAGE&/INSTILL AM CDT Stress And Urge procedure are in the results section. [place] STEPHANIE PST VOID RESID Routine 05/12/2021 9:41 Incontinence Ur inary Results for this US NON IMG AM CDT Stress And Urge procedure ar e in the results section. [place] CYSTOMETROGRAM Routine 05/12/2021 9:41 Incontinence Urinary Results for this SIMPLE AM CDT Stress And Urge procedure ar e in the results section. documented in this encounter Results (ABNORMAL) Dipstick, Urine (05/12/2021 9:45 AM CDT) [facility] gist Method Time Signature Hemoglobin, Trace (A) [...] M.D. LAB URINE ORDERABLES Performing Organization Address City/[facility] Phon e Number [facility] [address] [place] [address] [place] [address] Osmolality, Urine (05/12/2021 9:45 AM CDT) athologist Signature Osmolality, U 599 150 - 1150 05/12/2021 DTL mOsm/kg 1:25 PM CDT Specimen Anatomical Collection Method Collection Time Receive d Time (Source) Location / / Volume Laterality Urine 05/12/2021 9:45 AM 1 CDT 12:42 PM CDT Ad Juarez M.D. LAB URINE ORDERABLES Performing Organization Address City/[facility] Phon e Number [facility] - 200 [place], [place] [address] [place] [id number] [place] [address] pH, Random, Urine (05/12/2021 9:45 AM CDT) P athologist Signature pH, Random, U 5.2 4.5 - 8.0 05/12/2021 DTL 1:25 PM CDT Specimen Anatomical Collection Method Collection Time Receive d Time (Source) Location / / Volume Laterality Urine 05/12/2021 9:45 AM 1 CDT 12:42 PM CDT Ad Juarez M.D. LAB URINE ORDERABLES Performing Organization Address City/[facility] Phon e Number [facility] - [address] [place] [address] (ABNORMAL) Microscopic Manual (05/12/2021 9:45 AM [...] M.D. LAB URINE ORDERABLES Performing Organization Address City/[facility] Phon e Number [facility] - [address] [place] [address] [address] (ABNORMAL) Urinalysis with Microscopic: Urine, Catheter [...] Organization Address City/State/ZIP Code Phon e Number [facility] - [address] [place], [place] [address] [facility] [address] Laboratories-[facility] [address] (ABNORMAL) Bacterial Culture, Aerobic + Susc, Urine (05/12/2021 9:45 AM CDT) [facility] gist Method Time Signature Urine Culture ESCHERICHIA [...] (MCG/ML) Escherichia coli Cefepime SUSCEPTIBILITY, <=2 mcg/mL: Elisa ceptible ALMA (MCG/ML) Escherichia coli Cefazolin (Uncomplicated [...] Juarez M.D. LAB MICROBIOLOGY - GENERAL O RDERABLES Performing Organization Address City/State/ZIP Code Phon e Number [facility] - 200 [place], [place] [address] [place] [address] [place] [address] Laboratories-[facility] [address] [place] CYSTOMETROGRAM SIMPLE, [place] STEPHANIE PST VOID RESID US NON IMG, [place] IRRI BLAD SMPL LAVAGE&/INSTILL, [place] UROFLOWMETRY SIMPLE (05/12/2021 9:41 AM CDT) Narrative [...] rimary documented in this encounter Care Teams Heel Gouger Relationship Specialty Start Date End Date Elsewhere, Pcp PCP - General Family Medicine 05/08/21 documented as of this encounter
--- OUTSIDE RECORDS SUMMARY | 2022-07-07 08:06 | XMS_ITS | Encounter Summary ---
:1950 Author Organization [facility] Address [address] [place] [address] Care Team Providers Name Role Phone Unavailable Primary Care Provider Unavailable Reason for Referral Outpatient (Routine) - Closed Specialty Diagnoses / Procedures Referred By Contact Refer red To Contact Obstetrics and Diagnoses Incontinence Urinary Stress And Urge Rectocele Bud Orosco [facility] Alycia Schmitt M.D. [address] [place] [phone] Referral ID Status Reason Start Date Expiration Date Visits Requ ested Visits Authorized [id number] Closed 03/24/2021 03/24/2022 1 1 Reason for Visit Reason Comments Follow-up Outpatient (Routine) - Closed Specialty Diagnoses / Procedures Referred By Contact Refer red To Contact Obstetrics and Diagnoses Incontinence Urinary Stress Female Bud Orosco [facility] Alycia Schmitt M.D. [address] [place] [phone] Referral ID Status Reason Start Date Expiration Date Visits Requ ested Visits Authorized [id number] Closed 02/17/2021 02/17/2022 1 1 Encounter Details Date Type Department Care Team Description 03/24/2021 Office Visit Department of Bud Orosco Rectocele (Primary Dx); Obstetrics and Marjan Schmitt Incontinence Urinary Stress And Urge Gynecology in [address] [place], [place] TIARRA Philip [address] [address] [address] [place] [phone] [address] (Work) [phone] Social History Tobacco Use Types Packs/Day Years [...] will have her meet with UroGyn in [place] to discuss ??? Morbid Obesity Body Mass [...] will have her meet with UroGyn in [place] to discuss potential surgery. Orders: - Obstetrics and Gynecology office visit (clinic) #2 Followup PLAN: Patient will contact the clinic with questions or concerns prior to this time. This document serves as a record of services personally performed by Bud Orosco MD. It was created on their behalf by Ivette Suazo, a trained medical dir. The creation of this record is based onthe scribe's personal observations and the provider's statements to them. This document has been [facility] ked and approved by the attending provider. [...]
--- OUTSIDE RECORDS SUMMARY | 2022-07-07 08:06 | XMS_ITS | Encounter Summary ---
:1950 Author Organization [facility] Address [address] [place] [address] Care Team Providers Name Role Phone Unavailable Primary Care Provider Unavailable Reason for Referral Outpatient (Routine) - Closed Specialty Diagnoses / Procedures Referred By Contact Refer red To Contact Endocrinology Diagnoses Morbid Obesity Body Mass Index 45.0-49.9 Adult ([facility]) Nai Law M.D. [address] [address] Referral ID Status Reason Start Date Expiration Date Visits Requ ested Visits Authorized [id number] Closed 03/25/2021 03/25/2022 1 1 Encounter Details Date Type Department Care Team Description 03/24/2021 [facility] Nai Law Morbid Obesity Body AND CLINICS Marjan Barnett Mass Index 45.0-49.9 1999 [facility] Adult ([facility]) (Primary [place], [place] Dx) [phone] Social History Tobacco Use Types Packs/Day Years [...]
--- OUTSIDE RECORDS SUMMARY | 2022-07-07 08:06 | XMS_ITS | Encounter Summary ---
:1950 Author Organization [facility] Address [address] [place] [address] Care Team Providers Name Role Phone Elsewhere, Pcp Primary Care Provider Unavailable Encounter Details Date Type Department Care Team Description 05/14/2021 Clinical Communication Department of Helene, Obstetrics and Monserrat Balderrama M.D. Gynecology, Division of [facility] [address] [facility] Urogynecology in [place], [place] [address] [place] [address] [place], [place] (Work) [address] [phone] Social History Tobacco Use Types Packs/Day Years [...] on filedocumented in this encounter Care Teams Cell Phone Repair Technician Relationship Specialty Start Date End Date Elsewhere, Pcp PCP - General Family Medicine 05/08/21 documented as of this encounter
--- OUTSIDE RECORDS SUMMARY | 2022-07-07 08:06 | XMS_ITS | Encounter Summary ---
:1950 Author Organization [facility] Address [address] [place] [address] Care Team Providers Name Role Phone Unavailable Primary Care Provider Unavailable Encounter Details Date Type Department Care Team Description 04/10/2020 Hospital Encounter Department of Cale Douglas Cardiovascular Diseases Flex Driver, Ch.B., in [facility] Ph.D. [address] [facility] [address] [place] [address] [phone] (Wo rk) Social History Tobacco Use Types [...] Component Value Ref Test Analysis Performed At [facility] gist Range Method Time Signature Date Time [facility] Interrogation +0000 LAB SYSTEM Session Implantable Medtronic CloudPassage Pulse Generator LAB SYSTEM Cupola Melter Helper Implantable LNQ11 Reveal [facility] Pulse Generator LINQ LAB SYSTEM Model Implantable [id number] FOUNDATION Pulse Generator LAB SYSTEM Serial Number Type Remote [facility] Interrogation LAB SYSTEM Session Clinic Name ECG Event - [facility] LAB SYSTEM [place] Implantable Implantable FOUNDATION Pulse Generator Diagnostic LAB SYSTEM Type Monitor Implantable [id number] [facility] Pulse Generator LAB SYSTEM Implant Date [...] No ectopy was note d. *BATTERY STATUS: *HUMAN RESOURCES ANALYST since 25-FEB-2020, patient was notified. *EPISODES: * [...]
--- OUTSIDE RECORDS SUMMARY | 2022-07-07 08:06 | XMS_ITS | Encounter Summary ---
:1950 Author Organization [facility] Address [address] [place] [address] Care Team Providers Name Role Phone Elsewhere, Pcp Primary Care Provider Unavailable Reason for Visit Outpatient (Routine) - Closed Specialty Diagnoses / Procedures Referred By Contact Refer red To Contact Diagnoses Overactive Bladder Urgency Urinary Symptom Urinary Urinary Urge Incontinence Cystocele Ad Juarez M.D. [facility] Procedures UROGYN Cystoscopy [address] [place] [address] Referral ID Status Reason Start Date Expiration Date Visits Requ ested Visits Authorized [id number] Closed 05/12/2021 05/12/2022 1 1 Encounter Details Date Type Department Care Team Description 05/12/2021 Procedure visit Department of Ad Juarez Overact mai Bladder; Obstetrics and Marjan Calvo Urgency Urinary; Gynecology, Division [address] [place] [address] Symptom Urinary; of Urogynecology in [place], [place] Urinary Urge Incontinence; [place], [place] [address] Cystocele [address] [facility] [phone] [place], [place] (Work) [address] [phone] Social History Tobacco Use Types Packs/Day Years [...] fellow participated in the procedure, and the sap solution manager consultant was present for the entire procedure. [place] Exam Amb documented in this encounter Plan of Treatment Not on filedocumented as of this encounter Procedures Procedure Name Priority Date/Time Associated Comments Diagnosis [place] CYSTOURETHROSCOPY Routine 05/12/2021 11:29 Overactive Bladder Results for this AM CDT Urgency Urinary procedure are in Symptom Urinary the results Urinary Urge section. Incontinence Cystocele documented in this encounter Results [place] CYSTOURETHROSCOPY (05/12/2021 11:29 AM CDT) Narrative MMODAL [...] fellow participated in the procedure, and the sap solution manager consultant was present for the entire procedure. Ad Juarez M.D. OB GYNE ORDERABLES Performing Organization Address City/State/ZIP Code Phon e Number MMODAL MMODAL NA documented in this encounter Visit Diagnoses Diagnosis Overactive Bladder Urgency Urinary Symptom Urinary Urinary Urge Incontinence Cystocele documented in this encounter Care Teams Bottle Feeder Relationship Specialty Start Date End Date Elsewhere, Pcp PCP - General Family Medicine 05/08/21 documented as of this encounter
--- OUTSIDE RECORDS SUMMARY | 2022-07-07 08:06 | XMS_ITS | Encounter Summary ---
:1950 Author Organization [facility] Address [address] [place] [address] Care Team Providers Name Role Phone Unavailable Primary Care Provider Unavailable Reason for Visit Reason Comments Appointment Encounter Details Date Type Department Care Team Description 03/05/2021 Clinical Communication Department of Family Unassigned , Pcp Appointment Medicine, [facility], in [place], [place] [address], [place] [address] [facility] [phone] Social History Tobacco Use Types Packs/Day Years [...] The following references were used: harmony Martinez, medical laboratory technologist Telephone Encounter - Rylee Walls - 03/05/2021 [...]
--- OUTSIDE RECORDS SUMMARY | 2022-07-07 08:06 | XMS_ITS | Encounter Summary ---
:1950 Author Organization [facility] Address [address] [place] [address] Care Team Providers Name Role Phone Elsewhere, Pcp Primary Care Provider Unavailable Encounter Details Date Type Department Care Team Description 05/13/2021 Orders Only Department of Obstetrics and [facility], Stephon Balderrama, Gynecology, Division of M.D. Urogynecology in [address] [place] [address] [place] [address] [phone] Social History Tobacco Use Types Packs/Day Years Used Date Smoking Tobacco: Never Smokeless Tobacco: Never Sex Assigned at Date Recorded Not on file documented as of this encounter Plan of Treatment Not on filedocumented as of this encounter Visit Diagnoses Not on filedocumented in this encounter Care Teams Glass Sagger Relationship Specialty Start Date End Date Elsewhere, Pcp PCP - General Family Medicine 05/08/21 documented as of this encounter
--- OUTSIDE RECORDS SUMMARY | 2022-07-07 08:06 | XMS_ITS | Encounter Summary ---
:1950 Author Organization [facility] Address [address] [place] [address] Care Team Providers Name Role Phone Unavailable Primary Care Provider Unavailable Encounter Details Date Type Department Care Team Description 03/26/2021 Clinical Communication Department of Bud Orosco Obstetrics and Marjan Schmitt Gynecology in [address] [place], [place] 200 [facility] [address] [place], [place] [phone] [address] (Work) [phone] Social History Tobacco Use Types Packs/Day Years [...]
--- OUTSIDE RECORDS SUMMARY | 2022-07-07 08:07 | XMS_ITS | Encounter Summary ---
:1950 Author Organization [facility] Address [address] [place] [address] Care Team Providers Name Role Phone Unavailable Primary Care Provider Unavailable Encounter Details Date Type Department Care Team Description 01/18/2019 Hospital Encounter Department of Bud Saleh Pal pitations Cardiovascular Diseases Marjan in [facility] [address] [facility] [address] [place] [address] [phone] Social History Tobacco Use Types Packs/Day Years [...] Component Value Ref Test Analysis Performed At [facility] Range Method Time Signature Date Time [id number] FOUNDATION Interrogation +0000 LAB SYSTEM Session Implantable Medtronic FOUNDATION Pulse Generator LAB SYSTEM [place] Food Server Implantable LNQ11 Reveal FOUNDATION Pulse Generator LINQ LAB SYSTEM Model Implantable [id number] FOUNDATION Pulse Generator LAB SYSTEM Serial Number Type Remote [facility] Interrogation LAB SYSTEM Session Clinic Name ECG Event - [facility] LAB SYSTEM [place] Implantable Implantable FOUNDATION Pulse Generator Diagnostic LAB [...]
--- OUTSIDE RECORDS SUMMARY | 2022-07-07 08:07 | XMS_ITS | Encounter Summary ---
:1950 Author Organization [facility] Address [address] [place] [address] Care Team Providers Name Role Phone Unavailable Primary Care Provider Unavailable Encounter Details Date Type Department Care Team Description 09/13/2018 Hospital Encounter Department of Mariaa Lopez Pa lpitations Cardiovascular Diseases Marjan, M. B.A. in [facility] [address] [place] [address] [place] [address] [phone] Social History Tobacco Use Types Packs/Day Years [...] fo r this REMOTE FOLLOW UP AM SENIOR CONTRACTS MANAGER procedure a re in the results section. documented in this encounter Results LOOP RECORDER REMOTE FOLLOW UP (09/13/2018 11:54 AM SENIOR CONTRACTS MANAGER) Component Value Ref Test Analysis Performed At [facility] Range Method Time Signature Date Time [id number] FOUNDATION Interrogation +0000 LAB SYSTEM Session Implantable Medtronic FOUNDATION Pulse Generator LAB SYSTEM Account Representative Implantable LNQ11 Reveal FOUNDATION Pulse Generator LINQ LAB SYSTEM Model Implantable [id number] FOUNDATION Pulse Generator LAB SYSTEM Serial Number Type Remote [facility] Interrogation LAB SYSTEM Session Clinic Name ECG Event - [facility] LAB SYSTEM [place] Implantable Implantable FOUNDATION Pulse Generator Diagnostic LAB SYSTEM Type Monitor Implantable [id number] FOUNDATION Pulse Generator LAB SYSTEM Implant Date Anatomical Region Laterality Modality Other Specimen (Source) Anatomical Collection Method Collection Time Re ceived Time Location / / Volume Laterality 09/09/2018 4:22 AM SENIOR CONTRACTS MANAGER Narrative 09/19/2018 12:35 PM SENIOR CONTRACTS MANAGER *PURPOSE OF ENCOUNTER: * Summary transmission is [...]
--- OUTSIDE RECORDS SUMMARY | 2022-07-07 08:07 | XMS_ITS | Encounter Summary ---
:1950 Author Organization [facility] Address [address] [place] [address] Care Team Providers Name Role Phone Unavailable Primary Care Provider Unavailable Encounter Details Date Type Department Care Team Description 07/27/2019 Hospital Encounter Department of Mariaa Lopez Pa lpitations Cardiovascular Diseases Marjan, M. B.A. in [facility] [address] [place] [address] [place] [address] [phone] Social History Tobacco Use Types Packs/Day Years [...] fo r this REMOTE FOLLOW UP AM CALL CIRCUIT WORKER procedure a re in the results section. documented in this encounter Results LOOP RECORDER REMOTE FOLLOW UP (07/27/2019 11:22 AM CALL CIRCUIT WORKER) Component Value Ref Test Analysis Performed At [facility] Range Method Time Signature Date Time [id number] FOUNDATION Interrogation +0000 LAB SYSTEM Session Implantable Medtronic FOUNDATION Pulse Generator LAB SYSTEM Make Up [place] Implantable LNQ11 Reveal FOUNDATION Pulse Generator LINQ LAB SYSTEM Model Implantable [id number] FOUNDATION Pulse Generator LAB SYSTEM Serial Number Type Remote [facility] Interrogation LAB SYSTEM Session Clinic Name ECG Event - [facility] LAB SYSTEM [place] Implantable Implantable FOUNDATION Pulse Generator Diagnostic LAB SYSTEM Type Monitor Implantable [id number] FOUNDATION Pulse Generator LAB SYSTEM Implant Date Anatomical Region Laterality Modality Other Specimen (Source) Anatomical Collection Method Collection Time Re ceived Time Location / / Volume Laterality 07/27/2019 10:35 AM CALL CIRCUIT WORKER Narrative 08/02/2019 5:59 PM CALL CIRCUIT WORKER *PURPOSE OF ENCOUNTER: * Summary transmission [...]
--- OUTSIDE RECORDS SUMMARY | 2022-07-07 08:07 | XMS_ITS | Encounter Summary ---
:1950 Author Organization [facility] Address [address] [place] [address] Care Team Providers Name Role Phone Unavailable Primary Care Provider Unavailable Encounter Details Date Type Department Care Team Description 10/01/2019 Hospital Encounter Department of Pernell Weston Cardiovascular Diseases Marjan Driver in [facility] [address] [facility] [address] [place] [address] [phone] Social History Tobacco Use Types Packs/Day Years [...] Palpitations Results for this REMOTE FOLLOW UP BASKET FILLER procedure a re in the results section. documented in this encounter Results LOOP RECORDER REMOTE FOLLOW UP (10/01/2019 3:41 PM BASKET FILLER) Component Value Ref Test Analysis Performed At [facility] Range Method Time Signature Date Time [id number] FOUNDATION Interrogation +0000 LAB SYSTEM Session Implantable Medtronic FOUNDATION Pulse Generator LAB SYSTEM Vault Mechanic Implantable LNQ11 Reveal FOUNDATION Pulse Generator LINQ LAB SYSTEM Model Implantable [id number] FOUNDATION Pulse Generator LAB SYSTEM Serial Number Type Remote FOUNDATION Interrogation LAB SYSTEM Session Clinic Name ECG Event - [facility] LAB SYSTEM [place] Implantable Implantable FOUNDATION Pulse Generator Diagnostic LAB SYSTEM Type Monitor Implantable [id number] FOUNDATION Pulse Generator LAB SYSTEM Implant Date Anatomical Region Laterality Modality Other Specimen (Source) Anatomical Collection Method Collection Time Re ceived Time Location / / Volume Laterality 09/29/2019 11:40 AM BASKET FILLER Narrative 10/02/2019 12:36 PM BASKET FILLER *PURPOSE OF ENCOUNTER: * Summary transmission is [...]
--- OUTSIDE RECORDS SUMMARY | 2022-07-07 08:07 | XMS_ITS | Encounter Summary ---
:1950 Author Organization [facility] Address [address] [place] [address] Care Team Providers Name Role Phone Unavailable Primary Care Provider Unavailable Encounter Details Date Type Department Care Team Description 02/27/2018 Hospital Encounter Department of Pernell Weston Cardiovascular Diseases Marjan Driver in [facility] [address] [facility] [address] [place] [address] [phone] Social History Tobacco Use Types Packs/Day Years [...] Component Value Ref Test Analysis Performed At [facility] Range Method Time Signature Date Time [id number] FOUNDATION Interrogation +0000 LAB SYSTEM Session Implantable Medtronic FOUNDATION Pulse Generator LAB SYSTEM Ice Guard Inspector Implantable LNQ11 Reveal FOUNDATION Pulse Generator LINQ LAB SYSTEM Model Implantable [id number] FOUNDATION Pulse Generator LAB SYSTEM Serial Number Type Remote [facility] Interrogation LAB SYSTEM Session Clinic Name ECG Event - [facility] LAB SYSTEM [place] Implantable Implantable FOUNDATION Pulse Generator Diagnostic LAB SYSTEM Type Monitor Implantable [id number] [facility] Pulse Generator LAB SYSTEM Implant Date Anatomical [...] Pernell Weston M.D. CV IMPLANTABLE CARDIAC DEVIC Anibal documented in this encounter Visit Diagnoses Diagnosis Palpitations documented in this encounter
--- OUTSIDE RECORDS SUMMARY | 2022-07-07 08:07 | XMS_ITS | Encounter Summary ---
:1950 Author Organization [facility] Address [address] [place] [address] Care Team Providers Name Role Phone Unavailable Primary Care Provider Unavailable Encounter Details Date Type Department Care Team Description 06/06/2018 Hospital Encounter Department of Alexis Ledezma, Palp itations Cardiovascular Diseases in M.D., M.P.H. [place], [place] [address] [facility] [address] [place] [address] [phone] Social History Tobacco Use Types Packs/Day Years [...] Value Ref Test Analysis Performed At [facility] gist Range Method Time Signature Date Time [id number] [facility]OUNDATION Interrogation +0000 LAB SYSTEM Session Implantable Medtronic Tetra Discovery Pulse Generator LAB SYSTEM Concrete Truck Driver Implantable LNQ11 Reveal FOUNDATION Pulse Generator LINQ LAB SYSTEM Model Implantable [id number] [facility]ATION Pulse Generator LAB SYSTEM Serial Number Type Remote [facility] Interrogation LAB SYSTEM Session Clinic Name ECG Event - [facility] LAB SYSTEM [place] Implantable Implantable FOUNDATION Pulse Generator Diagnostic LAB [...]
--- OUTSIDE RECORDS SUMMARY | 2022-07-07 08:07 | XMS_ITS | Encounter Summary ---
:1950 Author Organization [facility] Address [address] [place] [address] Care Team Providers Name Role Phone Unavailable Primary Care Provider Unavailable Encounter Details Date Type Department Care Team Description 02/24/2018 Hospital Encounter Department of Ani, Stenosis Aortic Valve Acquired; Radiology, Akhil Tena M.D. Shortness O f Breath; Building, in Dyspnea On Exer tion [place], [place] [address] [place] [address] Social History Tobacco Use Types Packs/Day Years Used Date Smoking Tobacco: Never Sex Assigned at Date Recorded Not on file documented as of this encounter Medications at Time of Discharge Medication Sig Dispensed Refills Start Date End Date atenolol (TENORMIN) 50 mg Take 1 tablet by 0 03/0 01/2017 tablet mouth daily. levothyroxine (SYNTHROID, Take [...] distal ICA in accordance with Nor th [place] Symptomatic Carotid Endarterectomy Trial (NASCET). Procedure Note [...] distal ICA in accordance with Nor th [place] Symptomatic Carotid Endarterectomy Trial (NASCET). IMPRESSION: 1. [...]
--- OUTSIDE RECORDS SUMMARY | 2022-07-07 08:07 | XMS_ITS | Encounter Summary ---
:1950 Author Organization [facility] Address [address] [place] [address] Care Team Providers Name Role Phone Unavailable Primary Care Provider Unavailable Encounter Details Date Type Department Care Team Description 08/09/2018 Hospital Encounter Department of Emmanuel Mclaughlin lpitations Cardiovascular Diseases Flex DriverB .S. in [facility] [address] [facility] [address] [place] [address] [phone] Social History Tobacco Use Types Packs/Day Years [...] Palpitations Results for this REMOTE FOLLOW UP GRADE TEACHER procedure a re in the results section. documented in this encounter Results LOOP RECORDER REMOTE FOLLOW UP (08/09/2018 1:08 PM GRADE TEACHER) Component Value Ref Test Analysis Performed At [facility] gist Range Method Time Signature Date Time [id number] [facility]ATION Interrogation +0000 LAB SYSTEM Session Implantable Medtronic FOUNDATION Pulse Generator LAB SYSTEM Granulator Implantable LNQ11 Reveal [facility]OUNDATION Pulse Generator LINQ LAB SYSTEM Model Implantable [id number] FOUNDATION Pulse Generator LAB SYSTEM Serial Number Type Remote [facility] Interrogation LAB SYSTEM Session Clinic Name ECG Event - [facility] LAB SYSTEM [place] Implantable Implantable FOUNDATION Pulse Generator Diagnostic LAB SYSTEM Type Monitor Implantable [id number] [facility] Pulse Generator LAB SYSTEM Implant Date Anatomical Region Laterality Modality Other Specimen (Source) Anatomical Collection Method Collection Time Re ceived Time Location / / Volume Laterality 08/06/2018 6:37 AM GRADE TEACHER Narrative 08/10/2018 4:24 PM GRADE TEACHER *PURPOSE OF ENCOUNTER: * Summary transmission is [...]
--- OUTSIDE RECORDS SUMMARY | 2022-07-07 08:07 | XMS_ITS | Encounter Summary ---
:1950 Author Organization [facility] Address [address] [place] [address] Care Team Providers Name Role Phone Unavailable Primary Care Provider Unavailable Encounter Details Date Type Department Care Team Description 03/31/2018 Hospital Encounter Department of Mariaa Lopez Pa lpitations Cardiovascular Diseases Marjan, M. B.A. in [facility] [address] [place] [address] [place] [address] [phone] Social History Tobacco Use Types Packs/Day Years [...] Component Value Ref Test Analysis Performed At [facility] Range Method Time Signature Date Time [id number] [facility] Interrogation +0000 LAB SYSTEM Session Implantable Medtronic CreativeLive Pulse Generator LAB SYSTEM Auto Clutch Rebuilder Implantable LNQ11 Reveal [facility] Pulse Generator LINQ LAB SYSTEM Model Implantable [id number] [facility] Pulse Generator LAB SYSTEM Serial Number Type Remote [facility] Interrogation LAB SYSTEM Session Clinic Name ECG Event - [facility] LAB SYSTEM [place] Implantable Implantable [facility]OUNDATION Pulse Generator Diagnostic LAB SYSTEM Type Monitor Implantable [id number] [facility] Pulse Generator LAB SYSTEM Implant Date [...]
--- OUTSIDE RECORDS SUMMARY | 2022-07-07 08:07 | XMS_ITS | Encounter Summary ---
:1950 Author Organization [facility] Address [address] [place] [address] Care Team Providers Name Role Phone Unavailable Primary Care Provider Unavailable Encounter Details Date Type Department Care Team Description 01/04/2020 Hospital Encounter Department of Emmanuel Mclaughlin lpitations Cardiovascular Diseases Flex DrivreB .S. in [facility] [address] [facility] [address] [place] [address] [phone] Social History Tobacco Use Types Packs/Day Years [...] Component Value Ref Test Analysis Performed At [facility] gist Range Method Time Signature Date Time [id number] [facility] Interrogation +0000 LAB SYSTEM Session Implantable Medtronic [place] [employer] Pulse Generator LAB SYSTEM Buckle Stapler Implantable LNQ11 Reveal [facility] Pulse Generator LINQ LAB SYSTEM Model Implantable [id number] [facility] Pulse Generator LAB SYSTEM Serial Number Type Remote [facility] Interrogation LAB SYSTEM Session Clinic Name ECG Event - [facility] LAB SYSTEM [place] Implantable Implantable FOUNDATION Pulse Generator Diagnostic LAB SYSTEM Type Monitor Implantable [id number] [facility] Pulse Generator LAB SYSTEM Implant Date Anatomical [...]
--- OUTSIDE RECORDS SUMMARY | 2022-07-07 08:07 | XMS_ITS | Encounter Summary ---
:1950 Author Organization [facility] Address [address] [place] [address] Care Team Providers Name Role Phone Unavailable Primary Care Provider Unavailable Encounter Details Date Type Department Care Team Description 12/03/2019 Hospital Encounter Department of [place], Palpitat ions Cardiovascular Diseases in Vic Acevedo M.D. [place], [place] [address] [facility] [address] [place] [address] [phone] Social History Tobacco Use Types Packs/Day Years [...] Component Value Ref Test Analysis Performed At [facility] Range Method Time Signature Date Time [id number] [facility]ATION Interrogation +0000 LAB SYSTEM Session Implantable Medtronic [facility]OUNDATION Pulse Generator LAB SYSTEM Manager Payroll Implantable LNQ11 Reveal FOUNDATION Pulse Generator LINQ LAB SYSTEM Model Implantable [id number] [facility]OUNDATION Pulse Generator LAB SYSTEM Serial Number Type Remote [facility] Interrogation LAB SYSTEM Session Clinic Name ECG Event - [facility] LAB SYSTEM [place] Implantable Implantable FOUNDATION Pulse Generator Diagnostic LAB [...]
--- OUTSIDE RECORDS SUMMARY | 2022-07-07 08:07 | XMS_ITS | Encounter Summary ---
:1950 Author Organization [facility] Address [address] [place] [address] Care Team Providers Name Role Phone Unavailable Primary Care Provider Unavailable Encounter Details Date Type Department Care Team Description 04/24/2019 Hospital Encounter Department of [place]irv[place], Palpitat ions Cardiovascular Diseases Derian Driver M.D. in [facility] 200 [facility] [address] [place] [address] [phone] Social History Tobacco Use Types Packs/Day Years [...] Performed At [facility] Range Method Time Signature Date Time [id number] [facility] Interrogation +0000 LAB SYSTEM Session Implantable Medtronic [facility]OUNDATION Pulse Generator LAB SYSTEM Pond Supervisor Implantable LNQ11 Reveal FOUNDATION Pulse Generator LINQ LAB SYSTEM Model Implantable [id number] [facility] Pulse Generator LAB SYSTEM Serial Number Type Remote [facility] Interrogation LAB SYSTEM Session Clinic Name ECG Event - [facility] LAB SYSTEM [place] Implantable Implantable FOUNDATION Pulse Generator Diagnostic LAB [...]
--- OUTSIDE RECORDS SUMMARY | 2022-07-07 08:07 | XMS_ITS | Encounter Summary ---
:1950 Author Organization [facility] Address [address] [place] [address] Care Team Providers Name Role Phone Unavailable Primary Care Provider Unavailable Encounter Details Date Type Department Care Team Description 02/06/2020 Hospital Encounter Department of Cale Douglas Cardiovascular Diseases Flex Driver, Ch.B., in [facility] Ph.D. [address] [facility] [address] [place] [address] [phone] (Wo rk) Social History Tobacco Use Types [...] Test Analysis Performed At [facility] gist Range Method Time Signature Date Time [id number] [facility] Interrogation +0000 LAB SYSTEM Session Implantable Medtronic MoSync Pulse Generator LAB SYSTEM Cash Processing Specialist Implantable LNQ11 Reveal [facility] Pulse Generator LINQ LAB SYSTEM Model Implantable [id number] [facility] Pulse Generator LAB SYSTEM Serial Number Type Remote [facility] Interrogation LAB SYSTEM Session Clinic Name ECG Event - [facility] LAB SYSTEM [place] Implantable Implantable FOUNDATION Pulse Generator Diagnostic LAB SYSTEM Type Monitor Implantable [id number] [facility] Pulse Generator LAB SYSTEM Implant Date Anatomical Region Laterality Modality Other Specimen (Source) Anatomical Collection Method Collection Time Re ceived Time Location / / Volume Laterality 02/06/2020 5:43 AM CDT Narrative 02/07/2020 7:30 AM CDT *PURPOSE OF ENCOUNTER: * Summary transmission is received from Tweet Category implantable loop recorder. *PRESENTING ECG: * Sinus [...]
--- OUTSIDE RECORDS SUMMARY | 2022-07-07 08:07 | XMS_ITS | Encounter Summary ---
:1950 Author Organization [facility] Address [address] [place] [address] Care Team Providers Name Role Phone Unavailable Primary Care Provider Unavailable Reason for Visit Reason Comments Follow-up Appointment Request (Routine) - Closed Specialty Diagnoses / Procedures Referred By Contact Refer red To Contact Cardiovascular Disease Referral ID Status Reason Start Date Expiration Date Visits Requ ested Visits Authorized [id number] Closed 01/11/2018 07/10/2018 1 1 Encounter Details Date Type Department Care Team Description 02/27/2018 Office Visit Department of Ani, Stenosis Aorti c Valve Acquired (Primary Dx); Cardiovascular Medicine Marjan Tena Palp itations; in [facility] malina Hyperlipidemia; [address] [facility] [place] [address] Social History Tobacco Use Types Packs/Day [...] PRESENT ILLNESS Dinah Thorne is here for contracts paralegal assessment prior to consultation with Dr. Law. [...] the near future. Family history- father of [place] at 61; he was diabetic. One uncle of [place] at 39, and her sisterhad a CVA in her 50's. Obesity- BMI 47. She has been exercising on the [employer] for 30 minutes 6-7 days per week. She is discouraged as she has not lost any weight. Our bending machine operator will visit with her. I recommended seeing a solutions architect either here or at home for guidance. [...] a 67 y.o. female who is at [facility] Cardiovascular Medicine for her mod.aortic stenosis I [...]
--- OUTSIDE RECORDS SUMMARY | 2022-07-07 08:07 | XMS_ITS | Encounter Summary ---
:1950 Author Organization [facility] Address [address] [place] [address] Care Team Providers Name Role Phone Unavailable Primary Care Provider Unavailable Encounter Details Date Type Department Care Team Description 10/31/2019 Hospital Encounter Department of Manuel, Palpitat ions Cardiovascular Diseases Cale Ignacio in [facility] malina Phillip, Ph.D. [address] [facility] [address] [place] [phone] (Wo rk) Social History Tobacco Use Types [...] Component Value Ref Test Analysis Performed At [facility] Range Method Time Signature Date Time [id number] [facility] Interrogation +0000 LAB SYSTEM Session Implantable Medtronic Plei Pulse Generator LAB SYSTEM Network Engineer Administrator Implantable LNQ11 Reveal [facility] Pulse Generator LINQ LAB SYSTEM Model Implantable [id number] FOUNDATION Pulse Generator LAB SYSTEM Serial Number Type Remote [facility] Interrogation LAB SYSTEM Session Clinic Name ECG Event - [facility] LAB SYSTEM [place] Implantable Implantable FOUNDATION Pulse Generator Diagnostic LAB [...]
--- OUTSIDE RECORDS SUMMARY | 2022-07-07 08:07 | XMS_ITS | Encounter Summary ---
:1950 Author Organization [facility] Address [address] [place] [address] Care Team Providers Name Role Phone Unavailable Primary Care Provider Unavailable Encounter Details Date Type Department Care Team Description 02/20/2019 Hospital Encounter Department of Brooke Mcconnell Palpi tations Cardiovascular Diseases in M.B.B .S. [place], [place] [address] [facility] [address] [place] [address] [phone] Social History Tobacco Use Types Packs/Day Years [...] Component Value Ref Test Analysis Performed At [facility] Range Method Time Signature Date Time [id number] [facility] Interrogation +0000 LAB SYSTEM Session Implantable [facility] Pulse Generator LAB SYSTEM Senior Storage Administrator Implantable LNQ11 Reveal FOUNDATION Pulse Generator LINQ LAB SYSTEM Model Implantable [id number] [facility]OUNDATION Pulse Generator LAB SYSTEM Serial Number Type Remote [facility]OUNDATION Interrogation LAB SYSTEM Session Clinic Name ECG Event - [facility] LAB SYSTEM [place] Implantable Implantable FOUNDATION Pulse Generator Diagnostic LAB SYSTEM Type Monitor Implantable [id number] [facility]OUND[facility] Pulse Generator LAB SYSTEM Implant Date [...]
--- OUTSIDE RECORDS SUMMARY | 2022-07-07 08:07 | XMS_ITS | Encounter Summary ---
:1950 Author Organization [facility] Address [address] [place] [address] Care Team Providers Name Role Phone Unavailable Primary Care Provider Unavailable Encounter Details Date Type Department Care Team Description 11/14/2018 Hospital Encounter Department of Mariaa Lopez Pa lpitations Cardiovascular Diseases Marjan, M. B.A. in [facility] [address] [place] [address] [place] [address] [phone] Social History Tobacco Use Types Packs/Day Years [...] Component Value Ref Test Analysis Performed At [facility] gist Range Method Time Signature Date Time [id number] [facility]ATION Interrogation +0000 LAB SYSTEM Session Implantable [employer] Pulse Generator LAB SYSTEM Latin Professor Implantable LNQ11 Reveal FOUNDATION Pulse Generator LINQ LAB SYSTEM Model Implantable [id number] [facility]OUND[facility] Pulse Generator LAB SYSTEM Serial Number Type Remote [facility] Interrogation LAB SYSTEM Session Clinic Name ECG Event - [facility] LAB SYSTEM [place] Implantable Implantable FOUNDATION Pulse Generator Diagnostic LAB SYSTEM Type Monitor Implantable [id number] [facility] Pulse Generator LAB SYSTEM Implant Date Anatomical [...]
--- OUTSIDE RECORDS SUMMARY | 2022-07-07 08:07 | XMS_ITS | Encounter Summary ---
:1950 Author Organization [facility] Address [address] [place] [address] Care Team Providers Name Role Phone Unavailable Primary Care Provider Unavailable Encounter Details Date Type Department Care Team Description 12/15/2018 Hospital Encounter Department of Mariaa Lopez Pa lpitations Cardiovascular Diseases Marjan, M. B.A. in [facility] [address] [place] [address] [place] [address] [phone] Social History Tobacco Use Types Packs/Day Years [...] Component Value Ref Test Analysis Performed At [facility] Range Method Time Signature Date Time [id number] [facility] Interrogation +0000 LAB SYSTEM Session Implantable MedWireless Safety Pulse Generator LAB SYSTEM Tool Maker Bench Implantable LNQ11 Reveal [facility] Pulse Generator LINQ LAB SYSTEM Model Implantable [id number] [facility] Pulse Generator LAB SYSTEM Serial Number Type Remote [facility] Interrogation LAB SYSTEM Session Clinic Name ECG Event - [facility] LAB SYSTEM [place] Implantable Implantable FOUNDATION Pulse Generator Diagnostic LAB [...] between 50-100 bpm. ?? *INTERPRETING TECH: * Miguel Alvarado, CRAT- CCT Mariaa Lopez M.D., M.B.A. CV IMPLANTABLE CARDIAC D AZIZA documented in this encounter Visit Diagnoses Diagnosis Palpitations documented in this encounter
--- OUTSIDE RECORDS SUMMARY | 2022-07-07 08:07 | XMS_ITS | Encounter Summary ---
:1950 Author Organization [facility] Address [address] [place] [address] Care Team Providers Name Role Phone Unavailable Primary Care Provider Unavailable Encounter Details Date Type Department Care Team Description 08/28/2019 Hospital Encounter Department of Emmanuel Mclaughlin lpitations Cardiovascular Diseases Flex DriverB .S. in [facility] [address] [facility] [address] [place] [address] [phone] Social History Tobacco Use Types Packs/Day Years [...] Palpitations Results for this REMOTE FOLLOW UP DEALER COMPLIANCE REPRESENTATIVE procedure a re in the results section. documented in this encounter Results LOOP RECORDER REMOTE FOLLOW UP (08/28/2019 2:07 PM DEALER COMPLIANCE REPRESENTATIVE) Component Value Ref Test Analysis Performed At [facility] gist Range Method Time Signature Date Time [id number] [facility]ATION Interrogation +0000 LAB SYSTEM Session Implantable Medtronic FOUNDATION Pulse Generator LAB SYSTEM Client Delivery Specialist Implantable LNQ11 Reveal [facility]OUNDATION Pulse Generator LINQ LAB SYSTEM Model Implantable [id number] [facility] Pulse Generator LAB SYSTEM Serial Number Type Remote [facility] Interrogation LAB SYSTEM Session Clinic Name ECG Event - [facility] LAB SYSTEM [place] Implantable Implantable FOUNDATION Pulse Generator Diagnostic LAB SYSTEM Type Monitor Implantable [id number] [facility] Pulse Generator LAB SYSTEM Implant Date Anatomical Region Laterality Modality Other Specimen (Source) Anatomical Collection Method Collection Time Re ceived Time Location / / Volume Laterality 08/28/2019 10:39 AM DEALER COMPLIANCE REPRESENTATIVE Narrative 08/29/2019 5:24 PM DEALER COMPLIANCE REPRESENTATIVE *PURPOSE OF ENCOUNTER: * Summary transmission is [...] ranges from 1.5-4 hours per day. *INTERPRETING RESTORATIVE AIDE: *GAURAV Vaughan Emmanuel Romero CV IMPLANTABLE CARDIAC DE VICE documented in this encounter Visit Diagnoses Diagnosis Palpitations documented in this encounter
--- OUTSIDE RECORDS SUMMARY | 2022-07-07 08:07 | XMS_ITS | Encounter Summary ---
:1950 Author Organization [facility] Address [address] [place] [address] Care Team Providers Name Role Phone Unavailable Primary Care Provider Unavailable Encounter Details Date Type Department Care Team Description 05/02/2018 Hospital Encounter Department of Keegan Key Palpit ations Cardiovascular Diseases in .[place], [place] [address] [facility] [address] [place] [address] [phone] Social History Tobacco Use Types Packs/Day Years [...] Test Analysis Performed At [facility] Range Method Time Signature Date Time [id number] [facility]OUNDATION Interrogation +0000 LAB SYSTEM Session Implantable Medtronic FOUNDATION Pulse Generator LAB SYSTEM Social Work Coordinator Implantable LNQ11 Reveal FOUNDATION Pulse Generator LINQ LAB SYSTEM Model Implantable [id number] [facility]OUND[facility] Pulse Generator LAB SYSTEM Serial Number Type Remote [facility]OUND[facility] Interrogation LAB SYSTEM Session Clinic Name ECG Event - [facility] LAB SYSTEM [place] Implantable Implantable FOUNDATION Pulse Generator Diagnostic LAB SYSTEM Type Monitor Implantable [id number] [facility] Pulse Generator LAB SYSTEM Implant Date [...] per day. *INTERPRETING TECH: * Lubna Brennan Keegna Key M.D. CV IMPLANTABLE CARDIAC DEVIC Anibal documented in this encounter Visit Diagnoses Diagnosis Palpitations documented in this encounter
--- OUTSIDE RECORDS SUMMARY | 2022-07-07 08:07 | XMS_ITS | Encounter Summary ---
:1950 Author Organization [facility] Address [address] [place] [address] Care Team Providers Name Role Phone Unavailable Primary Care Provider Unavailable Encounter Details Date Type Department Care Team Description 10/12/2018 Hospital Encounter Department of Jorge Dawkins Palpita tions Cardiovascular Diseases in [place], Ph.D. [place], [place] [address] [facility] [address] [place] [address] [phone] Social History Tobacco Use Types Packs/Day Years [...] fo r this REMOTE FOLLOW UP AM FLAVORER procedure a re in the results section. documented in this encounter Results LOOP RECORDER REMOTE FOLLOW UP (10/12/2018 11:48 AM FLAVORER) Component Value Ref Test Analysis Performed At [facility] Range Method Time Signature Date Time [id number] [facility] Interrogation +0000 LAB SYSTEM Session Implantable Medtronic FOUNDATION Pulse Generator LAB SYSTEM Open Soaper Tender Implantable LNQ11 Reveal FOUNDATION Pulse Generator LINQ LAB SYSTEM Model Implantable [id number] [facility]OUNDATION Pulse Generator LAB SYSTEM Serial Number Type Remote [facility] Interrogation LAB SYSTEM Session Clinic Name ECG Event - [facility] LAB SYSTEM [place] Implantable Implantable FOUNDATION Pulse Generator Diagnostic LAB SYSTEM Type Monitor Implantable [id number] [facility]OUNDATION Pulse Generator LAB SYSTEM Implant Date Anatomical Region Laterality Modality Other Specimen (Source) Anatomical Collection Method Collection Time Re ceived Time Location / / Volume Laterality 10/12/2018 4:41 AM FLAVORER Narrative 10/25/2018 11:03 AM FLAVORER *PURPOSE OF ENCOUNTER: * Summary transmission is [...] per day. *INTERPRETING TECH*: GAURAV Monson Jorge Dawkisn M.D., Ph.D. CV IMPLANTABLE CARDIAC DEVIC E documented in this encounter Visit Diagnoses Diagnosis Palpitations documented in this encounter
--- OUTSIDE RECORDS SUMMARY | 2022-07-07 08:07 | XMS_ITS | Encounter Summary ---
:1950 Author Organization [facility] Address [address] [place] [address] Care Team Providers Name Role Phone Unavailable Primary Care Provider Unavailable Encounter Details Date Type Department Care Team Description 06/27/2019 Hospital Encounter Department of Alexis Ledezma, Palp itations Cardiovascular Diseases in M.D., M.P.H. [place], [place] [address] [facility] [address] [place] [phone] Social History Tobacco Use Types Packs/Day Years [...] Palpitations Results for this REMOTE FOLLOW UP COLLEGE DIRECTOR procedure a re in the results section. documented in this encounter Results LOOP RECORDER REMOTE FOLLOW UP (06/27/2019 1:23 PM COLLEGE DIRECTOR) Component Value Ref Test Analysis Performed At [facility] Range Method Time Signature Date Time [id number] [facility] Interrogation +0000 LAB SYSTEM Session Implantable Medtronic [facility] Pulse Generator LAB SYSTEM Make Up Operator Helper Implantable LNQ11 Reveal [facility] Pulse Generator LINQ LAB SYSTEM Model Implantable [id number] [facility] Pulse Generator LAB SYSTEM Serial Number Type Remote [facility] Interrogation LAB SYSTEM Session Clinic Name ECG Event - [facility] LAB SYSTEM [place] Implantable Implantable [facility]OUNDATION Pulse Generator Diagnostic LAB SYSTEM Type Monitor Implantable [id number] [facility] Pulse Generator LAB SYSTEM Implant Date Anatomical Region Laterality Modality Other Specimen (Source) Anatomical Collection Method Collection Time Re ceived Time Location / / Volume Laterality 06/25/2019 10:11 AM COLLEGE DIRECTOR Narrative 06/28/2019 3:20 PM COLLEGE DIRECTOR *PURPOSE OF ENCOUNTER: * Summary transmission is [...]
--- OUTSIDE RECORDS SUMMARY | 2022-07-07 08:07 | XMS_ITS | Encounter Summary ---
:1950 Author Organization [facility] Address [address] [place] [address] Care Team Providers Name Role Phone Unavailable Primary Care Provider Unavailable Encounter Details Date Type Department Care Team Description 07/05/2018 Hospital Encounter Department of [place] ions Cardiovascular Diseases in [place], [place] [address] [facility] [address] [place] [address] [phone] Social History Tobacco Use Types Packs/Day Years [...] Palpitations Results for this REMOTE FOLLOW UP COMMERCIAL DIVER procedure a re in the results section. documented in this encounter Results LOOP RECORDER REMOTE FOLLOW UP (07/05/2018 3:32 PM COMMERCIAL DIVER) Component Value Ref Test Analysis Performed At [facility] Range Method Time Signature Date Time [id number] [facility] Interrogation +0000 LAB SYSTEM Session Implantable Medtronic [facility] Pulse Generator LAB SYSTEM Ball Warper Tender Implantable LNQ11 Reveal [facility]ATION Pulse Generator LINQ LAB SYSTEM Model Implantable [id number] [facility] Pulse Generator LAB SYSTEM Serial Number Type Remote [facility] Interrogation LAB SYSTEM Session Clinic Name ECG Event - [facility] LAB SYSTEM [place] Implantable Implantable [facility]OUNDATION Pulse Generator Diagnostic LAB SYSTEM Type Monitor Implantable [id number] [facility] Pulse Generator LAB SYSTEM Implant Date Anatomical Region Laterality Modality Other Specimen (Source) Anatomical Collection Method Collection Time Re ceived Time Location / / Volume Laterality 07/05/2018 6:44 AM COMMERCIAL DIVER Narrative 08/29/2018 10:32 AM COMMERCIAL DIVER *PURPOSE OF ENCOUNTER: * Summary transmission is [...]
--- OUTSIDE RECORDS SUMMARY | 2022-07-07 08:07 | XMS_ITS | Encounter Summary ---
:1950 Author Organization [facility] Address [address] [place] [address] Care Team Providers Name Role Phone Unavailable Primary Care Provider Unavailable Encounter Details Date Type Department Care Team Description 05/24/2019 Hospital Encounter Department of Asirvatham, Palpitat ions Cardiovascular Diseases Derian Driver M.D. in [facility] 200 [facility] [address] [place] [phone] [phone] Social History Tobacco Use Types Packs/Day Years [...] Component Value Ref Test Analysis Performed At [facility] Range Method Time Signature Date Time [id number] [facility] Interrogation +0000 LAB SYSTEM Session Implantable Medtronic [employer] Pulse Generator LAB SYSTEM Furnace Fitter Implantable LNQ11 Reveal FOUNDATION Pulse Generator LINQ LAB SYSTEM Model Implantable [id number] [facility] Pulse Generator LAB SYSTEM Serial Number Type Remote [facility] Interrogation LAB SYSTEM Session Clinic Name ECG Event - [facility] LAB SYSTEM [place] Implantable Implantable FOUNDATION Pulse Generator Diagnostic LAB [...] between 40-100 bpm. ?? *INTERPRETING TECH: * Miguel Alvarado, CRAT- CCT Derian Hammer M.D. CV IMPLANTABLE CARDIAC DEVIC Anibal documented in this encounter Visit Diagnoses Diagnosis Palpitations documented in this encounter
--- OUTSIDE RECORDS SUMMARY | 2022-07-07 08:07 | XMS_ITS | Encounter Summary ---
:1950 Author Organization [facility] Address [address] [place] [address] Care Team Providers Name Role Phone Unavailable Primary Care Provider Unavailable Encounter Details Date Type Department Care Team Description 03/21/2019 Hospital Encounter Department of Emmanuel Mclaughlin lpitations Cardiovascular Diseases Flex DriverB .S. in [facility] [address] [facility] [address] [place] [address] [phone] Social History Tobacco Use Types Packs/Day Years [...] Component Value Ref Test Analysis Performed At [facility] Range Method Time Signature Date Time [id number] [facility] Interrogation +0000 LAB SYSTEM Session Implantable Medtronic Tumblr Pulse Generator LAB SYSTEM Nurses' Registry Director Implantable LNQ11 Reveal [facility] Pulse Generator LINQ LAB SYSTEM Model Implantable [id number] [facility] Pulse Generator LAB SYSTEM Serial Number Type Remote [facility] Interrogation LAB SYSTEM Session Clinic Name ECG Event - [facility] LAB SYSTEM [place] Implantable Implantable FOUNDATION Pulse Generator Diagnostic LAB SYSTEM Type Monitor Implantable [id number] [facility] Pulse Generator LAB SYSTEM Implant [...]
--- OUTSIDE RECORDS SUMMARY | 2022-07-07 08:08 | XMS_ITS | Encounter Summary ---
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 Procedure Note [...] the normal distal ICA in accordance with [facility] [place] Symptomatic Carotid Endarterectomy Trial (NASCET). IMPRESSION: 1. Right carotid bifurcation/proximal IC A stenosis in the range of 50-69%. 2. 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 Mallika Law M.D. IMG US PROCEDURES ECG 12 Lead (02/24/2018 7:57 AM CDT) P athologist Signature Ventricular Rate 59 BPM MUSE ECG/Min UT Interval 148 ms MUSE QRSD Interval 76 ms MUSE QT Interval 392 ms MUSE QTC Interval 388 ms MUSE P Tyner 49 degrees MUSE R Tyner 46 degrees MUSE T Wave Tyner 31 degrees MUSE Specimen Anatomical Collection Method Collection Time Receive d Time (Source) Location / / Volume Laterality 02/24/2018 7:57 AM 8 8:06 CDT AM CDT Impressions MUSE - 02/24/2018 8:06 AM CDT Sinus bradycardia Otherwise normal ECG When compared with ECG of 25-OCT-2016 12 :47, No significant change was found Narrative This result has an attachment that is no t available. Mallika Law M.D. ECG ORDERABLES Performing Organization Address City/State/ZIP Code Phon e Number MUSE MUSE NA documented in this encounter Visit Diagnoses Diagnosis Stenosis Aortic Valve Acquired - Primary Shortness Of Breath Dyspnea On Exertion Stenosis Aortic Valve Acquired Shortness Of Breath Dyspnea On Exertion documented in this encounter
--- OUTSIDE RECORDS SUMMARY | 2022-07-07 08:08 | XMS_ITS | Encounter Summary ---
:1950 Author Organization [facility] Address [address] [place] [address] Care Team Providers Name Role Phone Unavailable [...] 50 mg Take 1 tablet by 0 01/2017 tablet mouth daily. levothyroxine (SYNTHROID, [...]
--- OUTSIDE RECORDS SUMMARY | 2022-07-07 08:08 | XMS_ITS | Encounter Summary ---
:1950 Author Organization [facility] Address [address] [place] [address] Care Team Providers Name Role Phone Unavailable [...] Test ing Communication Cardiovascular Marjan Tena Orders ([facility] ent Medicine [place] [address] scheduled 02/27/18. [place], [place] b [place] her [phone] primary and had an [phone] echo. is wor se. Requested echo images [...]
--- OUTSIDE RECORDS SUMMARY | 2022-07-07 08:08 | XMS_ITS | Encounter Summary ---
:1950 Author Organization [facility] Address [address] [place] [address] Care Team Providers Name Role Phone Unavailable [...]
--- OUTSIDE RECORDS SUMMARY | 2022-07-07 08:08 | XMS_ITS | Encounter Summary ---
:1950 Author Organization [facility] Address [address] [place] [address] Care Team Providers Name Role Phone Unavailable Primary Care Provider Unavailable Encounter Details Date Type Department Care Team Description 12/27/2017 Hospital Encounter Department of Cale Douglas Cardiovascular Diseases Flex Driver, Ch.B., in [facility] Ph.D. [address] [facility] [address] [place] [phone] (Wo rk) Social History Tobacco Use Types [...] Component Value Ref Test Analysis Performed At [facility] gist Range Method Time Signature Date Time [id number] [facility] Interrogation +0000 LAB SYSTEM Session Implantable Medtronic [place] Pulse Generator LAB SYSTEM Registered Phlebotomist Part Time Implantable LNQ11 Reveal [facility]OUNDATION Pulse Generator LINQ LAB SYSTEM Model Implantable [id number] [facility] Pulse Generator LAB SYSTEM Serial Number Type Remote [facility] Interrogation LAB SYSTEM Session Clinic Name ECG Event - [facility] LAB SYSTEM [place] Implantable Implantable FOUNDATION Pulse Generator Diagnostic LAB SYSTEM Type Monitor Implantable [id number] [facility] Pulse Generator LAB SYSTEM Implant [...]
--- OUTSIDE RECORDS SUMMARY | 2022-07-07 08:08 | XMS_ITS | Encounter Summary ---
:1950 Author Organization [facility] Address [address] [place] [address] Care Team Providers Name Role Phone Unavailable Primary Care Provider Unavailable Reason for Visit Reason Onset Date Comments Appointment 01/19/2018 Encounter Details Date Type Department Care Team Description 01/19/2018 Clinical Communication Department of Elliot Law Cardiovascular Medicine Marjan Tena in [facility] [place] [address] [place] [address] Social History Tobacco Use Types Packs/Day [...]
--- OUTSIDE RECORDS SUMMARY | 2022-07-07 08:08 | XMS_ITS | Encounter Summary ---
:1950 Author Organization [facility] Address [address] [place] [address] Care Team Providers Name Role Phone Unavailable [...]
--- OUTSIDE RECORDS SUMMARY | 2022-07-07 08:08 | XMS_ITS | Encounter Summary ---
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 That would be much easier to return to. Thank you! documented in this encounter Plan of Treatment Not on filedocumented as of this encounter Visit Diagnoses Not on filedocumented in this encounter
--- OUTSIDE RECORDS SUMMARY | 2022-07-07 08:08 | XMS_ITS | Encounter Summary ---
:1950 Author Organization [facility] Address [address] [place] [address] Care Team Providers Name Role Phone Unavailable Primary Care Provider Unavailable Encounter Details Date Type Department Care Team Description 01/26/2018 Hospital Encounter Department of [place] ions Cardiovascular Diseases in [place], [place] [address] [facility] [address] [place] [address] [phone] Social History Tobacco Use Types Packs/Day Years [...] Component Value Ref Test Analysis Performed At [facility] Range Method Time Signature Date Time [id number] [facility] Interrogation +0000 LAB SYSTEM Session Implantable Medtronic [facility]OUNDATION Pulse Generator LAB SYSTEM Biostatistics Manager Implantable LNQ11 Reveal [facility] Pulse Generator LINQ LAB SYSTEM Model Implantable [id number] [facility] Pulse Generator LAB SYSTEM Serial Number Type Remote [facility] Interrogation LAB SYSTEM Session Clinic Name ECG Event - [facility] LAB SYSTEM [place] Implantable Implantable [facility]OUNDATION Pulse Generator Diagnostic LAB [...]
--- OUTSIDE RECORDS SUMMARY | 2022-07-07 08:08 | XMS_ITS | Encounter Summary ---
:1950 Author Organization [facility] Address [address] [place] [address] Care Team Providers Name Role Phone Unavailable [...]
[2022-07-07 10:04] LABS: Chloride* 109 mmol/L (96-114); Potassium* 4.3 mmol/L (3.6-5.1); Sodium* 140 mmol/L (135-149)
[2022-07-07 10:06] LABS: Cholesterol* 243 mg/dL (90-199); Creatinine* 0.7 mg/dL (0.5-1.5); Estimated Glomerular Filt Rate 93 ml/min
[2022-07-07 10:07] LABS: Blood Urea Nitrogen* 15 mg/dL (7-30); Calcium* 8.9 mg/dL (8.4-10.6); Carbon Dioxide* 28 mmol/L (20-32); Glucose* 126 mg/dL (60-115); Triglycerides* 117 mg/dL (40-149)
[2022-07-07 10:08] LABS: HDL Cholesterol* 55 mg/dL (>=50); LDL Cholesterol Calculated 165 mg/dL (<100)
== END 2022-07-07 16:02 | disposition home or self-care (01) ==
PROVIDERS: PCP Internal Medicine; Visit Provider Internal Medicine
DX: I10 Essential (primary) hypertension (principal); E03.9 Hypothyroidism, unspecified; E78.5 Hyperlipidemia, unspecified
CPT/HCPCS: 80048; 80061; 84443

== ENCOUNTER 2022-08-03 10:17 | Emergency (ER) | payer MEDICARE, OTHER, SELFPAY ==
[2022-08-03] VITALS (7 sets, daily range): BP systolic 142–223; BP diastolic 57–90; PULSE 44–51; RESP 16–18; TEMP 36.6; O2SAT 93–97; BMI 44.9
--- NOTE | 2022-08-03 11:03 | CT_ITS ---
Patient: DORA ROMO Facility:?[facility] Patient ID:?[id number] Site Patient ID:?[id number]. Site :?1950 Study:?CT-Head Angio NON-ACUTE 95CC ISOVUE 370-08/03/2022 1:16:48 PM Ordering Physician:?Jessica Dickey Final Report: INDICATION: Acute stroke, left-sided facial numbness. TECHNIQUE: CTA head with contrast bolus tracking and 3D MIP reconstruction. FINDINGS: There is normal opacification of the intracranial vasculature. There is no large vessel occlusion. No aneurysm is identified. IMPRESSION: Unremarkable head CTA. Please note that all CT scans at this facility use dose modulation, iterative reconstruction, and/or weight-based dosing when appropriate to reduce radiation dose to as low as reasonably achievable. Dictated by Delroy Birmingham MD @ 08/03/2022 3:50:27 PM Signed by:?Delroy Birmingham MD @08/03/2022 3:50:27 PM (Electronic Signature)
--- NOTE | 2022-08-03 11:03 | CT_ITS ---
Patient: DORA ROMO Facility:?[facility] Patient ID:?[id number] Site Patient ID:?[id number]. Site :?1950 Study:?CT-Head WO-08/03/2022 3:43:57 PM Ordering Physician:Ananth Dickey Final Report: INDICATION: Acute stroke, left-sided facial numbness. TECHNIQUE: CT head without contrast. FINDINGS: There is no intracranial hemorrhage. The escobar white matter differentiation is maintained. The ventricles and cisterns are clear. IMPRESSION: No acute intracranial abnormality at noncontrast CT. Please note that all CT scans at this facility use dose modulation, iterative reconstruction, and/or weight-based dosing when appropriate to reduce radiation dose to as low as reasonably achievable. Dictated by Delroy Birmingham MD @ 08/03/2022 3:49:31 PM Signed by:?Delroy Birmingham MD @08/03/2022 3:49:31 PM (Electronic Signature)
--- NOTE | 2022-08-03 11:03 | CT_ITS ---
Patient: DORA ROMO Facility:?[facility] Patient ID:?[id number] Site Patient ID:?[id number]. Site :?1950 Study:?CT-Neck Angio Angio 95CC ISOVUE 370 NON ACUTE-08/03/2022 1:27:42 PM Ordering Physician:?Jessica Dickey Final Report: INDICATION: Acute stroke, left-sided facial numbness. TECHNIQUE: CTA neck with contrast bolus tracking and 3D MIP reconstruction. FINDINGS: There is a focal severe stenosis at the origin of the right ICA, 95% by NASCET. There is a mild stenosis of the proximal left ICA, less than 50% by NASCET. There is no significant vertebral artery stenosis or dissection. The soft tissues of the neck are within normal limits. Degenerative changes are noted in the cervical spine. IMPRESSION: 1. Severe right ICA origin stenosis, 95% by NASCET. 2. Mild proximal left ICA stenosis, less than 50% by NASCET. Preliminary results were reported by Dr. Delaney at 2:01 p.m. on 08/03/2022. Please note that all CT scans at this facility use dose modulation, iterative reconstruction, and/or weight-based dosing when appropriate to reduce radiation dose to as low as reasonably achievable. Dictated by Delroy Birmingham MD @ 08/03/2022 3:55:26 PM Signed by:?Delroy Birmingham MD @08/03/2022 3:55:26 PM (Electronic Signature)
--- NOTE | 2022-08-03 11:43 | ED.NURSE ---
Difficult IV stick. 5 attempts so far. okay to let anesthesia try before going to CT. Okay to wait and do all CT exams at once. Patient ambulated to bathroom without difficulty.
--- NOTE | 2022-08-03 11:57 | ED_ITS ---
HPI - Neck Pain/Injury General Date Seen: 08/03/22 Chief Complaint: Unspecified Complaint, Adult Stated Complaint: Face numbness Time Seen by Provider: 08/03/22 10:19 Source: patient Mode of arrival: ambulatory Limitations: no limitations History of Present Illness HPI Narrative: Patient is a 72-year-old female presents ambulatory with her for evaluation of left-sided facial abnormal sensation, is almost feels like it is a little bit low number falling asleep here, this occurred approximately 1-2 hours ago, after she woke up, and also occurred when she lifted in turn her neck to the side. She has no weakness noted her smile is been normal according to her she has had no problems with speech issues no numbness tingling weakness in the hands or the feet any problems walking or talking no headaches, nausea vomiting or any other stroke-like symptoms. She does have a history of a right- sided carotid narrowing, found approximately a year ago after they did a workup for her aortic valve. She had an aortic valve placed a year ago. Denies any current neck pain associated with this, her movement is otherwise normal. Related Data Home Medications Medication Instructions Recorded Confirmed levothyroxine 25 mcg tablet mcg DAILY 03/08/22 aspirin 81 mg tablet,delayed 81 mg PO DAILY 08/03/22 08/03/22 release (Adult Aspirin Regimen) atorvastatin 80 mg tablet (Lipitor) 80 mg PO DAILY 08/03/22 08/03/22 Previous Rx's Medication Instructions Recorded warfarin 5 mg tablet See Rx Instructions PO .COMPLEX 05/05/22 Aortic Valve Replacement #144 tabs amoxicillin 500 mg capsule 2,000 mg PO ONCE PRN Dental 05/10/22 Appointment #4 caps atenolol 25 mg tablet 25 mg PO QDAY #90 tabs 06/28/22 Allergies Allergy/AdvReac Type Severity Reaction Status Date / Time niacin Allergy Intermediate Hives Verified 03/08/22 15:01 Review of Systems Status of ROS: Reports: 10 or more systems reviewed and unremarkable except as noted in History and below [facility] Medical History History of heart valve stenosis Surgical History History of aortic valve replacement (06/26/21) History of dilation and curettage (1975) History of hemorrhoidectomy (2014) History of loop recorder (10/2016) History of tubal ligation (1976) Social History Smoking Status: Never smoker How often do you have a drink containing alcohol: never AUDIT-C Alcohol total score: 0 Non-prescribed substance use: denies use Exam Narrative: Exam Narrative: Patient is peaking normally, problem with slurring words, oriented x3. Head eyes ears nose and throat exam show equal pupils, no scleral icterus, extraocular muscles are normal, no facial droop, speech is normal, trachea normal and midline. Thyroid normal midline palpable not enlarged. Chest shows symmetrical rise bilaterally, normal auscultation with no wheezes, no increased work of breathing, no overt bruising or lesions seen, no tenderness is noted on auscultation. Heart sounds normal with no S3-S4 no murmurs clicks or gallops. Abdomen shows no obvious masses or hepatosplenomegaly, no organomegaly, bowel sounds are normal in all quadrants. No tenderness is noted also in all quadrants. Upper and lower extremities show normal power, normal range of motion, pulses are normal, sensations normal, fine motor movements are normal, pelvis is stable to rocking. Cervical spine shows normal range of motion, and palpably not tender. Thoracic spine shows normal range of motion, and palpably not tender, lumbar spine shows no tenderness to palpation percussion and is otherwise normal range of motion. Skin shows no rashes, petechiae or eccymosis. Cranial nerves 3-12 are normal, she is able do a purse her lips and was slow, sensation is really normal over her face, but just these areas around her lip which actually cross over the midline a little bit that she says her little bit feeling abnormal. Her sees her face and says it totally looks normal for her. She carotid upstrokes bilaterally are normal, and there is no bruits noted. She is able to walk and talk otherwise normal Const: Vital Signs, click to edit/add: Vital Signs - 24 hr 08/03/22 10:30 08/03/22 13:13 08/03/22 13:34 Temperature 97.8 F Pulse Rate [Pulse Oximeter] 51 L 48 L 46 L Respiratory Rate 18 16 Blood Pressure [Ri ght Upper Arm] 144/70 H 223/76 H Pulse Oximetry 93 95 Oxygen Delivery Me thod Room Air Room Air 08/03/22 13:13 08/03/22 14:07 08/03/22 14:40 Temperature Pulse Rate [Pulse Oximeter] 48 L 44 L Respiratory Rate 16 16 Blood Pressure [Ri t Upper Arm] 209/90 H 150/57 H 142/64 H Pulse Oximetry 96 97 Oxygen Delivery Me thod Room Air Documenting provider has reviewed patient's vital signs: yes Course Course Hospital Course: Given the above I think a workup for this is initiated, I will do a CT and a CTA head, they are having somewhat struggling getting IV in her, we will do a point of care creatinine, given the fact that it does cross over the midline I am a little less worried given her actually NIH Screen is 0 here also and no cross the midline, but I do think a workup given the fact she has an aortic valve and also history of the stenosis is important. She was comfortable with this plan Reevaluation(s) Reevaluation #1: Spoke to the patient in detail show them the report on the CT CTA which showed near occlusion of the right side of her carotids. Given her complaints I think an MRI of her head will rule out any sort of small stroke, she is not a candidate for tPA, given her NIH Screen in the fact she is also on therapeutic dose of warfarin. INR was 2.06. Time: 15:13 Reevaluation #2: At this point I waiting for the MRI, will sign her over to my partner, he will get the results of the MRI, I fully anticipate her going home, the question I would have is whether not she should be on antiplatelet therapy small amount along with her Coumadin for aortic valve, she does have near complete occlusion of the right carotid, with less than 50% of the left, she is due to follow-up with vascular surgery in new year. Time: 16:30 Vital Signs Vital signs: Initial Vital Signs Temperature 97.8 F 08/03/22 10:30 Temperature Source Temporal Artery Scan 08/03/22 10:30 Pulse Rate 51 L 08/03/22 10:30 Respiratory Rate 18 08/03/22 10:30 Blood Pressure 144/70 H 08/03/22 10:30 Blood Pressure Mean 94 08/03/22 10:30 Blood Pressure Position Supine 08/03/22 10:30 Pulse Oximetry 93 08/03/22 10:30 Oxygen Delivery Method 08/03/22 10:30 Vital Signs Temperature 97.8 F 08/03/22 10:30 Pulse Rate 51 L 08/03/22 10:30 Respiratory Rate 18 08/03/22 10:30 Blood Pressure 144/70 H 08/03/22 10:30 Pulse Oximetry 93 08/03/22 10:30 Oxygen Delivery Method 08/03/22 10:30 Temperature 97.8 F 08/03/22 10:30 Pulse Rate 44 L 08/03/22 14:40 Respiratory Rate 16 08/03/22 14:40 Blood Pressure 142/64 H 08/03/22 14:40 Pulse Oximetry 97 08/03/22 14:40 Oxygen Delivery Method 08/03/22 13:34 MDM - Neck Pain/Injury Lab Data Labs: Lab Results 08/03/22 08/03/22 08/03/22 Range/Units 12:42 12:42 12:51 INR 2.06 H (0.91-1.10) APTT 35 H (23-33) Seconds D-Dimer Quant (PE/DVT) < 0.27 (0.00-0.50) ug/ml Sodium 141 (135-149) mmol/L Potassium 4.6 (3.6-5.1) mmol/L Chloride 110 (96-114) mmol/L Carbon Dioxide 27 (20-32) mmol/L BUN 15 (7-30) mg/dL Creatinine 0.7 (0.5-1.5) mg/dL Estimated Creat Clear 37.60 Estimated GFR 93 ml/min Glucose 101 (60-115) mg/dL Calcium 9.0 (8.4-10.6) mg/dL SARS-CoV-2 (PCR) (Negative) POC Creatinine 0.8 (0.6-1.3) mg/dl 08/03/22 Range/Units 15:16 INR (0.91-1.10) APTT (23-33) Seconds D-Dimer Quant (PE/DVT) (0.00-0.50) ug/ml Sodium (135-149) mmol/L Potassium (3.6-5.1) mmol/L Chloride (96-114) mmol/L Carbon Dioxide (20-32) mmol/L BUN (7-30) mg/dL Creatinine (0.5-1.5) mg/dL Estimated Creat Clear Estimated GFR ml/min Glucose (60-115) mg/dL Calcium (8.4-10.6) mg/dL SARS-CoV-2 (PCR) Negative SARS-CoV-2 (Negative) POC Creatinine (0.6-1.3) mg/dl Discharge Plan Discharge Clinical Impression: Adequate anticoagulation on anticoagulant therapy, Right cavernous carotid stenosis, Lt facial numbness Patient Disposition: Home w/ Parent or Adult Condition: Stable Additional Instructions: He will be discharged home, please see Dr. Winkler is suggestion after his discussion with Neurology. Prescriptions: No Action atorvastatin [Lipitor] 80 mg tablet 80 mg PO DAILY aspirin [Adult Aspirin Regimen] 81 mg tablet,delayed release (DR/EC) 81 mg PO DAILY levothyroxine 25 mcg tablet DAILY warfarin 5 mg tablet See Rx Instructions PO .COMPLEX Qty: 144 0RF Protocol: Dose Management Condition: Tuesday Dose/Route: 5 % Instruction: 1 x 5 % tablet Condition: Tuesday Dose/Route: 10 % Instruction: 2 x 5 % tablets Condition: Tuesday Dose/Route: 10 % Instruction: 2 x 5 % tablets Condition: Tuesday Dose/Route: 5 % Instruction: 1 x 5 % tablet Condition: Dose/Route: 10 % Instruction: 2 x 5 % tablets Condition: Tuesday Dose/Route: 10 % Instruction: 2 x 5 % tablets Condition: Tuesday Dose/Route: 10 % Instruction: 2 x 5 % tablets Protocol Text: Adjustment Start Date: Tuesday07/07/22 INR Value: 2.8 INR Date: 07/07/22 Recheck Date: 08/06/22 Rx Instructions: Patient to take 5mg on Tue/Tue and 10mg the rest of the week. amoxicillin 500 mg capsule 2,000 mg PO ONCE PRN (Reason: Dental Appointment) Qty: 4 3RF Rx Instructions: Take before dental work atenolol 25 mg tablet 25 mg PO QDAY Qty: 90 0RF Follow Up/Referrals: Nai Law MD [Primary Care Provider] - Stand Alone Forms: [employer] Info Instructions
[2022-08-03 12:52] LABS: Creatinine, Point-of-Care* 0.8 mg/dl (0.6-1.3)
--- OUTSIDE RECORDS SUMMARY | 2022-08-03 13:05 | XMS_ITS | Encounter Summary ---
:1950 Author Organization [facility] Address [address] [place] [address] Care Team Providers Name Role Phone Elsewhere, Pcp Primary Care Provider Unavailable Reason for Visit Reason Comments Pre-visit Intake Outpatient (Routine) - Closed Specialty Diagnoses / Procedures Referred By Contact Refer red To Contact Obstetrics and Diagnoses Incontinence Urinary Stress And Urge Rectocele Bud Orosco [facility] Gynecology Marjan Schmitt [address] [place] [phone] Referral ID Status Reason Start Date Expiration Date Visits Requ ested Visits Authorized [id number] Closed 03/24/2021 03/24/2022 1 1 Encounter Details Date Type Department Care Team Description 05/08/2021 Clinical Communication Visit Review in Bud Orosco Pre-visit Intake Marina Allison Jr., M.D. [address] [phone] Social History Tobacco Use Types Packs/Day Years Used Date Smoking Tobacco: Never Smokeless Tobacco: Never Sex Assigned at Date Recorded Not on file documented as of this encounter Plan of Treatment Not on filedocumented as of this encounter Visit Diagnoses Diagnosis Incontinence Urinary Stress And Urge Rectocele documented in this encounter Care Teams Information Broker Relationship Specialty Start Date End Date Elsewhere, Pcp PCP - General Family Medicine 05/08/21 documented as of this encounter
--- OUTSIDE RECORDS SUMMARY | 2022-08-03 13:05 | XMS_ITS | Encounter Summary ---
:1950 Author Organization [facility] Address [address] [place] [address] Care Team Providers Name Role Phone Unavailable Primary Care Provider Unavailable Reason for Referral Outpatient (Routine) - Closed Specialty Diagnoses / Procedures Referred By Contact Refer red To Contact Endocrinology Diagnoses Morbid Obesity Body Mass Index 45.0-49.9 Adult ([facility]) Nai Law M.D. [address] [address] Referral ID Status Reason Start Date Expiration Date Visits Requ ested Visits Authorized [id number] Closed 03/25/2021 03/25/2022 1 1 Encounter Details Date Type Department Care Team Description 03/24/2021 [facility] Nai Law Morbid Obesity Body AND CLINICS Marjan Barnett Mass Index 45.0-49.9 [facility] Adult ([facility]) (Primary [place], [place] Dx) [id number] [phone] Social History Tobacco Use Types Packs/Day Years [...]
--- OUTSIDE RECORDS SUMMARY | 2022-08-03 13:05 | XMS_ITS | Encounter Summary ---
:1950 Author Organization [facility] Address [address] [place] [address] Care Team Providers Name Role Phone Unavailable Primary Care Provider Unavailable Reason for Referral Outpatient (Routine) - Closed Specialty Diagnoses / Procedures Referred By Contact Refer red To Contact Obstetrics and Diagnoses Incontinence Urinary Stress And Urge Rectocele Bud Orosco [facility] Alycia Schmitt M.D. [address] [place] [phone] Referral ID Status Reason Start Date Expiration Date Visits Requ ested Visits Authorized [id number] Closed 03/24/2021 03/24/2022 1 1 Reason for Visit Reason Comments Follow-up Outpatient (Routine) - Closed Specialty Diagnoses / Procedures Referred By Contact Refer red To Contact Obstetrics and Diagnoses Incontinence Urinary Stress Female Bud Orosco [facility] Alycia Schmitt M.D. [address] [place] [phone] Referral ID Status Reason Start Date Expiration Date Visits Requ ested Visits Authorized [id number] Closed 02/17/2021 02/17/2022 1 1 Encounter Details Date Type Department Care Team Description 03/24/2021 Office Visit Department of Bud Orosco Rectocele (Primary Dx); Obstetrics and Marjan Schmitt Incontinence Urinary Stress And Urge Gynecology in [address] [place], [place] TIARRA Philip [address] [phone] [place] [phone] (Work) [phone] Social History Tobacco Use Types Packs/Day Years [...] will have her meet with UroGyn in [place] to discuss ??? Morbid Obesity Body Mass [...] will have her meet with UroGyn in [place] to discuss potential surgery. Orders: - Obstetrics and Gynecology office visit (clinic) #2 Followup PLAN: Patient will contact the clinic with questions or concerns prior to this time. This document serves as a record of services personally performed by Bud Orosco MD. It was created on their behalf by Ivette Suazo, a trained medical office administrator. The creation of this record is based onthe scribe's personal observations and the provider's statements to them. This document has been [facility] and approved by the attending [...]
--- OUTSIDE RECORDS SUMMARY | 2022-08-03 13:05 | XMS_ITS | Continuity of Care Document ---
:1950 Author Organization [facility] Address [address] [address] [place] [address] Phone Care Team Providers Name Role Phone Unavailable Unavailable Unavailable Allergies, Adverse Reactions, Alerts Substance [...] rs Description For Visit Copied on Encounter [facility] [place] Screening No Referring Digestive Endoscopy colonoscopyDiver Information Provider: [facility], [place] ticulosis of [address]. [address], [place], [place], culosis Of Colon [id number], tel:[phone] Family History Family Member Type Diagnosis Age At Onset Son Problem (finding) Liver disease Daughter Problem (finding) hypercholesterolemia in first degree relative Daughter Problem (finding) knee surgeries Father Problem (finding) hypercholesterolemia in first degree relative Mother Problem (finding) 90 Daughter Problem (finding) Alive and well Father Problem (finding) Payers Payer name Insurance type Covered constitution party ID Authorization(s ) No Information Social History [...]
--- OUTSIDE RECORDS SUMMARY | 2022-08-03 13:05 | XMS_ITS | Continuity of Care Document ---
:1950 Author Organization [facility] Address [address] [address] [place] [address] Care Team Providers Name Role Phone [place], [place] Unavailable Unavailable Procedures Procedure Date Colono Advance Directives Directive Yes / No Effective Date File Name No Information Encounters Encounter Practice Location Reason(s) Diagnoses Date Provider Provide rs Description For Visit Copied on Encounter [facility] No Endoscopy Endoscopy Endoscopy Information -2014 Center [facility]. [address] [address], [address], [place], [place], [place], [place], [id number], [id number], [place]. tel:[phone] Family History Family Member Type Diagnosis Age At Onset No Information Payers Payer name Insurance type Covered libertarian [...]
--- OUTSIDE RECORDS SUMMARY | 2022-08-03 13:05 | XMS_ITS | Clinical Summary ---
:1950 Author Organization [facility] [place] [address] Care Team Providers Name Role Phone Nai [...] Encounters Date Type Specialty Care Team Description 07/19/2022 Refill Shante Mathis Refill Request MD Odette (Levothyroxine) 06/25/2022 Orders Only Gume Christine <No scans attached> MD Jordan from Last 3 Months Immunizations Name Administration Dates Next Due COVID-19 vaccine ([employer] 11/16/2020, 10/26/2020 30mcg/0.3mL) EAMON JACK Hepatitis A [...] Date Smoking Tobacco: Never Smokeless Tobacco: Never Tobacco Cessation: Counseling Given: Yes Alcohol Use [...] Visit Denzel Christine MD [address] [place] [id number] [place] [address] (Wo rk) Health Maintenance Due Date Last Done Comments DEXA/DXA scan for age 65+ 2017 Mammogram for age 45-75 10/05/2017 10/05/2016, 03/07/2015, 03/07/2015 (Completed outside of [facility]), Additional history exists Medicare Wellness for age [...] 12/05/2024 12/05/2014, 5, 02/04/2010 (Completed outside of [facility]) Lipids for age 45-75 06/10/2026 06/10/2021, 09/27/2019, 05/02/2018, Additional history exists Tetanus booster 09/27/2029 09/27/2019, 10/15/2008, 08/22/1999 Tdap Completed 10/15/2008 Hepatitis C screening for age Completed 09/27/2019 18-79 Pneumococcal series for age 65+ Completed 09/27/2019, 04/22 Results Not on filefrom Last 3 Months Insurance Payer Benefit Plan / Subscriber ID Effective Dates Phone Addre ss Type Group MEDICARE PART B MEDICARE PART B [id number] 2017-Presen ATTN: CLAIMS - HB USE ONLY HB ONLY t [address] [place] [address] MEDICARE PART A MEDICARE PART A [id number] 2017-Presen ATTN: CLAIMS - HB USE ONLY HB ONLY t [address] [place] [address] MEDICARE - PB MEDICARE PB [id number] 2017-Presen ATT N: CLAIMS USE ONLY ONLY t [address] [place] [address] PRIME [id number] 2013-Presen C/O [employer]/ [address] [place] [id number] FOR [id number] 2017-Presen [address] [place] [address] Dinah Thorne Personal/Family Self [address] (Home) [place] [address] Advance Directives Latest Code Status on File Code Status Date Activated Date Inactivated Comments Full Code 02/15/2022 12:01 PM 02/15/2022 2:42 PM Question Answer Comments Code Status Discussion: Reviewed Preferences Code Status History Code Status Date Activated Date Inactivated Comments Full Code 06/26/2021 12:30 PM 06/27/2021 2:18 PM Question Answer Comments Code Status Discussion: Discussed Full Code 06/10/2021 11:57 AM 06/10/2021 7:43 PM Question Answer Comments Code Status Discussion: Discussed Care Teams Auto Body Builder Apprentice Relationship Specialty Start Date End Date Nai Law MD PCP - General Internal Medicine 05/21/211999 [place] [address]
--- OUTSIDE RECORDS SUMMARY | 2022-08-03 13:05 | XMS_ITS | Encounter Summary ---
:1950 Author Organization [facility] Address [address] [place] [address] Care Team Providers Name Role Phone Unavailable Primary Care Provider Unavailable Reason for Visit Outpatient (Routine) - Closed Specialty Diagnoses / Procedures Referred By Contact Refer red To Contact Diagnoses Incontinence Urinary Stress Female Bud Orosco Jr., [facility] Procedures US Pelvis Transvaginal and Transabdominal US Pelvis Transvaginal and Transabdominal Doppler US Pelvis Transvaginal and Transabdominal M.D. [address] [place] [address] Referral ID Status Reason Start Date Expiration Date Visits Requ ested Visits Authorized [id number] Closed 02/17/2021 02/17/2022 1 1 Encounter Details Date Type Department Care Team Description 03/19/2021 Hospital Encounter Department of Bud Orosco inencmarlys Urinary Radiology in Marina Schmitt M.D. Stress Female Michelle, [address], [place] [address] [address] [place], [place] [phone] (Work) [phone] Social History Tobacco Use Types Packs/Day Years [...]
--- OUTSIDE RECORDS SUMMARY | 2022-08-03 13:05 | XMS_ITS | Encounter Summary ---
:1950 Author Organization [facility] Address [address] [place] [address] Care Team Providers Name Role Phone Elsewhere, Pcp Primary Care Provider Unavailable Reason for Referral Physical Therapy (Routine) - Closed Specialty Diagnoses / Procedures Referred By Contact Refer red To Contact Diagnoses Overactive Bladder Urgency Urinary Symptom Urinary Urinary Urge Incontinence Ad Juarez M.D. [address] [place] [address] Referral ID Status Reason Start Date Expiration Visits Visits Date Requested Authorized [id number] Closed Patient 05/12/2021 05/12/2022 99 99 Preference Outpatient (Routine) - Closed Specialty Diagnoses / Procedures Referred By Contact Refer red To Contact Diagnoses Overactive Bladder Urgency Urinary Symptom Urinary Urinary Urge Incontinence Cystocele Ad Juarez M.D. [facility] Procedures UROGYN Cystoscopy [address] [place] [address] Referral ID Status Reason Start Date Expiration Date Visits Requ ested Visits Authorized [id number] Closed 05/12/2021 05/12/2022 1 1 Reason for Visit Outpatient (Routine) - Closed Specialty Diagnoses / Procedures Referred By Contact Refer red To Contact Obstetrics and Diagnoses Incontinence Urinary Stress And Urge Rectocele Bud Orosco [facility] Gynecology Marjan Schmitt [address] [place] [address] Referral ID Status Reason Start Date Expiration Date Visits Requ ested Visits Authorized [id number] Closed 03/24/2021 03/24/2022 1 1 Encounter Details Date Type Department Care Team Description 05/12/2021 Comprehensive Visit Department of Stefanie Juarez mai Bladder (Primary Dx); Obstetrics and Ad Calvo M.D. Urgency Urinary; Gynecology, Division [address] [facility] Symptom Urinary; of Urogynecology in [place], [place] Urinary Urge Incontinence; [place], [place] [address] [phone] [place], [place] (Work) [address] [phone] Social History Tobacco Use Types Packs/Day Years [...] on filedocumented as of this encounter Results [place] CYSTOURETHROSCOPY (05/12/2021 11:29 AM CDT) Narrative MMODAL [...] fellow participated in the procedure, and the systems development consultant was present for the entire procedure. Ad Juarez M.D. OB GYNE ORDERABLES Performing Organization Address City/State/ZIP Code Phon e Number MMODAL MMODAL NA documented in this encounter Visit Diagnoses Diagnosis Overactive Bladder - Primary Urgency Urinary Symptom Urinary Urinary Urge Incontinence Cystocele Overactive Bladder Urgency Urinary Symptom Urinary Urinary Urge Incontinence Cystocele documented in this encounter Care Teams Folding Machine Setter Relationship Specialty Start Date End Date Elsewhere, Pcp PCP - General Family Medicine 05/08/21 documented as of this encounter
--- OUTSIDE RECORDS SUMMARY | 2022-08-03 13:05 | XMS_ITS | Encounter Summary ---
:1950 Author Organization [facility] Address [address] [place] [address] Care Team Providers Name Role Phone Unavailable Primary Care Provider Unavailable Reason for Referral Outpatient (Routine) - Closed Specialty Diagnoses / Procedures Referred By Contact Refer red To Contact Diagnoses Incontinence Urinary Stress And Urge Ad Juarez M.D. [facility] Procedures OBG Urodynamic Studies [address] [place] [address] [phone] Referral ID Status Reason Start Date Expiration Date Visits Requ ested Visits Authorized [id number] Closed 05/07/2021 05/07/2022 1 1 Encounter Details Date Type Department Care Team Description 05/07/2021 Orders Only Department of Melvi Dorman Incontin ence Urinary Obstetrics and L, R.N. Stress And Urge Gynecology, Division of [address] [place] [address] (Primary Dx) Urogynecology in [place], [place] [address] [place] [address] [place], [place] (Work) [phone] Social History Tobacco Use Types Packs/Day Years Used Date Smoking Tobacco: Never Smokeless Tobacco: Never Sex Assigned at Date Recorded Not on file documented as of this encounter Plan of Treatment Not on filedocumented as of this encounter Results [place] CYSTOMETROGRAM SIMPLE, [place] STEPHANIE PST VOID RESID US NON IMG, [place] IRRI BLAD SMPL LAVAGE&/INSTILL, [place] UROFLOWMETRY SIMPLE (05/12/2021 9:41 AM CDT) Narrative [...]
--- OUTSIDE RECORDS SUMMARY | 2022-08-03 13:05 | XMS_ITS | Encounter Summary ---
:1950 Author Organization [facility] Address [address] [place] [address] Care Team Providers Name Role Phone Elsewhere, Pcp Primary Care Provider Unavailable Reason for Visit Outpatient (Routine) - Closed Specialty Diagnoses / Procedures Referred By Contact Refer red To Contact Diagnoses Overactive Bladder Urgency Urinary Symptom Urinary Urinary Urge Incontinence Cystocele Ad Juarez M.D. [facility] Procedures UROGYN Cystoscopy [address] [place] [address] Referral ID Status Reason Start Date Expiration Date Visits Requ ested Visits Authorized [id number] Closed 05/12/2021 05/12/2022 1 1 Encounter Details Date Type Department Care Team Description 05/12/2021 Procedure visit Department of Ad Juarez Overact mai Bladder; Obstetrics and Marjan Calvo Urgency Urinary; Gynecology, Division [address] [place] [address] Symptom Urinary; of Urogynecology in [place], [place] Urinary Urge Incontinence; [place], [place] [address] Cystocele [address] [facility] [phone] [place], [place] (Work) [phone] [phone] Social History Tobacco Use Types Packs/Day Years [...] fellow participated in the procedure, and the cruise consultant was present for the entire procedure. GY[place]UR[place] Exam Amb documented in this encounter Plan of Treatment Not on filedocumented as of this encounter Procedures Procedure Name Priority Date/Time Associated Comments Diagnosis KS CYSTOURETHROSCOPY Routine 05/12/2021 11:29 Overactive Bladder Results for this AM CDT Urgency Urinary procedure are in Symptom Urinary the results Urinary Urge section. Incontinence Cystocele documented in this encounter Results [place] CYSTOURETHROSCOPY (05/12/2021 11:29 AM CDT) Narrative MMODAL [...] fellow participated in the procedure, and the cruise consultant was present for the entire procedure. Ad Juarez M.D. OB GYNE ORDERABLES Performing Organization Address City/State/ZIP Code Phon e Number MMODAL MMODAL NA documented in this encounter Visit Diagnoses Diagnosis Overactive Bladder Urgency Urinary Symptom Urinary Urinary Urge Incontinence Cystocele documented in this encounter Care Teams Nib Inspector Relationship Specialty Start Date End Date Elsewhere, Pcp PCP - General Family Medicine 05/08/21 documented as of this encounter
--- OUTSIDE RECORDS SUMMARY | 2022-08-03 13:05 | XMS_ITS | Encounter Summary ---
:1950 Author Organization [facility] Address [address] [place] [address] Care Team Providers Name Role Phone Elsewhere, Pcp Primary Care Provider Unavailable Encounter Details Date Type Department Care Team Description 05/14/2021 Clinical Communication Department of Helene, Obstetrics and Monserrat Balderrama M.D. Gynecology, Division of [facility] [address] [facility] Urogynecology in [place], [place] [address] [place] [address] [place], [place] (Work) [address] [phone] Social History Tobacco Use Types Packs/Day Years [...] on filedocumented in this encounter Care Teams Acetone Recovery Worker Relationship Specialty Start Date End Date Elsewhere, Pcp PCP - General Family Medicine 05/08/21 documented as of this encounter
--- OUTSIDE RECORDS SUMMARY | 2022-08-03 13:05 | XMS_ITS | Clinical Summary ---
:1950 Author Organization [facility] Address [address] [place] [address] Care Team Providers Name Role Phone Elsewhere, Pcp Primary Care Provider Unavailable Source Comments Patient records contain information from all sites at [facility]. For routine questions regarding patient records, call [phone] during business hours, M-F 8:00 AM - 5:00 PM Central Time. Record requests for emergency care only can be directed to [phone] at any time.[facility] Allergies Active Allergy Reactions Severity Noted Date [...] will have her meet with UroGyn in [facility] to discuss potential surgery. Stenosis Aortic Valve [...] 09/27/2019, 06/2018 Medical Devices Implanted Type Area Decorator Consultant Device Shelf Model / Identifier Expiration Serial / Date Lot CAPPTUREys Loop Recorder System - Leonard [id number] Implantable Othe r/Legacy - Medtronic / Implanted: Qty: 1 on 10/26/2016 Loop Recorder See Implant [id number] / Description Description: Device Decorator Consultant - [employer]. Body Location - Other. Left. Device Status Text - [id number]. Battery is . Insurance Payer Benefit Plan Subscriber ID Effective Phone Address Typ e / Group Dates MEDICARE MEDICARE A [id number] 2017-Pres [address] [place] [address] FOR FOR [id number] 2017-Prese [phone] [phone] Indemnity LIFE LIFE nt [address] [place] [address] [address] [facility] (Home) W [phone] [place], [place] (Work) [phone] Care Teams Anodizer Relationship Specialty Start Date End Date Elsewhere, Pcp PCP - General Family Medicine 05/08/21
--- OUTSIDE RECORDS SUMMARY | 2022-08-03 13:05 | XMS_ITS | Encounter Summary ---
:1950 Author Organization [facility] Address [address] [place] [address] Care Team Providers Name Role Phone Elsewhere, Pcp Primary Care Provider Unavailable Encounter Details Date Type Department Care Team Description 05/13/2021 Orders Only Department of Obstetrics and [facility], Stephon Balderrama, Gynecology, Division of M.D. Urogynecology in [address] [place] [address] [place] [address] [phone] Social History Tobacco Use Types Packs/Day Years Used Date Smoking Tobacco: Never Smokeless Tobacco: Never Sex Assigned at Date Recorded Not on file documented as of this encounter Plan of Treatment Not on filedocumented as of this encounter Visit Diagnoses Not on filedocumented in this encounter Care Teams Lead Mobile Developer Relationship Specialty Start Date End Date Elsewhere, Pcp PCP - General Family Medicine 05/08/21 documented as of this encounter
--- OUTSIDE RECORDS SUMMARY | 2022-08-03 13:05 | XMS_ITS | Encounter Summary ---
:1950 Author Organization [facility] Address [address] [place] [address] Care Team Providers Name Role Phone Unavailable Primary Care Provider Unavailable Encounter Details Date Type Department Care Team Description 03/26/2021 Clinical Communication Department of Bud Orosco Obstetrics and Marjan Schmitt Gynecology in [address] [place], [place] 200 [facility] [address] [place], [place] [phone] [address] (Work) [phone] Social History Tobacco Use Types Packs/Day Years [...]
--- OUTSIDE RECORDS SUMMARY | 2022-08-03 13:05 | XMS_ITS | Encounter Summary ---
:1950 Author Organization [facility] Address [address] [place] [address] Care Team Providers Name Role Phone Elsewhere, Pcp Primary Care Provider Unavailable Reason for Visit Outpatient (Routine) - Closed Specialty Diagnoses / Procedures Referred By Contact Refer red To Contact Diagnoses Incontinence Urinary Stress And Urge Ad Juarez M.D. [facility] Procedures OBG Urodynamic Studies [address] [place] [phone] Referral ID Status Reason Start Date Expiration Date Visits Requ ested Visits Authorized [id number] Closed 05/07/2021 05/07/2022 1 1 Encounter Details Date Type Department Care Team Description 05/12/2021 Procedure visit Department of Ad Juarez Urinary Obstetrics and Marjan Calvo Stress And Urge Gynecology, Division [address] [place] [address] (Primary Dx) of Urogynecology in [place], [place] [address] [place] [address] [place], [place] (Work) [phone] Social History Tobacco Use Types Packs/Day Years [...] Name Priority Date/Time Associated Diagnosis Comme nts [place] OSMOLALITY ASSAY Routine 05/12/2021 9:45 Resul ts [...] procedure ar e in the results section. [place] UROFLOWMETRY SIMPLE Routine 05/12/2021 9:41 Incontinence Ur inary Results for this AM CDT Stress And Urge procedure ar e in the results section. NJ IRRI BLAD SMPL Routine 05/12/2021 9:41 Incontinence Urinary Results for this LAVAGE&/INSTILL AM CDT Stress And Urge procedure are in the results section. [place] STEPHANIE PST VOID RESID Routine 05/12/2021 9:41 Incontinence Ur inary Results for this US NON IMG AM CDT Stress And Urge procedure ar e in the results section. [place] CYSTOMETROGRAM Routine 05/12/2021 9:41 Incontinence Urinary Results for this SIMPLE AM CDT Stress And Urge procedure ar e in the results section. documented in this encounter Results (ABNORMAL) Dipstick, Urine (05/12/2021 9:45 AM CDT) [facility] gist Method Time Signature Hemoglobin, Trace [...] M.D. LAB URINE ORDERABLES Performing Organization Address City[facility] Phon e Number [facility] [address] [place], [place] [phone] [place] [address] Osmolality, Urine (05/12/2021 9:45 AM CDT) athologist Signature Osmolality, U 599 150 - 1150 05/12/2021 DTL mOsm/kg 1:25 PM CDT Specimen Anatomical Collection Method Collection Time Receive d Time (Source) Location / / Volume Laterality Urine 05/12/2021 9:45 AM 1 CDT 12:42 PM CDT Ad Juarez M.D. LAB URINE ORDERABLES Performing Organization Address [facility] Phon e Number [facility] - 200 [place], [place] [address] [place] [phone] [place] [address] pH, Random, Urine (05/12/2021 9:45 AM CDT) P athologist Signature pH, Random, U 5.2 4.5 - 8.0 05/12/2021 DTL 1:25 PM CDT Specimen Anatomical Collection Method Collection Time Receive d Time (Source) Location / / Volume Laterality Urine 05/12/2021 9:45 AM 1 CDT 12:42 PM CDT Ad Juarez M.D. LAB URINE ORDERABLES Performing Organization Address [facility] Phon e Number [facility] - [address] [place] [address] [address] (ABNORMAL) Microscopic Manual (05/12/2021 9:45 AM [...] M.D. LAB URINE ORDERABLES Performing Organization Address [facility] Phon e Number [facility] - [address] [place] [address] [address] (ABNORMAL) Urinalysis with Microscopic: Urine, Catheter [...] Organization Address City/State/ZIP Code Phon e Number [facility] - [address] [place], [place] [address] [facility] [place] [address] Laboratories-[facility] [address] (ABNORMAL) Bacterial Culture, Aerobic + Susc, Urine (05/12/2021 9:45 AM CDT) [facility] gist Method Time Signature Urine Culture [...] Organization Address City/State/ZIP Code Phon e Number [facility] - 200 [place], [place] [address] [place] [address] [place] [address] Laboratories-[facility] [address] [place] CYSTOMETROGRAM SIMPLE, [place] STEPHANIE PST VOID RESID US NON IMG, [place] IRRI BLAD SMPL LAVAGE&/INSTILL, [place] UROFLOWMETRY SIMPLE (05/12/2021 9:41 AM CDT) Narrative [...] rimary documented in this encounter Care Teams Clinical Trial Assistant Relationship Specialty Start Date End Date Elsewhere, Pcp PCP - General Family Medicine 05/08/21 documented as of this encounter
--- OUTSIDE RECORDS SUMMARY | 2022-08-03 13:06 | XMS_ITS | Encounter Summary ---
:1950 Author Organization [facility] Address [address] [place] [address] Care Team Providers Name Role Phone Unavailable Primary Care Provider Unavailable Reason for Visit Reason Comments Urinary Problem COVID Nurse Line Encounter Details Date Type Department Care Team Description 02/03/2021 Nurse Triage Department of [facility] Monserrat Griffin, Ur inary Problem; COVID MedicineMichelle M.S., R.N. Nurse Line Clinic, in [address] [facility] [address] [place], [place] [phone] [address] (Work) [phone] Social History Tobacco Use Types Packs/Day Years [...] within 24 hours. Patient was transferred to implementation project coordinator to schedule an appointment. Reason for Disposition ? ? [1] Can't control passage of urine (i.e., urinary incontinence) AND [2] new onset (< 2 weeks)or worsening Protocols used: URINARY [id number] Care Advice Patient/Caregiver understands and will follow care advice?: Yes, able to teach back CALL BACK IF: * Fever occurs * Unable to urinate and bladder feels full * You become worse. CARE ADVICE given per Urinary Symptoms (Adult) guideline. COVID-19 Nurse Line Screening ASSESSMENT Region Select appropriate region: : [place] Age Pathway Select approprite pathway: : Adult [...] water are not available, use a hand commercial crabber -Avoid touching your eyes, nose and mouth. [...] Yes The following references were used: [facility] novel coronavirus (COVID- 19) resources Nursing judgement documented in this encounter Plan of Treatment Not on filedocumented as of this encounter Visit Diagnoses Not on filedocumented in this encounter
--- OUTSIDE RECORDS SUMMARY | 2022-08-03 13:06 | XMS_ITS | Encounter Summary ---
:1950 Author Organization [facility] Address [address] [place] [address] Care Team Providers Name Role Phone Unavailable Primary Care Provider Unavailable Encounter Details Date Type Department Care Team Description 04/10/2020 Hospital Encounter Department of Cale Douglas Cardiovascular Diseases Flex Driver, Ch.B., in [facility] Ph.D. [address] [facility] [address] [place] [address] [phone] (Wo rk) Social History Tobacco Use Types [...] Component Value Ref Test Analysis Performed At [facility] gist Range Method Time Signature Date Time [facility] Interrogation +0000 LAB SYSTEM Session Implantable Medtronic GettingHired Pulse Generator LAB SYSTEM Turf Keeper Implantable LNQ11 Reveal [facility] Pulse Generator LINQ LAB SYSTEM Model Implantable [id number] [facility]ATION Pulse Generator LAB SYSTEM Serial Number Type Remote [facility] Interrogation LAB SYSTEM Session Clinic Name ECG Event - [facility] LAB SYSTEM [place] Implantable Implantable FOUNDATION Pulse Generator Diagnostic LAB [...] No ectopy was note d. *BATTERY STATUS: *FITTING SUPERVISOR since 25-FEB-2020, patient was notified. *EPISODES: [...]
--- OUTSIDE RECORDS SUMMARY | 2022-08-03 13:06 | XMS_ITS | Encounter Summary ---
:1950 Author Organization [facility] Address [address] [place] [address] Care Team Providers Name Role Phone Unavailable Primary Care Provider Unavailable Reason for Visit Reason Comments Appointment Encounter Details Date Type Department Care Team Description 03/05/2021 Clinical Communication Department of Family Unassigned , Pcp Appointment Medicine, [facility], in [place], [place] [address], [place] [address] [facility] [phone] Social History Tobacco Use Types Packs/Day Years [...] The following references were used: harmony Martinez, isotope technician Telephone Encounter - Rylee Walls - [...]
--- OUTSIDE RECORDS SUMMARY | 2022-08-03 13:06 | XMS_ITS | Encounter Summary ---
:1950 Author Organization [facility] Address [address] [place] [address] Care Team Providers Name Role Phone Unavailable Primary Care Provider Unavailable Encounter Details Date Type Department Care Team Description 03/10/2020 Hospital Encounter Department of Cale Douglas Cardiovascular Diseases Flex Driver, Ch.B., in [facility] Ph.D. [address] [facility] [address] [place] [address] [phone] (Wo rk) Social History Tobacco Use Types [...] Component Value Ref Test Analysis Performed At [facility] gist Range Method Time Signature Date Time [id number] [facility] Interrogation +0000 LAB SYSTEM Session Implantable Medtronic [facility] Pulse Generator LAB SYSTEM Configurator Implantable LNQ11 Reveal [facility] Pulse Generator LINQ LAB SYSTEM Model Implantable [id number] [facility] Pulse Generator LAB SYSTEM Serial Number Type Remote [facility] Interrogation LAB SYSTEM Session Clinic Name ECG Event - [facility] LAB SYSTEM Reed Implantable Implantable FOUNDATION Pulse Generator Diagnostic LAB SYSTEM Type Monitor Implantable [id number] [facility] Pulse Generator LAB SYSTEM Implant Date Anatomical Region Laterality Modality Other Specimen (Source) Anatomical Collection Method Collection Time Re ceived Time Location / / Volume Laterality 03/09/2020 6:05 AM CDT Narrative 03/16/2020 8:03 PM CDT *PURPOSE OF ENCOUNTER: * Summary transmission is received from Touch[employer] implantable loop recorder. *PRESENTING ECG: * Sinus rhythm at 75 bp m. No ectopy was present. 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
--- OUTSIDE RECORDS SUMMARY | 2022-08-03 13:06 | XMS_ITS | Encounter Summary ---
:1950 Author Organization [facility] Address [address] [place] [address] Care Team Providers Name Role Phone Unavailable Primary Care Provider Unavailable Encounter Details Date Type Department Care Team Description 01/18/2019 Hospital Encounter Department of Bud Saleh Pal pitations Cardiovascular Diseases Marjan in [facility] [address] [facility] [address] [place] [address] [phone] Social History Tobacco Use Types Packs/Day Years [...] Component Value Ref Test Analysis Performed At [facility] Range Method Time Signature Date Time [id number] [facility] Interrogation +0000 LAB SYSTEM Session Implantable Medtronic [facility] Pulse Generator LAB SYSTEM Furniture Technician Implantable LNQ11 Reveal [facility] Pulse Generator LINQ LAB SYSTEM Model Implantable [id number] [facility] Pulse Generator LAB SYSTEM Serial Number Type Remote [facility] Interrogation LAB SYSTEM Session Clinic Name ECG Event - [facility] LAB SYSTEM [place] Implantable Implantable FOUNDATION Pulse Generator Diagnostic LAB [...]
--- OUTSIDE RECORDS SUMMARY | 2022-08-03 13:06 | XMS_ITS | Encounter Summary ---
:1950 Author Organization [facility] Address [address] [place] [address] Care Team Providers Name Role Phone Unavailable Primary Care Provider Unavailable Encounter Details Date Type Department Care Team Description 01/04/2020 Hospital Encounter Department of Emmanuel Mclaughlin lpitations Cardiovascular Diseases Flex DriverB .S. in [facility] [address] [facility] [address] [place] [address] [phone] Social History Tobacco Use Types Packs/Day Years [...] Test Analysis Performed At [facility] gist Range Method Time Signature Date Time [id number] [facility] Interrogation +0000 LAB SYSTEM Session Implantable Medtronic Gorsh Pulse Generator LAB SYSTEM Bisque Cleaner Implantable LNQ11 Reveal [facility] Pulse Generator LINQ LAB SYSTEM Model Implantable [id number] [facility] Pulse Generator LAB SYSTEM Serial Number Type Remote [facility] Interrogation LAB SYSTEM Session Clinic Name ECG Event - [facility] LAB SYSTEM [place] Implantable Implantable FOUNDATION Pulse Generator Diagnostic LAB SYSTEM Type Monitor Implantable [id number] [facility] Pulse Generator LAB SYSTEM Implant Date [...]
--- OUTSIDE RECORDS SUMMARY | 2022-08-03 13:06 | XMS_ITS | Encounter Summary ---
:1950 Author Organization [facility] Address [address] [place] [address] Care Team Providers Name Role Phone Unavailable Primary Care Provider Unavailable Encounter Details Date Type Department Care Team Description 05/24/2019 Hospital Encounter Department of Asirvatham, Palpitat ions Cardiovascular Diseases Derian Driver M.D. in [facility] 200 [email or web address] [address] [place] [address] [phone] Social History Tobacco Use Types Packs/Day Years [...] Ref Test Analysis Performed At [facility] Range Method Time Signature Date Time [id number] [facility] Interrogation +0000 LAB SYSTEM Session Implantable [employer] Pulse Generator LAB SYSTEM Pediatric Physical Therapist Implantable LNQ11 Reveal [facility]OUNDATION Pulse Generator LINQ LAB SYSTEM Model Implantable [id number] [facility] Pulse Generator LAB SYSTEM Serial Number Type Remote [facility] Interrogation LAB SYSTEM Session Clinic Name ECG Event - [facility] LAB SYSTEM [place] Implantable Implantable FOUNDATION Pulse Generator Diagnostic LAB [...]
--- OUTSIDE RECORDS SUMMARY | 2022-08-03 13:06 | XMS_ITS | Encounter Summary ---
:1950 Author Organization [facility] Address [address] [place] [address] Care Team Providers Name Role Phone Unavailable Primary Care Provider Unavailable Encounter Details Date Type Department Care Team Description 06/27/2019 Hospital Encounter Department of Alexis Ledezma, Palp itations Cardiovascular Diseases in M.D., M.P.H. [place], [place] [address] [facility] [address] [place] [address] [phone] Social History Tobacco Use Types Packs/Day Years [...] Palpitations Results for this REMOTE FOLLOW UP CLIENT SERVICE MANAGER procedure a re in the results section. documented in this encounter Results LOOP RECORDER REMOTE FOLLOW UP (06/27/2019 1:23 PM CLIENT SERVICE MANAGER) Component Value Ref Test Analysis Performed At [facility] Range Method Time Signature Date Time [id number] [facility]ATION Interrogation +0000 LAB SYSTEM Session Implantable Medtronic FOUNDATION Pulse Generator LAB SYSTEM Assistant Manager Trainee Implantable LNQ11 Reveal FOUNDATION Pulse Generator LINQ LAB SYSTEM Model Implantable [id number] FOUNDATION Pulse Generator LAB SYSTEM Serial Number Type Remote [facility]ATION Interrogation LAB SYSTEM Session Clinic Name ECG Event - [facility] LAB SYSTEM [place] Implantable Implantable FOUNDATION Pulse Generator Diagnostic LAB SYSTEM Type Monitor Implantable [id number] [facility] Pulse Generator LAB SYSTEM Implant Date Anatomical Region Laterality Modality Other Specimen (Source) Anatomical Collection Method Collection Time Re ceived Time Location / / Volume Laterality 06/25/2019 10:11 AM CLIENT SERVICE MANAGER Narrative 06/28/2019 3:20 PM CLIENT SERVICE MANAGER *PURPOSE OF ENCOUNTER: * Summary transmission [...]
--- OUTSIDE RECORDS SUMMARY | 2022-08-03 13:06 | XMS_ITS | Encounter Summary ---
:1950 Author Organization [facility] Address [address] [place] [address] Care Team Providers Name Role Phone Unavailable Primary Care Provider Unavailable Reason for Referral Outpatient (Routine) - Closed Specialty Diagnoses / Procedures Referred By Contact Refer red To Contact Obstetrics and Diagnoses Incontinence Urinary Stress Female Bud Orosco [facility] Gynecology Marjan Schmitt [address] [place] [address] Referral ID Status Reason Start Date Expiration Date Visits Requ ested Visits Authorized [id number] Closed 02/17/2021 02/17/2022 1 1 Scheduling Instructions Schedule after pelvic ultrasound Reason for Visit Reason Comments Urinary Incontinence urinary incontinence and chel quency Appointment Request (Routine) - Closed Specialty Diagnoses / Procedures Referred By Contact Refer red To Contact Obstetrics and Gynecology Referral ID Status Reason Start Date Expiration Date Visits Requ ested Visits Authorized [id number] Closed 02/03/2021 02/03/2022 1 1 Encounter Details Date Type Department Care Team Description 02/17/2021 Comprehensive Visit Department of Bud Orosco Urinary Stress Female (Primary Dx); Obstetrics and Marina Schmitt M.D. 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 Attends [employer] Services: ??? Active Member of Clubs or [...] abdomen with pelvic exam.Please note that medical examiner, Ivette Suazo, was present as drafter construction for pelvic exam. Rectum: Deferred. Genitalia: External genitalia: Bartholin's, urethral, and Ratamosa's glands within normal limits. Smallinclusion cyst on [...] management, would refer this to UroGyn in [place]. Probable candidate for anterior posterior appears plus [...] behalf by Ivette Suazo, a trained medical examiner. The creation of this record is based onthe scribe's personal observations and the provider's statements to them. This document has been [facility] and approved by the attending provider. 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
--- OUTSIDE RECORDS SUMMARY | 2022-08-03 13:06 | XMS_ITS | Encounter Summary ---
:[address] [facility] Address [address] [place] [address] Care Team Providers Name Role Phone Unavailable Primary Care Provider Unavailable Encounter Details Date Type Department Care Team Description 12/15/2018 Hospital Encounter Department of Mariaa Lopez Pa lpitations Cardiovascular Diseases Marjan, M. B.A. in [facility] [address] [place] [address] [place] [address] [phone] Social History Tobacco Use Types Packs/Day Years [...] Component Value Ref Test Analysis Performed At [facility] Range Method Time Signature Date Time [id number] [facility] Interrogation +0000 LAB SYSTEM Session Implantable [employer] Pulse Generator LAB SYSTEM Bicycle Ii Assembler Implantable LNQ11 Reveal [facility] Pulse Generator LINQ LAB SYSTEM Model Implantable [id number] [facility] Pulse Generator LAB SYSTEM Serial Number Type Remote [facility] Interrogation LAB SYSTEM Session Clinic Name ECG Event - [facility] LAB SYSTEM [place] Implantable Implantable FOUNDATION Pulse Generator Diagnostic LAB SYSTEM Type Monitor Implantable [id number] [facility] Pulse Generator LAB SYSTEM Implant Date [...]
--- OUTSIDE RECORDS SUMMARY | 2022-08-03 13:06 | XMS_ITS | Encounter Summary ---
:1950 Author Organization [facility] Address [address] [place] [address] Care Team Providers Name Role Phone Unavailable Primary Care Provider Unavailable Encounter Details Date Type Department Care Team Description 02/20/2019 Hospital Encounter Department of Brooke Mcconnell Palpi tations Cardiovascular Diseases in M.B.B .S. [place], [place] [address] [facility] [address] [place] [address] [phone] Social History Tobacco Use Types Packs/Day Years [...] Component Value Ref Test Analysis Performed At [facility] Range Method Time Signature Date Time [id number] [facility] Interrogation +0000 LAB SYSTEM Session Implantable [employer] Pulse Generator LAB SYSTEM Private Security Guard Implantable LNQ11 Reveal [facility]OUNDATION Pulse Generator LINQ LAB SYSTEM Model Implantable [id number] [facility]ATION Pulse Generator LAB SYSTEM Serial Number Type Remote [facility] Interrogation LAB SYSTEM Session Clinic Name ECG Event - [facility] LAB SYSTEM [place] Implantable Implantable FOUNDATION Pulse Generator Diagnostic LAB SYSTEM Type Monitor Implantable [id number] [facility] Pulse Generator LAB SYSTEM Implant Date [...]
--- OUTSIDE RECORDS SUMMARY | 2022-08-03 13:06 | XMS_ITS | Encounter Summary ---
:1950 Author Organization [facility] Address [address] [place] [address] Care Team Providers Name Role Phone Unavailable Primary Care Provider Unavailable Encounter Details Date Type Department Care Team Description 07/27/2019 Hospital Encounter Department of Mariaa Lopez Pa lpitations Cardiovascular Diseases Marjan, M. B.A. in [facility] [address] [place] [address] [place] [address] [phone] Social History Tobacco Use Types Packs/Day Years [...] fo r this REMOTE FOLLOW UP AM SLAB STRIPPER procedure a re in the results section. documented in this encounter Results LOOP RECORDER REMOTE FOLLOW UP (07/27/2019 11:22 AM SLAB STRIPPER) Component Value Ref Test Analysis Performed At [facility] Range Method Time Signature Date Time [id number] [facility] Interrogation +0000 LAB SYSTEM Session Implantable Medtronic FOUNDATION Pulse Generator LAB SYSTEM Leather Belt Shaper Implantable LNQ11 Reveal [facility]ATION Pulse Generator LINQ LAB SYSTEM Model Implantable [id number] [facility]ATION Pulse Generator LAB SYSTEM Serial Number Type Remote [facility] Interrogation LAB SYSTEM Session Clinic Name ECG Event - [facility] LAB SYSTEM [place] Implantable Implantable FOUNDATION Pulse Generator Diagnostic LAB SYSTEM Type Monitor Implantable [id number] [facility] Pulse Generator LAB SYSTEM Implant Date Anatomical Region Laterality Modality Other Specimen (Source) Anatomical Collection Method Collection Time Re ceived Time Location / / Volume Laterality 07/27/2019 10:35 AM SLAB STRIPPER Narrative 08/02/2019 5:59 PM SLAB STRIPPER *PURPOSE OF ENCOUNTER: * Summary transmission is [...]
--- OUTSIDE RECORDS SUMMARY | 2022-08-03 13:06 | XMS_ITS | Encounter Summary ---
:1950 Author Organization [facility] Address [address] [place] [address] Care Team Providers Name Role Phone Unavailable Primary Care Provider Unavailable Encounter Details Date Type Department Care Team Description 10/01/2019 Hospital Encounter Department of Pernell Weston Cardiovascular Diseases Marjan Driver in [facility] [address] [facility] [address] [place] [address] [phone] Social History Tobacco Use Types Packs/Day Years [...] Palpitations Results for this REMOTE FOLLOW UP FIELD CASHIER procedure a re in the results section. documented in this encounter Results LOOP RECORDER REMOTE FOLLOW UP (10/01/2019 3:41 PM FIELD CASHIER) Component Value Ref Test Analysis Performed At [facility] Range Method Time Signature Date Time [id number] [facility] Interrogation +0000 LAB SYSTEM Session Implantable Medtronic FOUNDATION Pulse Generator LAB SYSTEM Roll Tender Implantable LNQ11 Reveal [facility]ATION Pulse Generator LINQ LAB SYSTEM Model Implantable [id number] [facility] Pulse Generator LAB SYSTEM Serial Number Type Remote [facility] Interrogation LAB SYSTEM Session Clinic Name ECG Event - [facility] LAB SYSTEM [place] Implantable Implantable FOUNDATION Pulse Generator Diagnostic LAB SYSTEM Type Monitor Implantable [id number] [facility] Pulse Generator LAB SYSTEM Implant Date Anatomical Region Laterality Modality Other Specimen (Source) Anatomical Collection Method Collection Time Re ceived Time Location / / Volume Laterality 09/29/2019 11:40 AM FIELD CASHIER Narrative 10/02/2019 12:36 PM FIELD CASHIER *PURPOSE OF ENCOUNTER: * Summary transmission is [...]
--- OUTSIDE RECORDS SUMMARY | 2022-08-03 13:06 | XMS_ITS | Encounter Summary ---
:1950 Author Organization [facility] Address [address] [place] [address] Care Team Providers Name Role Phone Unavailable Primary Care Provider Unavailable Encounter Details Date Type Department Care Team Description 11/14/2018 Hospital Encounter Department of Mariaa Lopez Pa lpitations Cardiovascular Diseases Marjan, M. B.A. in [facility] [address] [place] [address] [place] [address] [phone] Social History Tobacco Use Types Packs/Day Years [...] gist Range Method Time Signature Date Time [id number] [facility] Interrogation +0000 LAB SYSTEM Session Implantable [employer] Pulse Generator LAB SYSTEM Riprap Placing Supervisor Implantable LNQ11 Reveal [facility]OUNDATION Pulse Generator LINQ LAB SYSTEM Model Implantable [id number] [facility]OUND[facility] Pulse Generator LAB SYSTEM Serial Number Type Remote [facility] Interrogation LAB SYSTEM Session Clinic Name ECG Event - [facility] LAB SYSTEM [place] Implantable Implantable FOUNDATION Pulse Generator Diagnostic LAB SYSTEM Type Monitor Implantable [id number] [facility] Pulse Generator LAB SYSTEM Implant [...]
--- OUTSIDE RECORDS SUMMARY | 2022-08-03 13:06 | XMS_ITS | Encounter Summary ---
:1950 Author Organization [facility] Address [address] [place] [address] Care Team Providers Name Role Phone Unavailable Primary Care Provider Unavailable Encounter Details Date Type Department Care Team Description 03/21/2019 Hospital Encounter Department of Emmanuel Mclaughlin lpitations Cardiovascular Diseases Flex DriverB .S. in [facility] [address] [facility] [address] [place] [address] [phone] Social History Tobacco Use Types Packs/Day Years [...] Center Range Method Time Signature Date Time [id number] [facility] Interrogation +0000 LAB SYSTEM Session Implantable Medtronic [employer] [employer] Pulse Generator LAB SYSTEM Hammer Mill Operator Implantable LNQ11 Reveal [facility] Pulse Generator LINQ LAB SYSTEM Model Implantable [id number] [facility]OUNDATION Pulse Generator LAB SYSTEM Serial Number Type Remote [facility] Interrogation LAB SYSTEM Session Clinic Name ECG Event - [facility] LAB SYSTEM [place] Implantable Implantable FOUNDATION Pulse Generator Diagnostic LAB SYSTEM Type Monitor Implantable [id number] [facility] Pulse [...]
--- OUTSIDE RECORDS SUMMARY | 2022-08-03 13:06 | XMS_ITS | Encounter Summary ---
:1950 Author Organization [facility] Address [address] [place] [address] Care Team Providers Name Role Phone Unavailable Primary Care Provider Unavailable Encounter Details Date Type Department Care Team Description 12/03/2019 Hospital Encounter Department of [place], Palpitat ions Cardiovascular Diseases in Vic Acevedo M.D. [place], [place] [address] [facility] [address] [place] [address] [phone] Social History Tobacco Use Types Packs/Day Years [...] Component Value Ref Test Analysis Performed At [facility] Range Method Time Signature Date Time [id number] [facility]ATION Interrogation +0000 LAB SYSTEM Session Implantable Medtronic FOUNDATION Pulse Generator LAB SYSTEM Welfare Manager Implantable LNQ11 Reveal [facility] Pulse Generator LINQ LAB SYSTEM Model Implantable [id number] [facility] Pulse Generator LAB SYSTEM Serial Number Type Remote [facility] Interrogation LAB SYSTEM Session Clinic Name ECG Event - [facility] LAB SYSTEM [place] Implantable Implantable FOUNDATION Pulse Generator Diagnostic LAB [...]
--- OUTSIDE RECORDS SUMMARY | 2022-08-03 13:06 | XMS_ITS | Encounter Summary ---
:1950 Author Organization [facility] Address [address] [place] [address] Care Team Providers Name Role Phone Unavailable Primary Care Provider Unavailable Encounter Details Date Type Department Care Team Description 04/24/2019 Hospital Encounter Department of Asirv[place], Palpitat ions Cardiovascular Diseases Derian Driver M.D. in [facility] 200 [facility] [address] [place] [address] [phone] Social History Tobacco Use Types Packs/Day Years [...] Component Value Ref Test Analysis Performed At [facility] Range Method Time Signature Date Time [id number] [facility] Interrogation +0000 LAB SYSTEM Session Implantable Medtronic FOUNDATION Pulse Generator LAB SYSTEM [place] Writer Implantable LNQ11 Reveal [facility]ATION Pulse Generator LINQ LAB SYSTEM Model Implantable [id number] [facility] Pulse Generator LAB SYSTEM Serial Number Type Remote [facility] Interrogation LAB SYSTEM Session Clinic Name ECG Event - [facility] LAB SYSTEM [place] Implantable Implantable FOUNDATION Pulse Generator Diagnostic LAB [...]
--- OUTSIDE RECORDS SUMMARY | 2022-08-03 13:06 | XMS_ITS | Encounter Summary ---
:[address] [facility] Address [address] [place] [address] Care Team Providers Name Role Phone Unavailable Primary Care Provider Unavailable Encounter Details Date Type Department Care Team Description 08/28/2019 Hospital Encounter Department of Emmanuel Mclaughlin lpitations Cardiovascular Diseases Flex DriverB .S. in [facility] [address] [facility] [address] [place] [address] [phone] Social History Tobacco Use Types Packs/Day Years [...] Palpitations Results for this REMOTE FOLLOW UP CAT HOOKER procedure a re in the results section. documented in this encounter Results LOOP RECORDER REMOTE FOLLOW UP (08/28/2019 2:07 PM CAT HOOKER) Component Value Ref Test Analysis Performed At [facility] gist Range Method Time Signature Date Time [id number] [facility]ATION Interrogation +0000 LAB SYSTEM Session Implantable Medtronic FOUNDATION Pulse Generator LAB SYSTEM [place] Implantable LNQ11 Reveal FOUNDATION Pulse Generator LINQ LAB SYSTEM Model Implantable [id number] [facility]ATION Pulse Generator LAB SYSTEM Serial Number Type Remote [facility] Interrogation LAB SYSTEM Session Clinic Name ECG Event - [facility] LAB SYSTEM [place] Implantable Implantable FOUNDATION Pulse Generator Diagnostic LAB SYSTEM Type Monitor Implantable [id number] [facility]ATION Pulse Generator LAB SYSTEM Implant Date Anatomical Region Laterality Modality Other Specimen (Source) Anatomical Collection Method Collection Time Re ceived Time Location / / Volume Laterality 08/28/2019 10:39 AM CAT HOOKER Narrative 08/29/2019 5:24 PM CAT HOOKER *PURPOSE OF ENCOUNTER: * Summary transmission is [...] ranges from 1.5-4 hours per day. *INTERPRETING TERRITORY SUPERVISOR: *GAURAV Vaughan Emmanuel Romero CV IMPLANTABLE CARDIAC DE VICE documented in this encounter Visit Diagnoses Diagnosis Palpitations documented in this encounter
--- OUTSIDE RECORDS SUMMARY | 2022-08-03 13:06 | XMS_ITS | Encounter Summary ---
:1950 Author Organization [facility] Address [address] [place] [address] Care Team Providers Name Role Phone Unavailable Primary Care Provider Unavailable Encounter Details Date Type Department Care Team Description 09/13/2018 Hospital Encounter Department of Mariaa Lopez Pa lpitations Cardiovascular Diseases Marjan, M. B.A. in [facility] [address] [place] [address] [place] [address] [phone] Social History Tobacco Use Types Packs/Day Years [...] fo r this REMOTE FOLLOW UP AM DIET COUNSELOR procedure a re in the results section. documented in this encounter Results LOOP RECORDER REMOTE FOLLOW UP (09/13/2018 11:54 AM DIET COUNSELOR) Component Value Ref Test Analysis Performed At [facility] Range Method Time Signature Date Time [id number] [facility]ATION Interrogation +0000 LAB SYSTEM Session Implantable Medtronic FOUNDATION Pulse Generator LAB SYSTEM Pulp Screen Operator Implantable LNQ11 Reveal [facility]OUNDATION Pulse Generator LINQ LAB SYSTEM Model Implantable [id number] FOUNDATION Pulse Generator LAB SYSTEM Serial Number Type Remote [facility] Interrogation LAB SYSTEM Session Clinic Name ECG Event - [facility] LAB SYSTEM [place] Implantable Implantable FOUNDATION Pulse Generator Diagnostic LAB SYSTEM Type Monitor Implantable [id number] [facility]ATION Pulse Generator LAB SYSTEM Implant Date Anatomical Region Laterality Modality Other Specimen (Source) Anatomical Collection Method Collection Time Re ceived Time Location / / Volume Laterality 09/09/2018 4:22 AM DIET COUNSELOR Narrative 09/19/2018 12:35 PM DIET COUNSELOR *PURPOSE OF ENCOUNTER: * Summary transmission is [...]
--- OUTSIDE RECORDS SUMMARY | 2022-08-03 13:06 | XMS_ITS | Encounter Summary ---
:1950 Author Organization [facility] Address [address] [place] [address] Care Team Providers Name Role Phone Unavailable Primary Care Provider Unavailable Encounter Details Date Type Department Care Team Description 02/06/2020 Hospital Encounter Department of Cale Douglas Cardiovascular Diseases Flex Driver, Ch.B., in [facility] Ph.D. [address] [facility] [address] [place] [address] [phone] (Wo rk) Social History Tobacco Use Types [...] Component Value Ref Test Analysis Performed At [facility] gist Range Method Time Signature Date Time [id number] [facility] Interrogation +0000 LAB SYSTEM Session Implantable Medtronic [place] Pulse Generator LAB SYSTEM Deck Engine Operator Implantable LNQ11 Reveal [facility] Pulse Generator LINQ LAB SYSTEM Model Implantable [id number] [facility] Pulse Generator LAB SYSTEM Serial Number Type Remote [facility] Interrogation LAB SYSTEM Session Clinic Name ECG Event - [facility] LAB SYSTEM [place] Implantable Implantable FOUNDATION Pulse Generator Diagnostic LAB SYSTEM Type Monitor Implantable [id number] [facility] Pulse Generator LAB SYSTEM Implant Date Anatomical Region Laterality Modality Other Specimen (Source) Anatomical Collection Method Collection Time Re ceived Time Location / / Volume Laterality 02/06/2020 5:43 AM CDT Narrative 02/07/2020 7:30 AM CDT *PURPOSE OF ENCOUNTER: * Summary transmission is received from [employer] implantable loop recorder. *PRESENTING ECG: * Sinus [...]
--- OUTSIDE RECORDS SUMMARY | 2022-08-03 13:06 | XMS_ITS | Encounter Summary ---
:1950 Author Organization [facility] Address [address] [place] [address] Care Team Providers Name Role Phone Unavailable Primary Care Provider Unavailable Encounter Details Date Type Department Care Team Description 10/12/2018 Hospital Encounter Department of Jorge Dawkins Palpita tions Cardiovascular Diseases in [place], Ph.D. [place], [place] [address] [facility] [address] [place] [address] [phone] Social History Tobacco Use Types Packs/Day Years [...] fo r this REMOTE FOLLOW UP AM VENETIAN BLIND WASHER procedure a re in the results section. documented in this encounter Results LOOP RECORDER REMOTE FOLLOW UP (10/12/2018 11:48 AM VENETIAN BLIND WASHER) Component Value Ref Test Analysis Performed At [facility] Range Method Time Signature Date Time [id number] [facility] Interrogation +0000 LAB SYSTEM Session Implantable Medtronic FOUNDATION Pulse Generator LAB SYSTEM Polishing Wheel Repairer Implantable LNQ11 Reveal [facility]OUNDATION Pulse Generator LINQ LAB SYSTEM Model Implantable [id number] [facility] Pulse Generator LAB SYSTEM Serial Number Type Remote [facility] Interrogation LAB SYSTEM Session Clinic Name ECG Event - [facility] LAB SYSTEM [place] Implantable Implantable FOUNDATION Pulse Generator Diagnostic LAB SYSTEM Type Monitor Implantable [id number] [facility] Pulse Generator LAB SYSTEM Implant Date Anatomical Region Laterality Modality Other Specimen (Source) Anatomical Collection Method Collection Time Re ceived Time Location / / Volume Laterality 10/12/2018 4:41 AM VENETIAN BLIND WASHER Narrative 10/25/2018 11:03 AM VENETIAN BLIND WASHER *PURPOSE OF ENCOUNTER: * Summary transmission is [...]
--- OUTSIDE RECORDS SUMMARY | 2022-08-03 13:06 | XMS_ITS | Encounter Summary ---
:1950 Author Organization [facility] Address [address] [place] [address] Care Team Providers Name Role Phone Unavailable Primary Care Provider Unavailable Encounter Details Date Type Department Care Team Description 08/09/2018 Hospital Encounter Department of Emmanuel Mclaughlin lpitations Cardiovascular Diseases Flex DriverB .S. in [facility] [address] [facility] [address] [place] [address] [phone] Social History Tobacco Use Types Packs/Day Years [...] Palpitations Results for this REMOTE FOLLOW UP PULMONARY FELLOW procedure a re in the results section. documented in this encounter Results LOOP RECORDER REMOTE FOLLOW UP (08/09/2018 1:08 PM PULMONARY FELLOW) Component Value Ref Test Analysis Performed At [facility] gist Range Method Time Signature Date Time [id number] [facility] Interrogation +0000 LAB SYSTEM Session Implantable Medtronic FOUNDATION Pulse Generator LAB SYSTEM [place] Operator Implantable LNQ11 Reveal FOUNDATION Pulse Generator LINQ LAB SYSTEM Model Implantable [id number] FOUNDATION Pulse Generator LAB SYSTEM Serial Number Type Remote [facility]OUNDATION Interrogation LAB SYSTEM Session Clinic Name ECG Event - [facility] LAB SYSTEM [place] Implantable Implantable FOUNDATION Pulse Generator Diagnostic LAB SYSTEM Type Monitor Implantable [id number] [facility]ATION Pulse Generator LAB SYSTEM Implant Date Anatomical Region Laterality Modality Other Specimen (Source) Anatomical Collection Method Collection Time Re ceived Time Location / / Volume Laterality 08/06/2018 6:37 AM PULMONARY FELLOW Narrative 08/10/2018 4:24 PM PULMONARY FELLOW *PURPOSE OF ENCOUNTER: * Summary transmission is [...]
--- OUTSIDE RECORDS SUMMARY | 2022-08-03 13:06 | XMS_ITS | Encounter Summary ---
:1950 Author Organization [facility] Address [address] [place] [address] Care Team Providers Name Role Phone Unavailable Primary Care Provider Unavailable Encounter Details Date Type Department Care Team Description 10/31/2019 Hospital Encounter Department of Manuel, Palpitat ions Cardiovascular Diseases Cale Ignacio in [facility] malina Phillip, Ph.D. [address] [place] [phone] (Wo rk) Social History Tobacco Use Types [...] Component Value Ref Test Analysis Performed At [facility] Range Method Time Signature Date Time [id number] [facility] Interrogation +0000 LAB SYSTEM Session Implantable Medtronic Bona[place] Pulse Generator LAB SYSTEM Manager Flight Operations Implantable LNQ11 Reveal [facility] Pulse Generator LINQ LAB SYSTEM Model Implantable [id number] FOUNDATION Pulse Generator LAB SYSTEM Serial Number Type Remote [facility] Interrogation LAB SYSTEM Session Clinic Name ECG Event - [facility] LAB SYSTEM [place] Implantable Implantable FOUNDATION Pulse Generator Diagnostic LAB [...]
--- OUTSIDE RECORDS SUMMARY | 2022-08-03 13:07 | XMS_ITS | Encounter Summary ---
:1950 Author Organization [facility] Address [address] [place] [address] Care Team Providers Name Role Phone Unavailable Primary Care Provider Unavailable Reason for Visit Reason Comments Follow-up Appointment Request (Routine) - Closed Specialty Diagnoses / Procedures Referred By Contact Refer red To Contact Cardiovascular Disease Referral ID Status Reason Start Date Expiration Date Visits Requ ested Visits Authorized [id number] Closed 01/11/2018 07/10/2018 1 1 Encounter Details Date Type Department Care Team Description 02/27/2018 Office Visit Department of Ani, Stenosis Aorti c Valve Acquired (Primary Dx); Cardiovascular Medicine Marjan Tena Palp itations; in [facility] malina Hyperlipidemia; [address] [facility] [place] [address] Social History Tobacco Use Types Packs/Day [...] PRESENT ILLNESS Dinah Thorne is here for technical assistance consultant assessment prior to consultation with Dr. Law. [...] the near future. Family history- father of [place] at 61; he was diabetic. One uncle of [place] at 39, and her sisterhad a CVA in her 50's. Obesity- BMI 47. She has been exercising on the [employer] for 30 minutes 6-7 days per week. She is discouraged as she has not lost any weight. Our dental equipment repairer will visit with her. I recommended seeing a core piler either here or at home for guidance. [...] a 67 y.o. female who is at [facility] for her mod.aortic stenosis I [...]
--- OUTSIDE RECORDS SUMMARY | 2022-08-03 13:07 | XMS_ITS | Encounter Summary ---
:1950 Author Organization [facility] Address [address] [place] [address] Care Team Providers Name Role Phone Unavailable [...]
--- OUTSIDE RECORDS SUMMARY | 2022-08-03 13:07 | XMS_ITS | Encounter Summary ---
:1950 Author Organization [facility] Address [address] [place] [address] Care Team Providers Name Role Phone Unavailable Primary Care Provider Unavailable Encounter Details Date Type Department Care Team Description 02/24/2018 Hospital Encounter Department of Ani, Stenosis Aortic Valve Acquired; Radiology, Akhil Tena M.D. Shortness O f Breath; Building, in Dyspnea On Exer tion [place], [place] [address] [place] [address] Social History Tobacco Use Types Packs/Day Years [...] distal ICA in accordance with [facility] Symptomatic Carotid Endarterectomy Trial (NASCET). Procedure Note [...] distal ICA in accordance with Nor th Vincentian Symptomatic Carotid Endarterectomy Trial (NASCET). IMPRESSION: 1. [...]
--- OUTSIDE RECORDS SUMMARY | 2022-08-03 13:07 | XMS_ITS | Encounter Summary ---
:1950 Author Organization [facility] Address [address] [place] [address] Care Team Providers Name Role Phone Unavailable Primary Care Provider Unavailable Encounter Details Date Type Department Care Team Description 07/05/2018 Hospital Encounter Department of [place] ions Cardiovascular Diseases in [place], [place] [address] [facility] [address] [place] [address] [phone] Social History Tobacco Use Types Packs/Day Years [...] Palpitations Results for this REMOTE FOLLOW UP TRAINMASTER procedure a re in the results section. documented in this encounter Results LOOP RECORDER REMOTE FOLLOW UP (07/05/2018 3:32 PM TRAINMASTER) Component Value Ref Test Analysis Performed At [facility] Range Method Time Signature Date Time [id number] [facility] Interrogation +0000 LAB SYSTEM Session Implantable Medtronic FOUNDATION Pulse Generator LAB SYSTEM Humanities Division Chair Implantable LNQ11 Reveal FOUNDATION Pulse Generator LINQ LAB SYSTEM Model Implantable [id number] FOUNDATION Pulse Generator LAB SYSTEM Serial Number Type Remote [facility] Interrogation LAB SYSTEM Session Clinic Name ECG Event - [facility] LAB SYSTEM [place] Implantable Implantable FOUNDATION Pulse Generator Diagnostic LAB SYSTEM Type Monitor Implantable [id number] [facility] Pulse Generator LAB SYSTEM Implant Date Anatomical Region Laterality Modality Other Specimen (Source) Anatomical Collection Method Collection Time Re ceived Time Location / / Volume Laterality 07/05/2018 6:44 AM TRAINMASTER Narrative 08/29/2018 10:32 AM TRAINMASTER *PURPOSE OF ENCOUNTER: * Summary transmission is [...]
--- OUTSIDE RECORDS SUMMARY | 2022-08-03 13:07 | XMS_ITS | Encounter Summary ---
:1950 Author Organization [facility] Address [address] [place] [address] Care Team Providers Name Role Phone Unavailable Primary Care Provider Unavailable Encounter Details Date Type Department Care Team Description 06/06/2018 Hospital Encounter Department of Alexis Ledezma, Palp itations Cardiovascular Diseases in M[facility] [place], [place] [address] [facility] [address] [place] [phone] Social History Tobacco Use Types Packs/Day Years [...] Component Value Ref Test Analysis Performed At [facility] gist Range Method Time Signature Date Time [id number] [facility]ATION Interrogation +0000 LAB SYSTEM Session Implantable Medtronic K9 Design Pulse Generator LAB SYSTEM Community Living Instructor Implantable LNQ11 Reveal FOUNDATION Pulse Generator LINQ LAB SYSTEM Model Implantable [id number] FOUNDATION Pulse Generator LAB SYSTEM Serial Number Type Remote [facility] Interrogation LAB SYSTEM Session Clinic Name ECG Event - [facility] LAB SYSTEM [place] Implantable Implantable FOUNDATION Pulse Generator Diagnostic LAB [...]
--- OUTSIDE RECORDS SUMMARY | 2022-08-03 13:07 | XMS_ITS | Encounter Summary ---
:1950 Author Organization [facility] Address [address] [place] [address] Care Team Providers Name Role Phone Unavailable Primary Care Provider Unavailable Encounter Details Date Type Department Care Team Description 01/25/2018 Orders Only Department of Ani, Mallika, Stenosis Ao rtic Valve Acquired (Primary Dx); Cardiovascular Medicine M.Bo Shor tness Of Breath; in [facility] supervising film or videotape editor Dyspnea On Exertion [address] [place] [address] Social History Tobacco Use Types Packs/Day [...] the normal distal ICA in accordance with [facility] Croatian Symptomatic Carotid Endarterectomy Trial (NASCET). Procedure Note [...] the normal distal ICA in accordance with [facility] Croatian Symptomatic Carotid Endarterectomy Trial (NASCET). IMPRESSION: 1. [...] Signature Ventricular Rate 59 BPM MUSE ECG/Min OR Interval 148 ms MUSE QRSD Interval 76 ms MUSE QT Interval 392 ms MUSE QTC Interval 388 ms MUSE P [place] 49 degrees MUSE R [place] 46 degrees MUSE T Wave [place] 31 degrees MUSE Specimen Anatomical Collection Method [...]
--- OUTSIDE RECORDS SUMMARY | 2022-08-03 13:07 | XMS_ITS | Encounter Summary ---
:1950 Author Organization [facility] Address [address] [place] [address] Care Team Providers Name Role Phone Unavailable Primary Care Provider Unavailable Encounter Details Date Type Department Care Team Description 03/31/2018 Hospital Encounter Department of Mariaa Lopez Pa lpitations Cardiovascular Diseases Marjan, M. B.A. in [facility] [address] [place] [address] [place] [address] [phone] Social History Tobacco Use Types Packs/Day Years [...] Component Value Ref Test Analysis Performed At [facility] Range Method Time Signature Date Time [id number] [facility] Interrogation +0000 LAB SYSTEM Session Implantable Medtronic [employer] Pulse Generator LAB SYSTEM National Sales Representative Implantable LNQ11 Reveal [facility] Pulse Generator LINQ LAB SYSTEM Model Implantable [id number] [facility] Pulse Generator LAB SYSTEM Serial Number Type Remote [facility] Interrogation LAB SYSTEM Session Clinic Name ECG Event - [facility] LAB SYSTEM [place] Implantable Implantable FOUNDATION Pulse Generator Diagnostic LAB SYSTEM Type Monitor Implantable [id number] [facility] Pulse [...]
--- OUTSIDE RECORDS SUMMARY | 2022-08-03 13:07 | XMS_ITS | Encounter Summary ---
:1950 Author Organization [facility] Address [address] [place] [address] Care Team Providers Name Role Phone Unavailable Primary Care Provider Unavailable Encounter Details Date Type Department Care Team Description 01/25/2018 Clinical Communication Department of [facility], Cardiovascular Medicine Marjan Tena in [facility] marketing rotation associate [address] [place] [address] Social History Tobacco Use Types Packs/Day Years Used Date Smoking Tobacco: Never Sex Assigned at Date Recorded Not on file documented as of this encounter Miscellaneous Notes Telephone Encounter - Natalia Jefferson - 01/25/2018 1:27 PM CDT Dinah Thorne [phone] Female, 67 y.o., 1950 PCP: None Language: Malay Need Interp: No Last Weight: 113.2 kg Phone: H: [phone] W: [address] Natalia, There is no cornelius for the [...] allow me to answer your message in CallVU? That would be much easier to return to. Thank you! documented in this encounter Plan of Treatment Not on filedocumented as of this encounter Visit Diagnoses Not on filedocumented in this encounter
--- OUTSIDE RECORDS SUMMARY | 2022-08-03 13:07 | XMS_ITS | Encounter Summary ---
:[address] [facility] Address [address] [place] [address] Care Team Providers Name Role Phone Unavailable [...]
--- OUTSIDE RECORDS SUMMARY | 2022-08-03 13:07 | XMS_ITS | Encounter Summary ---
:1950 Author Organization [facility] Address [address] [place] [address] Care Team Providers Name Role Phone Unavailable Primary Care Provider Unavailable Encounter Details Date Type Department Care Team Description 12/27/2017 Hospital Encounter Department of Cale Douglas Cardiovascular Diseases Flex Driver, Ch.B., in [facility] Ph.D. [address] [facility] [address] [place] [phone] (Wo rk) Social History Tobacco Use Types [...] Component Value Ref Test Analysis Performed At [facility] gist Range Method Time Signature Date Time [id number] [facility] Interrogation +0000 LAB SYSTEM Session Implantable Medtronic [place] [employer] Pulse Generator LAB SYSTEM Public Health Educator Implantable LNQ11 Reveal [facility]OUNDATION Pulse Generator LINQ LAB SYSTEM Model Implantable [id number] [facility] Pulse Generator LAB SYSTEM Serial Number Type Remote [facility] Interrogation LAB SYSTEM Session Clinic Name ECG Event - [facility] LAB SYSTEM [place] Implantable Implantable FOUNDATION Pulse Generator Diagnostic LAB SYSTEM Type Monitor Implantable [id number] [facility] Pulse Generator LAB SYSTEM Implant [...]
--- OUTSIDE RECORDS SUMMARY | 2022-08-03 13:07 | XMS_ITS | Encounter Summary ---
:1950 Author Organization [facility] Address [address] [place] [address] Care Team Providers Name Role Phone Unavailable [...] Test ing Communication Cardiovascular Marjan Tena Orders ([facility] [place] [address] scheduled 02/27/18. [place], [place] [phone] primary and had an [phone] echo. is wor se. Requested echo images [...]
--- OUTSIDE RECORDS SUMMARY | 2022-08-03 13:07 | XMS_ITS | Encounter Summary ---
:1950 Author Organization [facility] Address [address] [place] [address] Care Team Providers Name Role Phone Unavailable Primary Care Provider Unavailable Encounter Details Date Type Department Care Team Description 05/02/2018 Hospital Encounter Department of Keegan Key Palpit ations Cardiovascular Diseases in .[place], [place] [address] [facility] [address] [place] [address] [phone] Social History Tobacco Use Types Packs/Day Years [...] Value Ref Test Analysis Performed At [facility] Range Method Time Signature Date Time [id number] [facility]OUNDATION Interrogation +0000 LAB SYSTEM Session Implantable Medtronic FOUNDATION Pulse Generator LAB SYSTEM Singe Machine Operator Implantable LNQ11 Reveal FOUNDATION Pulse Generator LINQ LAB SYSTEM Model Implantable [id number] FOUNDATION Pulse Generator LAB SYSTEM Serial Number Type Remote [facility]OUNDATION Interrogation LAB SYSTEM Session Clinic Name ECG Event - [facility] LAB SYSTEM [place] Implantable Implantable FOUNDATION Pulse Generator Diagnostic LAB SYSTEM Type Monitor Implantable [id number] [facility]OUNDATION Pulse Generator LAB SYSTEM Implant Date [...]
--- OUTSIDE RECORDS SUMMARY | 2022-08-03 13:07 | XMS_ITS | Encounter Summary ---
:1950 Author Organization [facility] Address [address] [place] [address] Care Team Providers Name Role Phone Unavailable [...]
--- OUTSIDE RECORDS SUMMARY | 2022-08-03 13:07 | XMS_ITS | Encounter Summary ---
:1950 Author Organization [facility] Address [address] [place] [address] Care Team Providers Name Role Phone Unavailable Primary Care Provider Unavailable Encounter Details Date Type Department Care Team Description 02/27/2018 Hospital Encounter Department of Pernell Weston Cardiovascular Diseases Marjan Driver in [facility] [address] [facility] [address] [place] [address] [phone] Social History Tobacco Use Types Packs/Day Years [...] Component Value Ref Test Analysis Performed At [facility] Range Method Time Signature Date Time [id number] [facility]OUNDATION Interrogation +0000 LAB SYSTEM Session Implantable Medtronic FOUNDATION Pulse Generator LAB SYSTEM Armature And Rotor Winder Implantable LNQ11 Reveal FOUNDATION Pulse Generator LINQ LAB SYSTEM Model Implantable [id number] [facility]OUNDATION Pulse Generator LAB SYSTEM Serial Number Type Remote [facility] Interrogation LAB SYSTEM Session Clinic Name ECG Event - [facility] LAB SYSTEM [place] Implantable Implantable FOUNDATION Pulse Generator Diagnostic LAB SYSTEM Type Monitor Implantable [id number] [facility] Pulse [...]
--- OUTSIDE RECORDS SUMMARY | 2022-08-03 13:07 | XMS_ITS | Encounter Summary ---
:1950 Author Organization [facility] Address [address] [place] [address] Care Team Providers Name Role Phone Unavailable Primary Care Provider Unavailable Encounter Details Date Type Department Care Team Description 01/26/2018 Hospital Encounter Department of [place] ions Cardiovascular Diseases in [place], [place] [address] [facility] [address] [place] [address] [phone] Social History Tobacco Use Types Packs/Day Years [...] [place] Range Method Time Signature Date Time [id number] [facility]OUNDATION Interrogation +0000 LAB SYSTEM Session Implantable Medtronic FOUNDATION Pulse Generator LAB SYSTEM Slitter Service And Setter Implantable LNQ11 Reveal FOUNDATION Pulse Generator LINQ LAB SYSTEM Model Implantable [id number] [facility]OUNDATION Pulse Generator LAB SYSTEM Serial Number Type Remote [facility]OUND[facility] Interrogation LAB SYSTEM Session Clinic Name ECG Event - [facility] LAB SYSTEM [place] Implantable Implantable FOUNDATION Pulse Generator Diagnostic LAB [...]
--- OUTSIDE RECORDS SUMMARY | 2022-08-03 13:07 | XMS_ITS | Encounter Summary ---
:1950 Author Organization [facility] Address [address] [place] [address] Care Team Providers Name Role Phone Unavailable Primary Care Provider Unavailable Reason for Visit Reason Onset Date Comments Appointment 01/19/2018 Encounter Details Date Type Department Care Team Description 01/19/2018 Clinical Communication Department of Elliot Law Cardiovascular Medicine Marjan Tena in [facility] malina [address] [place] [address] Social History Tobacco Use Types Packs/Day [...]
--- OUTSIDE RECORDS SUMMARY | 2022-08-03 13:07 | XMS_ITS | Encounter Summary ---
:1950 Author Organization [facility] Address [address] [place] [address] Care Team Providers Name Role Phone Unavailable [...]
[2022-08-03] MEDS: 0.9 % SODIUM CHLORIDE 1000 ml 1,000 ML IV (13:13)
[2022-08-03 13:24] LABS: Chloride* 110 mmol/L (96-114); Potassium* 4.6 mmol/L (3.6-5.1); Sodium* 141 mmol/L (135-149)
[2022-08-03 13:26] LABS: INR 2.06 (0.91-1.10); Prothrombin Time 24.2 Seconds
[2022-08-03 13:27] LABS: Blood Urea Nitrogen* 15 mg/dL (7-30); Carbon Dioxide* 27 mmol/L (20-32); Creatinine* 0.7 mg/dL (0.5-1.5); Estimated Glomerular Filt Rate 93 ml/min; Glucose* 101 mg/dL (60-115); Partial Thromboplastin Time* 35 Seconds (23-33)
[2022-08-03 13:46] LABS: D Dimer Quantitative* < 0.27 ug/ml (0.00-0.50)
[2022-08-03] MEDS: LORazepam 2 MG/ML inj 0.5 MG IVP (13:47)
--- NOTE | 2022-08-03 14:23 | PC.NURSE ---
Anesthesia came over with Ultrasound machine to attempt an IV. Between 3 of them, about 8 attempts were performed. Successful placement in the left AC. Patients appeared to be upset. Patient advocate called. All was well after patient advocate met with patient and .
--- NOTE | 2022-08-03 14:33 | CRLHL7_ITS ---
For Patients: As a result of the Century Cures Act, medical imaging exams and procedure reports are released immediately into your electronic medical record. You may view this report before your referring provider. If you have questions, please contact your health care provider. INDICATION: Left facial numbness. TECHNIQUE: Multiplanar multisequence noncontrast MR images acquired through the brain. COMPARISON: CT brain 08/03/2022. FINDINGS: Prominence of the ventricles and sulci compatible with mild diffuse cerebral volume loss. No mass effect or midline shift. No parenchymal signal abnormalities. No intracranial hemorrhage or pathologic extra-axial fluid collection. No diffusion restriction to suggest acute infarction. The major arterial flow voids of the skullbase are preserved. The globes are symmetric. The paranasal sinuses are well aerated. Trace mastoid fluid bilaterally. IMPRESSION: No acute infarction, mass effect, or intracranial hemorrhage. Dictated by Kailash Krishnamurthy MD @ 08/03/2022 5:34:18 PM (Electronically Signed)
--- NOTE | 2022-08-03 15:58 | ED.NURSE ---
Informed the patient of time for MRI at 1630. patient and are resting in the room. no changes with neuros.
[2022-08-03 16:05] LABS: SARS PCR* Negative SARS-CoV-2 (Negative)
== END 2022-08-03 18:40 | disposition home or self-care (01) ==
PROVIDERS: Emergency Provider Family Medicine; PCP Internal Medicine
DX: R29.810 Facial weakness (principal); Z79.01 Long term (current) use of anticoagulants; I65.21 Occlusion and stenosis of right carotid artery
CPT/HCPCS: 36415; 70450; 70496; 70498; 70551; 80048; 82565; 85379; 85610; 85730; 87635; 96374; 99285; J2060; J7030; Q9967

== ENCOUNTER 2022-08-17 09:48 | Outpatient (CLI) | payer MEDICARE, OTHER, SELFPAY ==
[2022-08-17 12:21] LABS: Cholesterol* 259 mg/dL (90-199); HDL Cholesterol* 59 mg/dL (>=50); LDL Cholesterol Calculated 178 mg/dL (<100); Triglycerides* 112 mg/dL (40-149)
== END 2022-08-17 09:49 | disposition home or self-care (01) ==
PROVIDERS: PCP Internal Medicine; Visit Provider Internal Medicine
DX: E03.9 Hypothyroidism, unspecified (principal); E78.5 Hyperlipidemia, unspecified
CPT/HCPCS: 80061; 84443

== ENCOUNTER 2022-09-20 07:44 | Outpatient (CLI) | payer MEDICARE, OTHER, SELFPAY ==
[2022-09-20 09:22] LABS: SARS PCR* POSITIVE SARS-CoV-2 (Negative)
== END 2022-09-20 07:45 | disposition home or self-care (01) ==
LOC: NFLDREF 07:50
PROVIDERS: PCP Internal Medicine; Visit Provider Internal Medicine
DX: U07.1 COVID-19 (principal)
CPT/HCPCS: 87635

== ENCOUNTER 2023-10-10 10:00 | Outpatient (CLI) | payer MEDICARE, OTHER, SELFPAY ==
--- OUTSIDE RECORDS SUMMARY | 2023-10-10 10:33 | XMS_ITS | Clinical Summary ---
Author Name Unknown Organization [facility] Address [place], [place] [address] Care Team Providers Care Supervisor [employer]ach[employer] Manufacturing Name Role Phone Nai Law MD Primary Care Provider [phone] Allergies Active Allergy Reactions Criticality Noted Date Comments Niacin Flushing 11/22/2007 Medications Medication Sig Dispensed Refills Start Date End Date Status DAILY VITAMIN TAB take 1 tablet by oral route once daily with food 0 Active aspirin (ECOTRIN) 81 mg enteric coated tablet Take 1 Tablet (81 mg) by mouth once daily with a meal. 0 1 Active TURMERIC ORAL Take 15 mL by mouth once daily. 0 Active ubidecarenone (COENZYME Q10 ORAL) Take 10 mL by mouth once daily. 0 Active ascorbic acid, vitamin C, (VITAMIN C) 1,000 mg tablet Take 1,000 mg by mouth once daily. 0 Active cholecalciferol, Vitamin D3, 5,000 unit tab tablet Take 5,000 units by mouth once daily. 0 Active amoxicillin (AMOXIL) 500 mg capsule Take 2,000 mg by mouth one time if needed. Take 4 capsules one hour before dental appointment 0 2 Active levothyroxine (SYNTHROID) 75 mcg tabletIndications:Acquire d hypothyroidism TAKE 1 TABLET DAILY 90 Tablet 0 2 Active atorvastatin (LIPITOR) 80 mg tabletIndications:Pure hypercholesterolemia Take 1 Tablet (80 mg) by mouth once daily. Due for cardiology care in 01/2024. Call in 10/2023 to schedule. Further refills to be provided after next cardiology visit. 90 Tablet 3 3 Active Active Problems Problem Noted Date Diagnosed Date History of transcatheter aortic valve replacemen t (TAVR) 12/14/2022 Hematoma of neck 10/29/2022 Overview: S/p right CEA, persistent bleeding while on warfarin Carotid stenosis 10/21/2022 Mid back pain on left side 10/03/2015 Chicken pox 01/21/2015 Overview: Not immune! Should get varicella not Zostavax!! Left carotid bruit 06/11/2014 Overview: Referred sound. Normal ultrasound 12/03. Hypothyroidism 06/11/2014 Pure hypercholesterolemia 06/16/2006 Mitral valve stenosis and aortic valve stenosis 06/16/2006 Unspecified essential hypertension 06/16/2006 Aortic stenosis Overview: 07/25/2017 mild-moderate Sep 2015. Mild increase from 2013. 3/6 murmur - 06/26/21 s/p TAVR Resolved Problems Problem Noted Date Diagnosed Date Resolved Date Nonspecific abnormal results of thyroid function study 11/07/2007 05/02/2018 Pure hypercholesterolemia 06/16/2006 Immunizations Name Administration Dates Next Due COVID-19 vaccine ([employer] 30mcg/0.3mL) PF, MDV 11/16/2020,10/26/2020 Hepatitis A (Adult) 06/22/2006,11/17/2005 Hepatitis B (Adult) 06/22/2006,12/22/2005,2005 Influenza, Inactivated IIV3 (Age 65+ Years) Preserv Free 05/02/2018 Pneumococcal Poly,23-Valent (Pneumovax) 09/27/19 20 Pneumococcal conj 13-Valent (Prevnar 13) 018 Td (Age >=7 Years) 09/27/2019,08/22/1999 Tdap 10/15/2008 Varicella Vaccine 04/17/2015,03/13/2015 Family History Medical History Relation Name Comments Good Health Brother 1 RICARDO Good Health Brother 2 TRACEY Heart Disease Father IHD Rhuematic fever deceasesd 63 Good Health Mother Stroke Sister 1 WING CVA @ 56 (2003) Good Health Sister 2 ALONDRA Relation Name Status Comments Brother 1 RICARDO Brother 2 TRACEY Father (Age 63) Mother Sister 1 WING Sister 2 ALONDRA Social History Tobacco Use Types Packs/Day Years Used Date Smoking Tobacco: Never Smokeless Tobacco: Never Tobacco Cessation:Counseling Given: Yes Alcohol Use Standard Drinks/Week Comments Not Currently 0 (1 standard drink = 0.6 oz pur e alcohol) PHQ-2 Answer Date Recorded PHQ-2 TOTAL SCORE 0 10/13/2021 Social Connections Answer Date Recorded Frequency of Communication with Friends and Fami ly Not on file 08/12/2021 Financial Resource Strain Answer Date R ecorded Difficulty of Paying Living Expenses Not on file 08/12/2021 Difficulty of Paying Living Expenses Not on file 08/12/2021 Sex and Gender Information Value Date Recorded Sex Assigned at Not on file Gender Identity Not on file Sexual Orientation Not on file Obstetrics History Para Term AB IAB SAB Ectopic Multiple Livin g Live Births 3 3 2 1 Date Outcome GA Total Labor Labor/2nd/3rd Weight Sex Delivery Anes PTL Zoë A1 A5 Name Cl in Term Term 26w 0d Y Feta l Clau se Last Filed Vital Signs Vital Sign Reading Time Taken Comments Blood Pressure 152/76 02/15/2023 1:46 PM CDT Pulse 68 02/15/2023 1:46 PM CDT Temperature 36.5 ??C (97.7 ??F) 11/01/2022 8:00 AM CD T Respiratory Rate 15 11/01/2022 8:00 AM CDT Oxygen Saturation 95% 02/15/2023 1:46 PM CDT Inhaled Oxygen Concentration - - Weight 99.8 kg (220 lb) 02/15/2023 1:46 PM CDT Height 154.9 cm (5' 0.98) 02/15/2023 1:46 PM CD T Body Mass Index 41.59 02/15/2023 1:46 PM CDT Plan of Treatment Health Maintenance Due Date Last Done Comments DEXA/DXA scan for age 65+ 2017 Mammogram for age 45-75 10/05/2017 10/05/19 17, 03/07/2015, 03/07/2015 (Completed outside of [facility]), Additional history exists Medicare Wellness for age 65+ 05/03/2019 05/02/2018 Depression screening for age 12+ 10/22/2022 10/22/2021, 10/09/2021, 07/10/2021, Additional history exists COVID-19 vaccine series ( season) 2023 08/11/2021, 11/16/2020, 10/26/2020 Influenza for age 65+ 04/22/2023 05/02/2018 BMI (ht and wt on same day) for age 18+ 02/16/2024 02/15/2023, 12/14/2022, 11/13/2021, Additional history exists Colonoscopy through age 75 12/05/202412/05, 12/05/2014, 02/04/2010 ([facility]) Lipids for age 45-75 06/10/2026 06/10/2021, 09/27/2019, 05/02/2018, Additional history exists Tetanus booster 09/27/2029 09/27/2019, 09/23, 08/22/1999 Tdap Completed 10/15/2008 Hepatitis C screening for ag e 18-79 Completed 09/27/2019 Pneumococcal series for age 65+ Completed , 05/02/2018 Medical Devices Implanted Type Area Precision Crop Manager Device Identifier Shelf Expiration Date Model / Serial / Lot Tissue Pericardium 0.8x8cm Xenosure - [id number] Implanted:Qty: 1 on 10/21/2022 by Gume Christine MD at [facility] Cv Implants Right: Neck [employer] 05/19/2028 0.8P8 / / [id number] Advance Directives Latest Code Status on File Code Status Date Activated Date Inactivated Comments Full Code 10/30/2022 7:30 AM 11/01/2022 1:47 PM Question Answer Comments Code Status Discussion: Reviewed Preferences Code Status History Code Status Date Activated Date Inactivated Comments Full Code 10/29/2022 6:42 AM 10/30/2022 7:30 AM Question Answer Comments Code Status Discussion: Unable to Assess Preferences, Provider to review later Full Code 10/21/2022 6:03 AM 10/22/2022 3:59 PM Question Answer Comments Code Status Discussion: Reviewed Preferences Full Code 02/15/2022 12:01 PM 02/15/2022 2:42 PM Question Answer Comments Code Status Discussion: Reviewed Preferences Full Code 06/26/2021 12:30 PM 06/27/2021 2:18 PM Question Answer Comments Code Status Discussion: Discussed Care Teams Supervisor [employer] Relationship Specialty Start Date End Date Nai Law MD [address] [place] [address] PCP - General Internal Medicine 05/21/21
== END 2023-10-10 10:01 | disposition home or self-care (01) ==
PROVIDERS: PCP Internal Medicine; Visit Provider Internal Medicine
DX: E78.2 Mixed hyperlipidemia (principal); E03.9 Hypothyroidism, unspecified
CPT/HCPCS: 80061; 84443

== ENCOUNTER 2024-04-27 17:07 | Emergency (ER) | payer MEDICARE, OTHER, SELFPAY ==
[2024-04-27 17:12] VITALS: BP 169/77; PULSE 67; RESP 18; TEMP 37.4; O2SAT 97; BMI 41.6
[2024-04-27] MEDS: cephALEXin 500 MG CAPSULE 1000 MG PO (17:39)
[2024-04-27] MEDS: ACETAMINOPHEN 500 MG TABLET 1000 MG PO (17:40)
--- OUTSIDE RECORDS SUMMARY | 2024-04-27 18:19 | XMS_ITS | Clinical Summary ---
Author Organization [facility] Address [place], [place] [address] Care Team Providers Care Dredge Pipeman Name Role Phone Nai Law MD Primary Care Provider [phone] Allergies Active Allergy Reactions Criticality Noted Date Comments Niacin Flushing 11/22/2007 Medications Medication Sig Dispensed Refills Start Date End Date Status DAILY VITAMIN TAB take 1 tablet by oral route once daily with food 0 Active aspirin (ECOTRIN) 81 mg enteric coated tablet Take 1 Tablet (81 mg) by mouth once daily with a meal. 0 06/27/20 21 Active TURMERIC ORAL Take 15 mL by mouth once daily. Active ubidecarenone (COENZYME Q10 ORAL) Take 10 mL by mouth once daily. Active ascorbic acid, vitamin C, (VITAMIN C) 1,000 mg tablet Take 1,000 mg by mouth once daily. Active cholecalciferol, Vitamin D3, 5,000 unit tab tablet Take 5,000 units by mouth once daily. Active amoxicillin (AMOXIL) 500 mg capsule Take 2,000 mg by mouth one time if needed. Take 4 capsules one hour before dental appointment 12/03/19 22 Active levothyroxine (SYNTHROID) 75 mcg tabletIndications:Acqui red hypothyroidism TAKE 1 TABLET DAILY 90 Tablet 04/20/20 22 Active atorvastatin (LIPITOR) 80 mg tabletIndications:Pure hypercholesterolemia Take 1 Tablet (80 mg) by mouth at bedtime. 90 Tablet 3 04/19/20 24 Active atorvastatin (LIPITOR) 80 mg tabletIndications:Pure hypercholesterolemia Take 1 Tablet (80 mg) by mouth once daily. Due for cardiology care in 01/2024. Call in 10/2023 to schedule. Further refills to be provided after next cardiology visit. 90 Tablet 3 02/16/20 23 2023 Discontinued atorvastatin (LIPITOR) 80 mg tabletIndications:Pure hypercholesterolemia TAKE INSTRUCTED BY YOUR PRESCRIBER 90 Tablet 3 04/10/20 24 2023 Discontinued(R eorder (E-cancel not sent)) Active Problems Problem Noted Date Diagnosed Date [...] function study 11/07/2007 05/02/2018 Pure hypercholesterolemia 06/16/2006 Encounters Date Type Department Care Team Description 04/19/[address] [place] [address] Robbie Girlado MD Refill Request (Atorvastatin 80 mg PO daily) 04/10/[address] [place] [address] Robbie Giraldo MD Refill Request (Atorvastatin) 02/01/2024 11:30 AM CDT [address]medicine [address] [place] [address] Robbie Giraldo MD 01/31/2024 Travel from Last 3 Months Immunizations Name Administration Dates Next Due COVID-19 vaccine ([employer] 30mcg/0.3mL) EAMON JACK 11/16/2020,10/26/2020 Hepatitis A (Adult) 06/22/2006,11/17/2005 Hepatitis B [...] Given: Yes Alcohol Use Standard Drinks/Week Comments Yes 0 (1 standard drink = 0.6 oz [...] Outcome GA Total Labor Labor/2nd/3rd Weight Sex Type Anes PTL Zoë A1 A5 Name Clin Term Term 26w0 d Y Demise Last Filed Vital Signs Vital Sign Reading Time Taken Comments Blood Pressure 138/76 12/29/2023 8:32 AM CDT Pulse 62 12/29/2023 8:32 AM CDT Temperature 36.5 ??C (97.7 ??F) 11/01/2022 8:00 AM CD T Respiratory Rate 15 11/01/2022 8:00 AM CDT Oxygen Saturation 98% 12/29/2023 8:32 AM CDT Inhaled Oxygen Concentration - - Weight 105.2 kg (232 lb) 12/29/2023 8:32 AM CDT Height 154.9 cm (5' 0.98) 02/15/2023 1:46 PM CD T Body Mass Index 43.86 02/15/2023 1:46 PM CDT Plan of Treatment Health Maintenance Due Date Last Done Comments DEXA/DXA scan for age 65+ 2017 Mammogram for age 45-75 10/05/2017 10/05/19 17, 03/07/2015, 03/07/2015 (Completed outside of [facility]), Additional history exists Medicare Wellness for age 65+ 05/03/2019 05/02/2018 Depression screening for age 12+ 10/22/2022 10/22/2021, 10/09/2021, 07/10/2021, Additional history exists BMI (ht and wt on same day) for age 18+ 02/16/2024 02/15/2023, 12/14/2022, 11/13/2021, Additional history exists COVID-19 vaccine series ( season) 2024 08/11/2021, 11/16/2020, 10/26/2020 Influenza for age 65+ 04/22/2024 05/02/2018 Colonoscopy through age 75 12/05/202412/05, 12/05/2014, 02/04/2010 (Completed outside of [facility]) Lipids for age 45-75 06/10/2026 06/10/2021, 09/27/2019, 05/02/2018, Additional history exists Tetanus booster 09/27/2029 09/27/2019, 09/23, 08/22/1999 Tdap Completed 10/15/2008 Hepatitis C screening for ag e 18-79 Completed 09/27/2019 Pneumococcal series for age 65+ Completed 0, 05/02/2018 Medical Devices Implanted Type Area Hogshead Hooper Device Identifier Shelf Expiration Date Model / Serial / Lot Tissue Pericardium 0.8x8cm Xenosure - [id number] Implanted:Qty: 1 on 10/21/2022 by Gume Christine MD at [facility] Cv Implants Right: Neck [employer] 05/19/2028 0.8P8 / / [id number] Procedures Procedure Name Priority Date/Time Associated Diagnosis Comments LIPID PANEL SATINDER 06/10/2021 10:56 AM CDT ANTI HCV Routine 09/27/2019 11:23 AM FABRIC WORKER Encounter for hepatitis C screening test for low risk patient SCAN-MAMMOGRAPHY REPORT 10/05/2016 12:00 AM FABRIC WORKER SCAN-COLONOSCOPY 12/05/2014 9:00 AM CDT from Last 3 Months or Most Recently Relevant to Health Maintenance Results * (ABNORMAL) LIPID PANEL (06/10/2021 10:56 AM CDT) CHOLESTEROL,TOTAL 228(H) 100 - 199 mg/dL 06/10/2021 11:41 AM CDT [facility] TRIGLYCERIDES 108 <150 mg/dL 06/10/2021 11:41 AM CDT [facility] HDL CHOLESTEROL 60 >40 mg/dL 11:41 AM CDT [facility] NON-HDL CHOLESTEROL 168(H) <145 mg/dl 06/10/2021 11:41 AM CDT [facility] CHOL/HDL RATIO 3.80 <4.50 06/10/2021 11:41 AM CDT [facility] LDL CHOLESTEROL 146(H) <=130 mg/dL 06/10/2021 11:41 AM CDT [facility] VLDL CHOLESTEROL 22 <=30 mg/dL 06/10/2021 11:41 AM CDT [facility] PROVIDER ORDERED STATUS RANDOM 06/10/2021 11:41 AM CDT [facility] Blood BLOOD SPECIMEN / Unknown Venipuncture / Unknown 06/10/2021 10:56 AM CDT 06/10/2021 11:15 AM CDT Mariaelena LOYOLA CHEMISTRY [facility] [address] [place] [address], * ANTI HCV (09/27/2019 11:23 AM FABRIC WORKER) HEPATITIS C ANTIBODY Non-React mai Non-React mai 09/27/2019 9:12 PM FABRIC WORKER [facility] Comment:Antibodies to HCV no t detected; does not exclude the possibility of exposure to HCV. Blood BLOOD SPECIMEN / Unknown Butterfly / Unknown 09/27/2019 11:23 AM FABRIC WORKER 09/27/2019 11:24 AM FABRIC WORKER Shirin Michelle MD SEND OUTS Performing Organization Address City/[facility]/ZIP Co de Phone Number [facility] [address] [place] [address], * SCAN-MAMMOGRAPHY REPORT (10/05/2016 12:00 AM FABRIC WORKER) Anatomical Region Laterality Modality Other Scanner OTHER * SCAN-COLONOSCOPY (12/05/2014 9:00 AM CDT) Narrative Transcriptions Robbie Pablo - 12/05/2014 7:49 AM CDT [facility], [address], [address], [place] [address] Patient Name: Dinah Thorne Gender: Female Exam Date: 12/05/2014 Visit Number: [id number] Age: 64 Years 5 Months Date of : 1950 Attending MD: Robbie Pablo MD Medical Record#: [id number] ----- Procedure: Colonoscopy Indications: Colorectal cancer screening Referring MD: Referral Self Primary MD: Teetee Michelle MD Medications: Intra Procedure Medications: Fentanyl given 0.1 mg by IV Midazolam given 3 mg by IV Complications: No immediate complications Procedure: An examination of the heart and lungs was performed and found to be withinacceptable limits. The patient was therefore deemed a reasonablecandidate for endoscopy . The risks and benefits of the procedure were explained to the patient.After obtaining informed consent, the patient was sedated under mydirection and I passed the scope without difficulty via the rectum to the cecum. The appendiceal orificeand ic valve were identified. The scope was retroflexed during theexamination The quality of the prep was excellent (Miralax/Gatorade/2tablets Bisacodyl/Magnesium Citrate). This was a complete examination throughout the entire colon. Findings: Diverticulosis. Location: - sigmoid. Description: mild.Quantity: few. No inflammation present. Anal canal: normal Remainder of the exam is normal. * Comments: withdrawal time 9 minutes Impression: Screening colonoscopy Diverticulosis of colon Plan Repeat colonoscopy in 10 years. If you have signs or symptoms of lower GI illness or a new diagnosis ofcolon cancer in an immediate family member, you should contact [facility] primary provider to discuss whether your next exam should berepeated sooner. We will attempt to contact you at appropriate intervals via U.S. mail. Wemay not be able to find you or contact you at that time, therefore youshould know that the responsibility for following our recommendation restswith you. If you don't hear from us at the time your procedure is due,please contact our office to schedule an appointment. If your contactinformation should change, please contact our office so that we can updateyour records. Electronically signed by: Robbie Pablo MD 12/05/2014 Medications: Medication Dose Sig Description Comments atenolol UNKNOWN take 1 tablet by oral route every day 40 mg Lipitor 80 mg tablet 80 mg take 1 tablet by oral route every day TIROSINT UNKNOWN take 1 capsule by oral route every day Allergies: Medication Name Ingredient Reaction Comment NIACIN Vital Signs: Date Time Systolic Diastolic Height Weight BMI 12/05/2014 830 AM 135 75 63 in 190.00 33.70 12/05/2014 9:33 AM 155 97 N/A N/A 12/05/2014 9:47 AM 130 68 N/A N/A 12/05/2014 10:00 AM 136 58 N/A N/A Race: Ethnicity: Not or Preferred Language: French cc: Referral Self Teetee Michelle MD [facility] [phone] Robbie Pablo MD OTHER from Last 3 Months or Most Recently Relevant to Health Maintenance Advance Directives * Full Code (Latest Code Status on File) Date Activated Date Inactivated Comments 10/30/2022 7:30 AM 11/01/2022 1:47 PM Question Answer Comments Code Status Discussion: Reviewed Preferences * Full Code Date Activated Date Inactivated Comments 10/29/2022 6:42 AM 10/30/2022 7:30 AM Question Answer Comments Code Status Discussion: Unable to Assess Preferences, Provider to review later * Full Code Date Activated Date Inactivated Comments 10/21/2022 6:03 AM 10/22/2022 3:59 PM Question Answer Comments Code Status Discussion: Reviewed Preferences * Full Code Date Activated Date Inactivated Comments 02/15/2022 12:01 PM 02/15/2022 2:42 PM Question Answer Comments Code Status Discussion: Reviewed Preferences * Full Code Date Activated Date Inactivated Comments 06/26/2021 12:30 PM 06/27/2021 2:18 PM Question Answer Comments Code Status Discussion: Discussed Care Teams Dredge Pipeman Relationship Specialty Start Date End Date Nai Law MD [address] [place] [address] PCP - General Internal Medicine 05/21/21
--- OUTSIDE RECORDS SUMMARY | 2024-04-27 18:19 | XMS_ITS | Continuity of Care Document ---
Author Organization [facility] Address [address] [address] [place] [address] Care Team Providers Care Mounter Flutes And Piccolos Name Role Phone [place], [place] Unavailable Unav ailable Procedures Procedure Date Colono Advance Directives Directive Yes / No Effective Date File Name No Information Encounters Encounter Description Practice Location Reason(s) For Visit Diagnoses Date Provider Providers Copied on Encounter [facility], [address] [address], [place], [place], [id number], [place] [facility] No Information [facility]. [address] [address], [place], [place], [id number], [place]. tel:[phone] Family History Family Member Type Diagnosis Age At Onset No Information Payers Payer name Insurance type Covered green party ID Authoriza tion(s) No Information Social History Type Description Quantity Date Captured Comments Sex Female Smoking Status No Information Chief Complaint And Reason For Visit No Information Reason For Referral Reason For Referral No Information History Of Present Illness Encounter Date Complaint History Of Prese nt Illness No Information Functional Status Date Functional Assessmen t No Information Instructions Date Instruction Additional Infor mation No Information Assessments Type Assessment Date No Information Patient Care Teams Name Effective Dates (start - stop) Status Members No Information
--- OUTSIDE RECORDS SUMMARY | 2024-04-27 18:19 | XMS_ITS | Continuity of Care Document ---
Author Organization [facility] Address [address] [address] [place] [address] Phone Care Team Providers Care Ground Crewman Name Role Phone Unavailable Unavailable Unavailable Allergies, Adverse Reactions, Alerts Substance Reaction Status Criticality niacin Active No Information Medications Medication Instructions Dosage Effective Dates (start - stop) Status Comments ATENOLOL (unknown strength) take 1 tablet by oral route every day Not Available - Active Lipitor 80 mg tablet take 1 tablet by oral route every day 80 MG - Active TIROSINT (unknown strength) take 1 capsule by oral route every day Not Available - Active Procedures Procedure Date UMP Charges Advance Directives Directive Yes / No Effective Date File Name No Information Encounters Encounter Description Practice Location Reason(s) For Visit Diagnoses Date Provider Providers Copied on Encounter [facility], [address] [address], [place], [place], [id number], tel:[phone] [facility] Screening colonoscopyDiver ticulosis of colonColon Cancer ScreeningDiverti culosis Of Colon No Information Referring Provider: Referral Self, USE FOR SELF REFERRALS. Family History Family Member Type Diagnosis Age At Onset Son Problem (finding) Liver disease Daughter Problem (finding) hypercholester olemia in first degree relative Daughter Problem (finding) knee surgeries Father Problem (finding) hypercholester olemia in first degree relative Mother Problem (finding) 90 Daughter Problem (finding) Alive and well Father Problem (finding) Payers Payer name Insurance type Covered republican ID Terranceangelita mauro(s) No Information Social History Type Description Quantity Date Captured Comments Alcohol Use Details Unknown Caffeine Use Details Unknown Tobacco Use Status No Information Smoking Status Never smoker Sex Female Vital Signs Date / Time: Height Weight BMI Pulse Rate Blood Pressure Temperature Respiratory Rate Body Surface Area Head Circumference Head Circ. Percentile Wt./Marciano. Percentile BMI percentile Pulse Ox Inhaled Ox 63.00 in 86.170 kg (190.00 lbs) 33.7 0 kg/m eter (2) 77 /min 135/75 mm[Hg] 0.00 F 17 /min 94 % Chief Complaint And Reason For Visit No Information Reason For Referral Reason For Referral No Information History Of Present Illness Encounter Date Complaint History Of Prese nt Illness No Information Functional Status Date Functional Assessmen t No Information Instructions Date Instruction Additional Infor gabriela Colon Cancer Prevention Related to Screening colonoscopy Diverticulosis/Diverticulitis Re lated to Screening colonoscopy Assessments Type Assessment Date assessment Screening colonoscopy 5 assessment Diverticulosis of colon 015 Patient Care Teams Name Effective Dates (start - stop) Status Members No Information
--- NOTE | 2024-04-27 18:27 | ED.SKABFB ---
HPI - Skin/Abscess/Foreign Bdy General Date Seen: 04/27/24 Chief complaint: Skin/Abscess/Foreign Body Stated complaint: Needs back abscess lanced Time Seen by Provider: 04/27/24 17:09 Source: patient and family Mode of arrival: ambulatory Limitations: no limitations History of Present Illness HPI narrative: Patient is a very nice 73-year-old female who on her left posterior axillary line, has an abscess, she initially went to the clinic, and was told it was too big to be treated there. Sent over to the emergency room. She squeezed this approximately a week ago and since then it has been getting larger, she is not on any anticoagulants other than a daily aspirin she now has no history of immunosuppression. Not taken any antibiotics for this, but does take antibiotics for heart valve when she gets dental work. Denies fevers chills or sweats, swing increasing in size, and is becoming more painful. Tetanus up to date: yes Related Data Home Medications ?Medication ?Instructions ?Recorded ?Confirmed aspirin 81 mg tablet,delayed 81 mg PO DAILY 08/03/22 04/27/24 release (Adult Aspirin Regimen) calcipotriene 0.005 % scalp topical 10/10/23 10/10/23 solution calcipotriene 0.005 % topical 1 applic topical BID 10/10/23 10/10/23 ointment clobetasol 0.05 % scalp solution topical 10/10/23 10/10/23 clobetasol 0.05 % topical ointment 1 applic topical BID 10/10/23 10/10/23 ketoconazole 2 % shampoo 1 applic topical 2XW 10/10/23 04/27/24 Previous Rx's ?Medication ?Instructions ?Recorded atorvastatin 80 mg tablet (Lipitor) 80 mg PO DAILY #90 tabs 08/05/22 amoxicillin 500 mg capsule 2,000 mg (4 x 500 mg) PO ONCE #4 04/24/24 caps levothyroxine 75 mcg tablet 75 mcg PO QDAY #90 tabs 04/26/24 Allergies Allergy/AdvReac Type Severity Reaction Status Date / Time niacin Allergy Intermediate Hives Verified 04/27/24 14:54 Review of Systems Status of ROS: Reports: 6 or more systems reviewed and unremarkable except as noted in History and below [facility] Medical History History of heart valve stenosis ?Z86.79 - Personal history of other diseases of the circulatory system (ICD-10) Surgical History History of right-sided carotid endarterectomy ?Z98.890 - Other specified postprocedural states (ICD-10) History of tubal ligation (1976) ?Z98.51 - Tubal ligation status (ICD-10) History of loop recorder (10/2016) ?Z98.890 - Other specified postprocedural states (ICD-10) History of hemorrhoidectomy (2014) ?Z98.890 - Other specified postprocedural states (ICD-10) History of dilation and curettage (1975) ?Z98.890 - Other specified postprocedural states (ICD-10) History of aortic valve replacement (06/26/21) ?Z95.2 - Presence of prosthetic heart valve (ICD-10) Social History What is your current living situation?: I presently have a place to live Problems where you live: no known problems In the past 12 months, utilities in danger of being shut off: no In past 12 months, lack of transportation kept you from medical appts, meetings, work, or getting things needed for daily living: no In the past 12 mos, have been you worried that your food would run out before you had money to buy more?: never true In the past 12 mos, the food you bought just didn't last and you didn't have money to buy more?: never true Smoking Status: Never smoker How often do you have a drink containing alcohol: never AUDIT-C Alcohol total score: 0 Non-prescribed substance use: denies use How often does anyone, including family, friends and others, physically hurt you: never How often does anyone, including family, friends and others, insult or talk down to you: never How often does anyone, including family, friends and others, threaten you with harm: never How often does anyone, including family, friends and others, scream or curse at you: rarely Little interest or pleasure in doing things: not at all Feeling down, depressed, or hopeless: not at all service: No Exam Narrative: Exam Narrative: Patient is noted parent distress she is seen in room 5, she has a large area of redness on her left posterior axillary line, or overlying approximately ribs 8 9. His approximately 7-8 cm in size, circular. There is a circular area inside where it looks like the primary care physician is injected, No discharge is noted, using the ultrasound machine I am able to see an area approximately half a cm subdermal of 2 x 2.5cm of collection of fluid, there appears to be no blood flow within this, very painful for the lady. Marcaine x6 mL was injected to within the cyst, and around the cyst, this resulted in somewhat decent anesthesia. I was able to incise it with a scalpel, and drain out approximately 10-15 mL of purulent sebaceous type fluid. I then packed it with half-inch regular packing, times approximately 12-16 inches. I did speak to from surgery, she recommended antibiotics, and follow-up in their clinic on Tuesday or Tuesday, information will be given to the patient, we talked about pain medication Tylenol ibuprofen and maybe something little stronger for the patient. The risks benefits and side effects of this are discussed in detail No cultures were done. Const: Vital Signs, click to edit/add: Vital Signs - 24 hr 04/27/24 17:12 Temperature 99.3 F Pulse Rate [Right Pulse Oximeter] 67 Respiratory Rate 18 Blood Pressure [Ri ght Upper Arm] 169/77 H Pulse Oximetry 97 Oxygen Delivery Me thod Room Air Documenting provider has reviewed patient's vital signs: yes Course Vital Signs Vital signs: Initial Vital Signs Temperature 99.3 F 04/27/24 17:12 Temperature Source Temporal Artery Scan 04/27/24 17:12 Pulse Rate 67 04/27/24 17:12 Pulse Rhythm Regular 04/27/24 17:12 Pulse Strength 3+ Normal 04/27/24 17:12 Respiratory Rate 18 04/27/24 17:12 Blood Pressure 169/77 H 04/27/24 17:12 Blood Pressure Mean 107 H 04/27/24 17:12 Blood Pressure Position Sitting 04/27/24 17:12 Pulse Oximetry 97 04/27/24 17:12 Oxygen Delivery Method Room Air 04/27/24 17:12 Vital Signs Temperature 99.3 F 04/27/24 17:12 Pulse Rate 67 04/27/24 17:12 Respiratory Rate 18 04/27/24 17:12 Blood Pressure 169/77 H 04/27/24 17:12 Pulse Oximetry 97 04/27/24 17:12 Oxygen Delivery Method Room Air 04/27/24 17:12 Temperature 99.3 F 04/27/24 17:12 Pulse Rate 67 04/27/24 17:12 Respiratory Rate 18 04/27/24 17:12 Blood Pressure 169/77 H 04/27/24 17:12 Pulse Oximetry 97 04/27/24 17:12 Oxygen Delivery Method Room Air 04/27/24 17:12 Medications Administered Medications: Discontinued Medications Generic Name Dose Route Start Last Admin Trade Name Tamara PRN Reason Stop Dose Admin Acetaminophen 1,000 mg 04/27/24 17:35 04/27/24 17:40 Acetaminophen 500 Mg Tablet PO 04/27/24 17:36 1,000 mg ONCE ONE Administration Cephalexin HCl 1,000 mg 04/27/24 17:35 04/27/24 17:39 Cephalexin 500 Mg Capsule PO 04/27/24 17:36 1,000 mg ONCE ONE Administration Discharge Plan Discharge Clinical Impression: Infected epithelial inclusion cyst Patient Disposition: Home w/ Parent or Adult Condition: Stable Instructions: Epidermal Inclusion Cysts (ED), Acute Wounds (ED) Additional Instructions: Pull out approximately 1 inch to an inch and half a packing per day, put bandage back on, there will be a little bit of discharge bleeding with this, but if there is a lot in her soaking through the pad please come back. Antibiotics, and a little bit of pain medication you may supplement this with the acetaminophen. Follow-up with the General surgery Tuesday or please call Tuesday morning for an appointment, at the number below. Tell them that you were in the emergency room and I talked to Dr. Wells [facility] [phone] Patient is placed on Keflex and oxycodone Activity Level: Light activity Discharge Diet: Regular Prescriptions: No Action calcipotriene 0.005 % ointment 1 applic topical BID calcipotriene 0.005 % solution topical clobetasol 0.05 % solution topical clobetasol 0.05 % ointment 1 applic topical BID ketoconazole 2 % shampoo 1 applic topical 2XW aspirin [Adult Aspirin Regimen] 81 mg tablet,delayed release (DR/EC) 81 mg PO DAILY atorvastatin [Lipitor] 80 mg tablet 80 mg PO DAILY Qty: 90 3RF amoxicillin 500 mg capsule 2,000 mg PO ONCE Qty: 4 0RF Rx Instructions: 1 hour prior to dental appointment levothyroxine 75 mcg tablet 75 mcg PO QDAY Qty: 90 1RF Follow Up/Referrals: Anival Wells MD [Staff Physician] - Nai Law MD [Primary Care Provider] - Stand Alone Forms: AfterYes Info Instructions
== END 2024-04-27 18:32 | disposition home or self-care (01) ==
LOC: ED 18:17
PROVIDERS: Emergency Provider Family Medicine; PCP Internal Medicine
DX: L72.0 Epidermal cyst (principal)
CPT/HCPCS: 10060; 99283; A9270

== ENCOUNTER 2024-10-17 08:00 | Outpatient (CLI) | payer MEDICARE, OTHER, SELFPAY | END 2024-10-17 08:01 | disposition home or self-care (01) | PROVIDERS: PCP Internal Medicine; Referring Provider Internal Medicine; Visit Provider Internal Medicine | DX: E78.5 Hyperlipidemia, unspecified (principal); E03.9 Hypothyroidism, unspecified | CPT/HCPCS: 80061; 84443 ==

== ENCOUNTER 2025-01-01 14:29 | Outpatient (CLI) | payer MEDICARE, OTHER, SELFPAY ==
--- NOTE | 2025-01-01 15:00 | CRLHL7_ITS ---
For Patients: As a result of the Century Cures Act, medical imaging exams and procedure reports are released immediately into your electronic medical record. You may view this report before your referring provider. If you have questions, please contact your health care provider. INDICATION: BILATERAL SCREENING MAMMOGRAM, ASYMPTOMATIC 74 Y/O FEMALE COMPARISON: 01/14/2023, 05/05/2020, 10/05/2016 TECHNIQUE: Digital mammogram in CC and MLO projections including computer-aided detection (CAD) and tomosynthesis. BREAST COMPOSITION: There are scattered areas of fibroglandular density. FINDINGS: No suspicious findings. ASSESSMENT: BI-RADS 1 Negative RECOMMENDATION: Annual screening mammogram. A lay language report of this examination will be provided to the patient. Dictated by: Fito Olguin MD @ 01/02/2025 11:41:03 (Electronically Signed)
== END 2025-01-01 14:30 | disposition home or self-care (01) ==
LOC: MAMMO 14:30
PROVIDERS: PCP Internal Medicine; Visit Provider Internal Medicine
DX: Z12.31 Encounter for screening mammogram for malignant neoplasm of breast (principal)
CPT/HCPCS: 77063; 77067

== ENCOUNTER 2025-05-21 08:14 | Outpatient (CLI) | payer MEDICARE, OTHER, SELFPAY | END 2025-05-21 08:15 | disposition home or self-care (01) | LOC: NFLDREF 05-22 12:02 | PROVIDERS: PCP Internal Medicine; Referring Provider Internal Medicine; Visit Provider Internal Medicine | DX: E66.813 Obesity, class 3 (principal); Z68.41 Body mass index [BMI] 40.0-44.9, adult | CPT/HCPCS: 80061; 84450; 84460 ==